=== PATIENT | female | born 1985 | race Caucasian/White ===

== ENCOUNTER 2019-10-09 03:39 | Emergency (ER) | payer BC, SELFPAY ==
--- NOTE | ~2019-10-09 | XR_ITS ---
EXAMINATION: XR chest 2V DATE: 10/09/2019 04:20 INDICATION: Midline chest pain TECHNIQUE: PA and lateral views of the chest were obtained. COMPARISON: Chest radiograph dated 08/23/2016 FINDINGS: The lungs remain clear with no focal airspace opacities, pulmonary edema, pleural effusion or pneumot horax. The cardiomediastinal silhouette is normal. Visualized bones and soft tissues are unremarkable . IMPRESSION: 1. No acute cardiopulmonary disease. Reviewed, dictated and finalized at location A.
[2019-10-09 03:43] VITALS: BP 135/81; PULSE 100; RESP 15; TEMP 36.8; O2SAT 100
[2019-10-09 03:45] VITALS: BP 135/81; PULSE 95; RESP 22; TEMP 36.8; O2SAT 100
--- NOTE | 2019-10-09 03:55 | ECG_ITS ---
Measurements Intervals [place] Rate: 70 P: 67 [place]: 130 QRS: 56 QRSD: 98 T: 35 QT: 410 QTc: 444 Interpretive Statements SINUS RHYTHM INCOMPLETE RIGHT BUNDLE BRANCH BLOCK BORDERLINE ECG Electronically Signed On 10-09-2019 7:09:27 CDT by Damir Balderas D.O.
--- NOTE | 2019-10-09 03:57 | ED.SOB ---
HPI - SOB/Dyspnea General Chief Complaint: Shortness of Breath/Dyspnea Stated Complaint: I can't breathe Time Seen by Provider: 10/09/19 03:44 History of Present Illness HPI Narrative: Sudden onset of sharp substernal chest pain shortly before coming in. Associated with SOB and feeling like she has to work for each breath . She reports that she has had a cough productive of yellow sputum recently and felt fatigued for the past 2 weeks. No fever, nausea, vomiting. Related Data Allergies Allergy/AdvReac Type Severity Reaction Status Date / Time adhesive Allergy Intermediate RASH Verified 09/14/19 15:29 latex Allergy Intermediate RASH Verified 09/14/19 15:29 hydrocodone Allergy Unknown Itching Verified 09/14/19 15:29 morphine Allergy Unknown Siezure Verified 09/14/19 15:29 phenol Allergy Unknown Swelling Verified 09/14/19 15:29 Review of Systems Review of Systems: All systems reviewed & are unremarkable except as noted in HPI and below Constitutional: Constitutional: Denies fever(s) and Reports weakness ENT: Denies sore throat Cardiovascular: Cardiovascular: Reports chest pain and Denies radiating jaw, neck or arm pain Respiratory: Respiratory: Reports cough and Reports dyspnea Neurologic: Reports dizziness, Reports headache(s) and Reports weakness PMFSH Past Medical History Medical History Chronic headaches Thyroid enlargement Family History Family History Grandparent Diabetes mellitus Breast cancer Father Family history unknown Social History Social History Smoking status: Never smoker Second hand tobacco smoke exposure: No Alcohol intake: current Drinks per week: 1 Substance use: never Substance use type: does not use Gender identity (if verbalized by the patient): Female Exam Const: General: healthy appearing, no acute distress and alert Orientation/consciousness: patient oriented x3 HENMT: Head: normal to inspection Chest: Chest palpation & inspection: normal inspection of the chest and no tenderness Resp: Effort & Inspection: normal respiratory effort Auscultation: clear to auscultation bilaterally Cardio: Rate: regular rate Rhythm: regular rhythm Skin: General skin exam: normal color Neuro: General: patient oriented x3 Speech: normal speech Extrem: General: normal to inspection Psych: Affect: Sad affect present and Anxious affect present Course Vital Signs Vital signs: Vital Signs Temperature 36.8 C 10/09/19 03:43 Pulse Rate 100 10/09/19 03:43 Respiratory Rate 15 10/09/19 03:43 Blood Pressure 135/81 10/09/19 03:43 Pulse Oximetry 100 10/09/19 03:43 Temperature 36.8 C 10/09/19 03:45 Pulse Rate 95 10/09/19 03:45 Respiratory Rate 22 H 10/09/19 03:45 Blood Pressure 135/81 10/09/19 03:45 Pulse Oximetry 100 10/09/19 03:45 MDM - SOB/Dyspnea MDM Narrative Medical decision making narrative: Mild improvement with toradol. Symptoms seems to be psychogenic. EKG and chest x-ray negative. Significantly reduced with ativan. ECG Data EKG #1: Attestation: I personally reviewed and interpreted this ECG as follows: ECG completion date: 10/09/19 ECG completion time: 03:53 EKG Interpretation: normal rate, sinus rhythm, no ectopy, no ST changes, normal QRS, normal QT and NL axis Discharge Plan Discharge Clinical Impression: Pleuritic chest pain Patient Disposition: Home, Self-Care Condition: Stable Instructions: Chest Pain (ED) Follow-up/Referrals: Lisa Pires MD [Primary Care Provider] -
[2019-10-09] MEDS: KETOROLAC (*BKC) 60 MG/2 ML VIAL IM (04:03)
[2019-10-09] MEDS: LORazepam 1 MG TABLET PO (05:04)
[2019-10-09 05:36] VITALS: BP 109/73; PULSE 75; RESP 16; TEMP 36.7; O2SAT 100
== END 2019-10-09 05:36 | disposition home or self-care (01) ==
PROVIDERS: Emergency Provider Emergency Medicine; PCP Family Medicine
DX: R07.81 Pleurodynia (principal); I45.10 Unspecified right bundle-branch block; E04.9 Nontoxic goiter, unspecified
CPT/HCPCS: 71046; 93005; 96372; 99283; A9270; J1885

== ENCOUNTER 2020-02-22 13:30 | Outpatient (CLI) | payer BC, SELFPAY ==
--- NOTE | ~2020-02-22 | XR_ITS ---
EXAMINATION: XR chest 2V EXAM DATE: 02/22/2020 13:43 INDICATION: Chest pain all over for 2 months since being COVID positive. TECHNIQUE: Frontal and lateral projections of the chest obtained and reviewed. Comparison is made to prior examination from 10/09/2019. FINDINGS: The lungs are clear. There are no pleural effusions. The cardiomediastinal silhouette is within normal limits. There is no pneumothorax suspected. The bones and soft tissues are unremarkab le. IMPRESSION: Unremarkable chest x-ray exam. Reviewed, dictated and finalized at location B. 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
== END 2020-02-22 13:31 | disposition home or self-care (01) ==
LOC: ANHIMG 13:35
PROVIDERS: PCP Family Medicine; Visit Provider Family Medicine
DX: R07.89 Other chest pain (principal)
CPT/HCPCS: 71046

== ENCOUNTER 2020-03-06 00:52 | Emergency (ER) | payer OTHER, BC, SELFPAY ==
--- NOTE | ~2020-03-06 | XR_ITS ---
EXAMINATION: XR chest 2V 03/06/2020 01:30 INDICATION: Chest pain and dyspnea PROCEDURE: PA and lateral views of the chest COMPARISON: 02/22/2020 FINDINGS: The lungs are clear. The cardiomediastinal silhouette is within normal limits. There are no pleural effusions. There is no pneumothorax suspected. IMPRESSION: 1: NO ACUTE CARDIOPULMONARY DISEASE. Reviewed, dictated and finalized at location A. D CARE
--- NOTE | ~2020-03-06 | CT_ITS ---
EXAMINATION: CTA chest PE protocol DATE: 03/06/2020 10:52 SOD STRIPPER INDICATION: Chest pain and dyspnea TECHNIQUE: Computed tomographic angiography (CTA) of the chest was performed with 100 mL Omnipaque-35 0 intravenous contrast. The dose-length product was 257.52 mGy-cm. Maximum intensity projection 3D-re constructions of the aorta and other arteries were constructed by the technologist on a separate work station. Automated exposure control and iterative reconstruction technique were employed. COMPARISON: CT dated 10/23/2017 FINDINGS: Study is technically adequate without evidence for pulmonary embolism. Heart size normal. N o thoracic lymphadenopathy. No evidence for aortic aneurysm or dissection. Significant pleural or per icardial effusion. Small fat-containing right diaphragmatic hernia. No pulmonary nodules or masses. N o focal airspace consolidation. No acute osseous abnormality. No osteolytic or osteoblastic lesions. IMPRESSION: 1. No acute cardiopulmonary disease. No evidence for pulmonary embolism. Reviewed, dictated and finalized at location A. STRIPPER
[2020-03-06 01:07] VITALS: BP 140/82; PULSE 75; RESP 18; O2SAT 100
--- NOTE | 2020-03-06 01:20 | ECG_ITS ---
Measurements Intervals [place] Rate: 80 P: 71 [place]: 118 QRS: 56 QRSD: 97 T: 24 QT: 382 QTc: 442 Interpretive Statements SINUS RHYTHM WITH SINUS ARRHYTHMIA WITH SHORT TX INTERVAL INCOMPLETE RIGHT BUNDLE BRANCH BLOCK NONSPECIFIC T-WAVE ABNORMALITY- ANTERIOR LEADS BORDERLINE ECG Electronically Signed On 03-06-2020 7:39:06 SENIOR [employer]YROLL MANAGER by Damir Balderas D.O.
--- NOTE | 2020-03-06 01:26 | PC.NURSE ---
pt to xray at this time
--- NOTE | 2020-03-06 01:46 | ED.CHESTPAIN ---
HPI - Chest Pain General Chief Complaint: Chest Pain Stated Complaint: CP/ SOB Time Seen by Provider: 03/06/20 00:56 Source: RN notes reviewed History of Present Illness HPI narrative: Patient presents to emergency department from home for chest pain. Patient states that over the past 3-week she has been having midsternal chest pain described as a burning sensation states that it is associated with shortness of breath and the pain gets worse with deep inspiration. Patient states she did have Covid approximately 2 months ago she denies any fevers or chills notes an occasional intermittent cough denies any abdominal pain nausea vomiting diarrhea or any other symptoms. The patient was seen by her primary care physician earlier this week and was started on steroids with minimal relief. She states she took no pain medication this evening Related Data Allergies Allergy/AdvReac Type Severity Reaction Status Date / Time adhesive Allergy Intermediate RASH Verified 03/01/20 08:24 latex Allergy Intermediate RASH Verified 03/01/20 08:24 hydrocodone Allergy Unknown Itching Verified 03/01/20 08:24 morphine Allergy Unknown Siezure Verified 03/01/20 08:24 phenol Allergy Unknown Swelling Verified 03/01/20 08:24 Review of Systems Review of Systems: Narrative: Gen.: Denies fevers or chills ENT: Denies congestion Respiratory: Reports shortness of breath CV: HPI GI: Denies abdominal pain nausea, emesis or diarrhea denies burning, urgency, frequency or hematuria Musculoskeletal: Denies back pain or muscle pain Neuro: Denies numbness, tingling, weakness or focal weakness Skin: Denies rash Except as documented, all other systems reviewed and negative [facility] Past Medical History Medical History (Updated 03/06/20 @ 03:31 by Russell Swan DO) Chronic headaches Thyroid enlargement Family History Family History Grandparent Diabetes mellitus Breast cancer Father Family history unknown Social History Social History Social History: Smoking status: Never smoker Second hand tobacco smoke exposure: No Alcohol intake: current Substance use: never Substance use type: does not use Gender identity (if verbalized by the patient): Female Exam Narrative: Exam Narrative: APPEARANCE: No acute distress, nontoxic, resting in bed EYES: EOMI HEENT: Normocephalic, atraumatic, OMM RESPIRATORY: No respiratory distress Clear to auscultation bilaterally with no rhonchi wheezing or rales. CARDIOVASCULAR: Regular rate and rhythm without murmurs rubs or gallops. Chest: Tender palpation over the lower midsternal chest wall no swelling or ecchymosis pain increased with deep inspiration ABDOMINAL: Soft, nontender, nondistended, no rebound or guarding MUSCULOSKELETAl: Moves all extremities. No clubbing, cyanosis or edema. NEURO: Awake and alert. Following commands, speech normal, no focal deficits SKIN:: Warm, dry. No rashes lesions or abrasions PSYCHIATRIC: Normal affect/mood, Course Course Emergency Course: Reviewed old records. Patient is had history of pleuritic chest pain dating back to September Discussed with patient results of workup and diagnosis. Discussed need for follow-up with primary care, proper use of medication, and reasons to return to the emergency department. Patient understands and agrees to current treatment plan Vital Signs Vital signs: Vital Signs Pulse Rate 75 03/06/20 01:07 Respiratory Rate 18 03/06/20 01:07 Blood Pressure 140/82 03/06/20 01:07 Pulse Oximetry 100 03/06/20 01:07 Pulse Rate 51 L 03/06/20 02:53 Respiratory Rate 20 03/06/20 02:53 Blood Pressure 117/75 03/06/20 02:53 Pulse Oximetry 98 03/06/20 02:53 MDM - Chest Pain MDM Narrative Medical decision making narrative: Patient's EKGs and labs are without significant high risk changes. Cardiac risk fact
[2020-03-06 01:55] LABS: Basophils Percent Auto 0.1 % (0.2-1.2); Hematocrit 35.5 % (37.0-47.0); Hemoglobin 11.5 g/dL (12.0-15.0); Immature Granulocyte Absolute 0.13 K/mm3 (0.00-0.031); Immature Granulocyte Percent A 0.9 % (0-0.5); Lymphocytes Absolute Auto 1.04 K/mm3 (0.9-3.2); Lymphocytes Percent Auto 7.4 % (18.3-44.2); Mean Corpuscular HGB Conc 32.4 g/dl (32-36); Mean Corpuscular Hemoglobin 29.7 pg (26-34); Mean Corpuscular Volume 91.7 fl (80-100); Mean Platelet Volume 10.7 fl (7.4-10.4); Monocytes Absolute Auto 0.7 K/mm3 (0.1-0.6); Monocytes Percent Auto 4.8 % (2.6-8.5); Neutrophils Absolute Auto 12.2 K/mm3 (1.3-6.7); Neutrophils Percent Auto 86.8 % (45.5-73.1); Platelet Count Result 289 k/mm3 (150-375); Red Blood Count 3.87 M/mm3 (4.2-5.4); Red Cell Distribution Width 13.5 % (11.5-14.5); White Blood Count 14.1 K/mm3 (4.5-10.0)
[2020-03-06] MEDS: LORazepam INJ (*CRX) 2 MG/ML VIAL 0.5 MG IV PUSH (01:57)
[2020-03-06] MEDS: KETOROLAC 30 MG/ML VIAL (*BKC) IV PUSH (01:57)
[2020-03-06 02:06] LABS: Prothrombin Time 14.1 Seconds (11.1-14.7)
[2020-03-06 02:07] LABS: Partial Thromboplastin Time 27.2 SECONDS (22.3-36.8)
[2020-03-06 02:08] LABS: Anion Gap 6 mmol/L (8-16); Blood Urea Nitrogen 14 mg/dL (7-17); Calcium 9.1 mg/dL (8.4-10.2); Carbon Dioxide 28 mmol/L (22-30); Chloride 104 mmol/L (98-107); Estimated Glomerular Filt Rate > 60; Glucose 135 mg/dL (65-105); Potassium 4.1 mmol/L (3.4-5.0); Sodium 138 mmol/L (137-145)
[2020-03-06 02:09] LABS: D Dimer 0.84 ug/mL (<0.48)
[2020-03-06 02:15] LABS: CRP < 0.5 mg/dL (<1.0)
[2020-03-06 02:21] LABS: Troponin I < 0.012 ng/mL (0.000-0.034)
[2020-03-06 02:26] LABS: Erythrocyte Sedimentation Rate 10 mm/hr (0-20)
[2020-03-06 02:53] VITALS: BP 117/75; PULSE 51; RESP 20; O2SAT 98
[2020-03-06 03:50] VITALS: BP 119/77; PULSE 56; RESP 18; O2SAT 97
[2020-03-06] MEDS: ALBUTEROL SULFATE (*SP) AEROSOL 1 PUFF 2 PUFF INHALATION (03:59)
[2020-03-06 04:04] VITALS: PULSE 63; RESP 16
[2020-03-06 04:13] VITALS: BP 124/76; PULSE 60; RESP 17; O2SAT 96
== END 2020-03-06 04:15 | disposition home or self-care (01) ==
PROVIDERS: Emergency Provider Emergency Medicine; PCP Family Medicine
DX: J40 Bronchitis, not specified as acute or chronic (principal); E04.9 Nontoxic goiter, unspecified; I45.10 Unspecified right bundle-branch block; R94.31 Abnormal electrocardiogram [ECG] [EKG]
CPT/HCPCS: 36415; 71046; 71275; 80048; 81025; 84484; 85025; 85380; 85610; 85652; 85730; 86140; 93005; 94640; 96374; 96375; 99284; A9270; J1885; J2060; Q9967

== ENCOUNTER → 2020-05-31 14:06 | Outpatient (CLI) | payer OTHER, BC, SELFPAY ==
--- NOTE | ~2020-05-31 | MR_ITS ---
EXAMINATION: MR cervical spine wo/w con EXAM DATE: 05/31/2020 16:01 INDICATION: M54.12 - Radiculopathy, cervical region paresthesia of skin, radiculopathy. Right arm wea kness. TECHNIQUE: Multi-sequential, multiplanar MR images of the cervical spine were obtained without contra st. Axial T2, axial T2 MERGE sequence. Sagittal T1, T2, T2 fat saturation images also obtained. Axi al T1 weighted sequence. Patient was then injected with 15 mL Multihance intravenous contrast and re imaged. Postcontrast axial and sagittal T1-weighted fat saturation sequences were obtained. There ar e no prior studies for comparison. FINDINGS: The vertebral bodies are aligned in the AP dimension. Vertebral body and disc heights are well-maintained. There are no suspicious marrow signal abnormalities. The spinal cord signal intensit y and intrinsic morphology is normal. Cervicomedullary junction is normal in appearance. There are no areas of abnormal enhancement on the post contrast images. Mildly low-lying cerebellar tonsils not m eeting criteria for Chiari I malformation. Level by level evaluation: C2-C3: Disc does not extend beyond the endplate margin. Uncovertebral joint arthropathy: None. Facet joint arthropathy: Mild bilateral. Neural foraminal stenosis: No stenosis. Central canal stenosis: No stenosis. C3-C4: Disc does not extend beyond the endplate margin. Uncovertebral joint arthropathy: None. Facet joint arthropathy: Mild bilateral. Neural foraminal stenosis: No stenosis. Central canal stenosis: No stenosis. C4-C5: Disc does not extend beyond the endplate margin. Uncovertebral joint arthropathy: None. Facet joint arthropathy: Mild bilateral. Neural foraminal stenosis: No stenosis. Central canal stenosis: No stenosis. C5-C6: Disc does not extend beyond the endplate margin. Uncovertebral joint arthropathy: Mild bilateral. Facet joint arthropathy: None. Neural foraminal stenosis: No stenosis. Central canal stenosis: No stenosis. C6-C7: Disc does not extend beyond the endplate margin. Uncovertebral joint arthropathy: Mild left. Facet joint arthropathy: Mild bilateral. Neural foraminal stenosis: No stenosis. Central canal stenosis: No stenosis. C7-T1: Disc does not extend beyond the endplate margin. Uncovertebral joint arthropathy: None. Facet joint arthropathy: Mild bilateral. Neural foraminal stenosis: No stenosis. Central canal stenosis: No stenosis. IMPRESSION: 1. Mild cervical arthropathy. 2. Normal cord signal. 3. Mildly low-lying cerebellar tonsils. Reviewed, dictated and finalized at location A.
--- NOTE | ~2020-05-31 | MR_ITS ---
EXAMINATION: MR brain IAC wo/w con EXAM DATE: 05/31/2020 16:02 INDICATION: M54.81 - Occipital neuralgia Paresthesia of skin, radiculopathy . Right ear pain, right-s ided numbness, right arm weakness, right leg pressure. Symptoms and traumatic but progressing. Histor y of head injuries. TECHNIQUE: Multi-sequential, multiplanar MR images of the brain, brainstem, internal auditory canals were obtained without contrast. Whole brain sagittal T1, axial diffusion, gradient echo (T2*), T1, T 2, FLAIR sequences obtained. High resolution coronal 3-D FIESTA, coronal T1 FSE, axial T1 FSPGR of t he internal auditory canals. Patient was then injected with 15 cc Multihance contrast intravenously. Postcontrast axial and coronal T1 weighted whole brain, axial and coronal high resolution T1 IAC seq uences obtained. Comparison is made to prior examination from 10/24/2017. FINDINGS: No evidence of mastoid or middle ear opacification. The 7th/8th cranial nerve complexes a re symmetric, normal in course and caliber. No cerebellopontine angle masses. Posterior fossa unrem arkable. Mildly low-lying cerebellar tonsils, not meeting criteria for Chiari 1 malformation. There are no are as of restricted diffusion to suggest acute infarction. There is no acute hemorrhage seen on the T2* , a hemosiderin sensitive sequence. No intraparenchymal brain mass. The ventricles are normal in siz e. There are no extra-axial collections. Flow voids are seen in the cerebral arteries on the T2-lexi ghted sequences consistent with their expected patency. The orbits are unremarkable. Soft tissue is unremarkable. There are no areas of abnormal enhancement on the postcontrast images. IMPRESSION: Unremarkable brain/IAC examination. Reviewed, dictated and finalized at location A.
[2020-05-31 14:35] LABS: Estimated Glomerular Filt Rate > 60
== END ==
PROVIDERS: PCP Family Medicine; Visit Provider Family Medicine
DX: M47.812 Spondylosis without myelopathy or radiculopathy, cervical region (principal); M54.81 Occipital neuralgia
CPT/HCPCS: 70553; 72156; A9577

== ENCOUNTER 2020-10-03 13:45 | Emergency (ER) | payer BC, SELFPAY ==
--- NOTE | ~2020-10-03 | XR_ITS ---
EXAMINATION: XR elbow RT min 3V DATE: 10/03/2020 14:35 INDICATION: Right elbow pain. TECHNIQUE: 4 views of right elbow were obtained. COMPARISON: None. FINDINGS: Bone alignment is normal. No fracture. Joint spaces are well maintained. There is no elbow joint effusion. IMPRESSION: 1. Normal right elbow. Reviewed, dictated and finalized at location A. IMPRESSION: 1. Normal right elbow.
--- NOTE | ~2020-10-03 | XR_ITS ---
EXAMINATION: XR shoulder RT min 2V DATE: 10/03/2020 14:34 INDICATION: Right shoulder pain. TECHNIQUE: 4 views of right shoulder were obtained. COMPARISON: None. FINDINGS: Bone alignment is normal. No fracture. Joint spaces are well maintained. IMPRESSION: 1. Normal right shoulder. Reviewed, dictated and finalized at location A. IMPRESSION: 1. Normal right shoulder.
[2020-10-03 14:18] VITALS: BP 144/91; PULSE 96; RESP 18; TEMP 37.4; O2SAT 100
[2020-10-03 16:09] VITALS: BP 137/95; PULSE 89; RESP 18; TEMP 36.7; O2SAT 100
--- NOTE | 2020-10-03 17:10 | ED.GENADULT ---
HPI - General Adult General Chief complaint: Extremity Injury, Upper Stated complaint: right arm not working Time Seen by Provider: 10/03/20 16:07 Source: patient and RN notes reviewed Mode of arrival: ambulatory Limitations: no limitations History of Present Illness HPI narrative: Patient is a 35-year-old female who presents with paresthesia of the right upper extremity patient has had this for years and gets exacerbations throughout the year has been followed by primary care for this and has a neurology referral coming up she gets episodes of shooting pain from the right upper and lower extremities that comes and goes patient today notes that she had an occurrence over the weekend which has persisted for the last 3 days she denies any other injury trauma or complaints it is localized to the upper extremity made worse with activity and movement Related Data Home Medications Medication Instructions Recorded Confirmed mecobalamin (vitamin B12) [B12 mcg PO 10/03/20 10/03/20 Active] Allergies Allergy/AdvReac Type Severity Reaction Status Date / Time adhesive Allergy Intermediate RASH Verified 10/03/20 16:15 latex Allergy Intermediate RASH Verified 10/03/20 16:15 hydrocodone Allergy Unknown Itching Verified 10/03/20 16:15 morphine Allergy Unknown Siezure Verified 10/03/20 16:15 phenol Allergy Unknown Swelling Verified 10/03/20 16:15 Review of Systems Review of Systems: All systems reviewed & are unremarkable except as noted in HPI and below PMFSH Past Medical History Medical History Chronic headaches Complex posttraumatic stress disorder Thyroid enlargement Family History Family History Grandparent Diabetes mellitus Breast cancer Father Family history unknown Social History Social History Social History: Smoking status: Never smoker Second hand tobacco smoke exposure: No Alcohol intake: current Alcohol use details: Rarely Substance use: never Substance use type: does not use Gender identity (if verbalized by the patient): Female Exam Narrative: GENERAL: Well-appearing, well-nourished, and in no acute distress. HEAD: Normocephalic, atraumatic. EYES: PERRLA and EOMI. ENT: Nares clear, no rhinorrhea or epistaxis. Mucous membranes moist. NECK: Supple. No adenopathy or masses. No carotid bruits or JVD CHEST: Clear to auscultation. No respiratory distress. No wheezes rales or rhonchi HEART: Regular rate and rhythm. No murmur heard. EXTREMITIES: Normal range of motion. No edema. SKIN: Warm, dry, no rash. NEURO: No focal deficits. Alert and oriented x3. Cranial nerves II through XII grossly intact. Normal speech and gait. Motor and sensory intact and symmetrical in extremities PSYCH: Normal mood and affect. Course Course Emergency Course: Patient in the room no distress will be discharged to follow with primary care and her neurology appointment felt appropriate for outpatient reevaluation hemodynamically stable no distress Vital Signs Vital signs: Vital Signs Temperature 99.4 F 10/03/20 14:18 Pulse Rate 96 10/03/20 14:18 Respiratory Rate 18 10/03/20 14:18 Blood Pressure 144/91 H 10/03/20 14:18 Pulse Oximetry 100 10/03/20 14:18 Temperature 98.1 F 10/03/20 16:09 Pulse Rate 89 10/03/20 16:09 Respiratory Rate 18 10/03/20 16:09 Blood Pressure 137/95 H 10/03/20 16:09 Pulse Oximetry 100 10/03/20 16:09 Medical Decision Making MDM Narrative Medical decision making narrative: Patient's paresthesias are without focal neurological deficits on exam. Subarachnoid hemorrhage is felt to be unlikey at this time. There is no history of fever, and neck is supple without meningismus, making meningitis unlikely. No traumatic history or signs of trauma on exam. No risk factors f
[2020-10-03] MEDS: IBUPROFEN 600 MG TABLET PO (17:25)
[2020-10-03 17:37] VITALS: BP 113/73; PULSE 96; RESP 15; TEMP 36.7; O2SAT 100
== END 2020-10-03 17:35 | disposition home or self-care (01) ==
PROVIDERS: Emergency Provider Emergency Medicine; PCP Family Medicine
DX: R20.2 Paresthesia of skin (principal); E04.9 Nontoxic goiter, unspecified
CPT/HCPCS: 73030; 73080; 99284; A9270

== ENCOUNTER 2020-10-20 14:49 | Observation (INO) | payer BC, SELFPAY ==
[2020-10-20] VITALS (26 sets, daily range): BP systolic 79–155; BP diastolic 34–95; PULSE 18–96; RESP 7–20; TEMP 36.5–38.3; O2SAT 96–100; BMI 29.7
--- NOTE | ~2020-10-20 | US_ITS ---
EXAMINATION: US thyroid DATE: 10/21/2020 09:47 INDICATION: Enlarged thyroid. TECHNIQUE: Multiple ultrasound images of the thyroid were obtained. COMPARISON: Ultrasound 01/23/2019 FINDINGS: The right thyroid lobe measures 4.7 x 1.0 x 1.4 cm. The left thyroid lobe measures 3.8 x 1.1 x 1.3 c m. In the right thyroid lobe, there is a 5 mm solid, hypoechoic, qnnhp-tumq-usuy nodule with lobulat ed margin without echogenic foci (TI-RADS TR4). IMPRESSION: 1. Small thyroid nodule, likely not clinically significant. No follow-up is needed. Reviewed, dictated and finalized at location A. IMPRESSION: 1. Small thyroid nodule, likely not clinically significant. No follow-up is nee ded.
--- NOTE | ~2020-10-20 | CT_ITS ---
EXAMINATION: CTA brain carotid DATE: 10/20/2020 15:47 INDICATION: Speech deficit. Right hemiparesis. TECHNIQUE: Computed tomographic angiography (CTA) of the head was performed without and with 100 mL O mnipaque-350 intravenous contrast. CTA of the neck was performed with intravenous contrast. Automated exposure control and iterative reconstruction technique were employed. The dose-length product was 1 614.77 mGy-cm. Maximum intensity projection and volume rendered 3D-reconstructions were created by wale martinez technologist on a separate workstation. COMPARISON: Head CT 06/09/2018, brain MRI 05/31/2020 FINDINGS: HEAD CTA: There is no intracranial hemorrhage, acute infarction, or abnormal intracranial mass lesion . The ventricles are normal in size. The orbits are normal. The mastoid air cells are normal. The precious tebral arteries are codominant. There is no significant stenosis of basilar artery or the posterior c erebral arteries. The posterior communicating arteries are normal. There is no significant stenosis o f the intracranial internal carotid arteries or anterior or middle cerebral arteries. Anterior commun icating artery is normal. There is no aneurysm. NECK CTA: There are no pathologically enlarged lymph nodes. There is no significant stenosis of the v ertebral arteries. There is no visible plaque in the proximal internal carotid arteries. There is 0% stenosis of the proximal right internal carotid artery relative to normal distal artery lumen diamete r (NASCET criteria). There is 0% stenosis of the proximal left internal carotid artery relative to no rmal distal artery lumen diameter. There is multilevel facet joint osteoarthritis. IMPRESSION: 1. Normal brain. No aneurysm or significant intracranial arterial stenosis. 2. 0% stenosis of the proximal internal carotid arteries relative to normal distal artery lumen diame ters (NASCET criteria). Reviewed, dictated and finalized at location A. IMPRESSION: 1. Normal brain. No aneurysm or significant intracranial arterial stenosis. 2. 0% stenosis of the proximal internal carotid arteries relative to normal dis annabella artery lumen diameters (NASCET criteria).
--- NOTE | ~2020-10-20 | XR_ITS ---
EXAMINATION: XR barium swallow modified EXAM DATE: 10/21/2020 10:07 INDICATION: Aphasia, right hemiparesis. TECHNIQUE: Modified barium esophagram was performed by speech pathologist with radiologist Dr. Camden Jackson present to administered fluoroscopy. Speech pathologist administered barium in varying consis tencies as per speech pathologist documentation. This was recorded on tape. There was total fluorosc opic time of 0.5 minutes The DAP for this procedure was 0.25 Gycm2. A total of 2 images sent to [facility] from the exam. FINDINGS: Oral stage: Adequate function. Pharyngeal phase: Adequate function. Laryngeal penetration: None. Aspiration: None. Laryngeal sensitivity: Present. IMPRESSION: Normal modified esophagram exam. Please refer to speech pathologist findings and specifi c feeding recommendations. Reviewed, dictated and finalized at location A. IMPRESSION: Normal modified esophagram exam. Please refer to speech pathologis t findings and specific feeding recommendations.
--- NOTE | ~2020-10-20 | MR_ITS ---
EXAMINATION: MR brain/brain stem wo/w con DATE: 10/21/2020 09:33 INDICATION: Right hemiparesis. Expressive aphasia. Chronic headache. TECHNIQUE: Magnetic resonance imaging (MRI) of the brain and brainstem was performed without and with 15 mL MultiHance intravenous contrast. Sequences included sagittal and axial T1-weighted FSE, axial diffusion-weighted FS EPI, axial T2*-weighted GRE, axial T2-weighted FLAIR Propeller, and axial T2-we ighted Propeller. Postcontrast sequences included axial, sagittal, and coronal T1-weighted FSE. Appar ent diffusion coefficient (ADC) maps were created. COMPARISON: Brain MRI 05/31/2020, head CT 10/20/2020 FINDINGS: There is no intracranial hemorrhage, acute infarction, or abnormal intracranial mass lesion . The ventricles are normal in size. The paranasal sinuses are clear. The orbits are normal. The mast oid air cells are normal. IMPRESSION: 1. Normal brain. Reviewed, dictated and finalized at location A. IMPRESSION: 1. Normal brain.
[2020-10-20 15:53] LABS: Basophils Percent Auto 0.2 % (0.2-1.2); Eosinophils Absolute Auto 0.1 K/mm3 (0-0.3); Eosinophils Percent Auto 0.8 % (0-4.4); Hematocrit 39.8 % (37.0-47.0); Hemoglobin 13.2 g/dL (12.0-15.0); Immature Granulocyte Absolute 0.03 K/mm3 (0.00-0.031); Immature Granulocyte Percent A 0.3 % (0-0.5); Lymphocytes Absolute Auto 2.06 K/mm3 (0.9-3.2); Lymphocytes Percent Auto 23.1 % (18.3-44.2); Mean Corpuscular HGB Conc 33.2 g/dl (32-36); Mean Corpuscular Hemoglobin 29.6 pg (26-34); Mean Corpuscular Volume 89.2 fl (80-100); Monocytes Absolute Auto 0.6 K/mm3 (0.1-0.6); Monocytes Percent Auto 6.6 % (2.6-8.5); Neutrophils Absolute Auto 6.1 K/mm3 (1.3-6.7); Platelet Count Result 254 k/mm3 (150-375); Red Blood Count 4.46 M/mm3 (4.2-5.4); Red Cell Distribution Width 12.6 % (11.5-14.5); White Blood Count 8.9 K/mm3 (4.5-10.0)
[2020-10-20 16:05] LABS: Prothrombin Time 12.6 Seconds (11.1-14.7)
[2020-10-20 16:06] LABS: Partial Thromboplastin Time 32.1 SECONDS (22.3-36.8)
[2020-10-20 16:17] LABS: Anion Gap 11 mmol/L (8-16); Blood Urea Nitrogen 12 mg/dL (7-17); Calcium 9.6 mg/dL (8.4-10.2); Carbon Dioxide 23 mmol/L (22-30); Chloride 103 mmol/L (98-107); Estimated CRCL calculation 94 ml/min; Estimated Glomerular Filt Rate > 60; Glucose 105 mg/dL (65-110); Potassium 3.9 mmol/L (3.4-5.0); Sodium 137 mmol/L (137-145)
[2020-10-20 16:28] LABS: Troponin I < 0.012 ng/mL (0.000-0.034)
--- NOTE | 2020-10-20 16:33 | ED.NEUROSD ---
HPI - Neuro Symptoms/Deficit General Chief Complaint: Weakness Stated Complaint: right side weakness Time Seen by Provider: 10/20/20 16:10 Source: patient Mode of arrival: ambulatory Limitations: no limitations History of Present Illness HPI Narrative: Patient is a 35-year-old female complaining of right-sided weakness and numbness that started 3 weeks ago but worse today. Patient also complaining of aphasia that started today approximately 2 hours prior to arrival. Patient states that her right sided weakness and muscles worse today and she fell due to it. Patient's states that she was started on gabapentin for right-sided paresthesia approximately 3 weeks ago due to pinched nerve . Related Data Home Medications Medication Instructions Recorded Confirmed mecobalamin (vitamin B12) [B12 mcg PO 10/03/20 10/03/20 Active] Allergies Allergy/AdvReac Type Severity Reaction Status Date / Time adhesive Allergy Intermediate RASH Verified 10/05/20 16:01 latex Allergy Intermediate RASH Verified 10/05/20 16:01 hydrocodone Allergy Unknown Itching Verified 10/05/20 16:01 morphine Allergy Unknown Siezure Verified 10/05/20 16:01 phenol Allergy Unknown Swelling Verified 10/05/20 16:01 Review of Systems Review of Systems: All systems reviewed & are unremarkable except as noted in HPI and below Constitutional: Constitutional: Denies body ache(s), Denies chills, Denies excessive sweating, Denies fatigue, Denies fever(s), Denies headache(s), Denies lethargy, Denies malaise, Denies weakness and Denies weight loss Eyes: Eyes: Denies blurry vision, Denies change in vision and Denies loss of vision ENT: Denies dizziness, Denies ear discharge, Denies headache(s), Denies lip swelling, Denies epistaxis, Denies nasal congestion, Denies neck pain, Denies throat swelling and Denies tongue swelling Cardiovascular: Cardiovascular: Denies chest pain, Denies chest pain at rest, Denies chest pain with activity, Denies diaphoresis, Denies rapid heart rate, Denies edema, Denies irregular heart rhythm, Denies lightheadedness, Denies palpitations, Denies dyspnea and Denies dyspnea on exertion Respiratory: Respiratory: Denies chest congestion, Denies cough, Denies hemoptysis, Denies dyspnea and Denies dyspnea on exertion Gastrointestinal: Gastrointestinal: Denies abdominal pain, Denies melena, Denies hematochezia, Denies diarrhea, Denies nausea, Denies vomiting and Denies hematemesis Musculoskeletal: Musculoskeletal: Denies abnormal gait, Denies deformity, Denies joint swelling, Denies limited range of motion, Denies neck pain and Denies numbness Neurologic: Denies confusion, Denies dizziness, Denies headache(s), Denies loss of vision and Denies Other visual disturbances Psychiatric: Psychiatric: Denies confusion, Denies depression, Denies auditory hallucinations, Denies homicidal ideation and Denies suicidal ideation Endocrine: Endocrine: Denies cold intolerance, Denies excessive sweating, Denies fatigue, Denies heat intolerance and Denies palpitations Hematologic/Lymphatic: Hematologic/Lymphatic: Denies easy bleeding and Denies easy bruising Allergic/Immunologic: Allergic/Immunologic: Denies lip swelling, Denies throat swelling and Denies tongue swelling PMFSH Past Medical History Medical History Chronic headaches Complex posttraumatic stress disorder Thyroid enlargement Family History Family History Grandparent Diabetes mellitus Breast cancer Father Family history unknown Social History Social History Social History: Second hand tobacco smoke exposure: No Alcohol intake: current Alcohol use details: Rarely Substance use: never Substance use type: does not use Gender identity (if verbalized by the patient): Female Exam Const: G
--- NOTE | 2020-10-20 17:23 | ECG_ITS ---
Measurements Intervals [place] Rate: 72 P: 59 [place]: 122 QRS: 45 QRSD: 100 T: 33 QT: 381 QTc: 419 Interpretive Statements SINUS RHYTHM WITH SINUS ARRHYTHMIA INCOMPLETE RIGHT BUNDLE BRANCH BLOCK BASELINE ARTIFACT- I, III, AVL BORDERLINE ECG Electronically Signed On 10-20-2020 19:39:47 CDT by Damir Balderas D.O.
[2020-10-20] MEDS: CLOPIDOGREL BISULFATE 75 MG TABLET PO (18:07)
[2020-10-20] MEDS: ASPIRIN 81 MG CHEWABLE TABLET 324 MG PO (18:07)
[2020-10-20] MEDS: LACTATED RINGERS 1,000 ML 125 ML IV CONT (19:37)
--- NOTE | 2020-10-20 20:00 | PM.IMHP ---
H&P: HPI History of Present Illness Date/Time: 10/20/20 20:00 This is a 35 year old female patient who has been having some numbness and tingling to the right side of her face and right side of her body. She did see her primary care doctor for this and was placed on gabapentin. She has been having the symptoms on and off for 3 weeks.The patient stated that she did not take her gabepentin for two days.The patient came to ed today due to expressive aphasia and right sided weakness. cta brain was read as Normal brain. No aneurysm or significant intracranial arterial stenosis.2. 0% stenosis of the proximal internal carotid arteries relative to normal distal artery lumen diameters (NASCET criteria).The patient was started on plavix and asa. The patient has expressive aphasia and weakness to the right upper lower extremity. The patient is communicating by texting on her phonewith one hand or answering yes and no questions. Neurology was consulted.The patient was admitted to observation services on 10/20/20. Chief Complaint: Right-sided weakness Review of Systems Review of Systems: Unable to obtain due to expressive aphasia [facility] Past Medical History Medical History (Updated 10/20/20 @ 17:26 by Russell Ruiz MD) Chronic headaches Complex posttraumatic stress disorder Thyroid enlargement Surgical History Surgical History (Updated 10/20/20 @ 20:20 by Melissa Finch NP) H/O dilation and curettage Family History Family History Grandparent Diabetes mellitus Breast cancer Father Neuropathy Mother Neuropathy Family history unknown Social History Social History (Updated 10/20/20 @ 20:24 by Melissa Finch NP) Social History: and the is the durable poa. She is a full code. She has one child. 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 The patient occasionally drinks alcohol socially. She is a lifelong nonsmoker. No marijuana or illicit drugs. Smoking status: Never smoker Second hand tobacco smoke exposure: No Alcohol intake: current Alcohol use details: Rarely Substance use: never Substance use type: does not use Gender identity (if verbalized by the patient): Female Spiritual care concerns: No Meds Home Medications and Allergies Home Medications Medication Instructions Recorded Confirmed Type mecobalamin (vitamin B12) [B12 2,000 mcg PO DAILY 08/09/21 08/26/21 History Active] gabapentin 100 mg capsule 100 mg PO TID PRN #90 cap 10/05/20 10/20/20 Rx viihzibotusk-kwbx-tpydu acid 1 tablet PO DAILY 10/20/20 10/20/20 History [Centrum Women] Allergies Allergy/AdvReac Type Severity Reaction Status Date / Time adhesive Allergy Intermediate RASH Verified 10/05/20 16:01 latex Allergy Intermediate RASH Verified 10/05/20 16:01 hydrocodone Allergy Unknown Itching Verified 10/05/20 16:01 morphine Allergy Unknown Siezure Verified 10/05/20 16:01 phenol Allergy Unknown Swelling Verified 10/05/20 16:01 Vital Signs Vital Signs - 24 hr 10/20/20 14:52 10/20/20 15:06 10/20/20 15:07 Temperature 38.3 C H Pulse Rate 18 L 80 96 Respiratory Rate 20 20 15 Blood Pressure 155/79 H 145/91 H Pulse Oximetry 100 100 96 10/20/20 15:34 10/20/20 15:45 10/20/20 16:00 Temperature Pulse Rate 82 72 70 Respiratory Rate 16 7 L 13 Blood Pressure 139/84 Pulse Oximetry 100 100 100 10/20/20 16:16 10/20/20 16:17 10/20/20 16:30 Temperature Pulse Rate 86 72 76 Respiratory Rate 15 14 14 Blood Pressure 107/80 Pulse Oximetry 100 100 100 10/20/20 16:31 10/20/20 16:45 10/20/20 17:00 Temperature Pulse Rate 76 83 Respiratory Rate 16 16 Blood Pressure 79/34 L Pulse Oximetry 96 100 10/20/20 17:16 10/20/20 17:17 10/20/20 17:29 Temperature Pulse Rate 85 Respiratory Rate Blood Pressure 118/92 H Pulse Oximetry 100 100 10/20/20 17:30 10/20/20 17:31 0
[2020-10-21] VITALS (10 sets, daily range): BP systolic 114–116; BP diastolic 65–75; PULSE 61–83; RESP 20; TEMP 36–36.8; O2SAT 99–100
--- NOTE | 2020-10-21 | ECHOL_ITS ---
Patient Info Name: Bethany Dacosta Age: 35 years : 1985 Gender: Female Ht: 66 in Wt: 184 lbs BSA: 2.00 m2 HR: 64 bpm BP: 116 / 65 mmHg Exam Date: 10/21/2020 2:21 PM Exam Location: [facility] Patient Status: Outpatient Admit Date: 10/20/2020 Staff Ordering Physician: Krystyna Sarmiento [employer] Farmworker: Hernandez Hardin RDCS, RT Attending Provider: Rick Gabriel MD Referring Physician: Torsten GOMES; Exam Type: CA echo limited Study Info Indications I63.239 - Cerebral infarction due to unspecified occlusion or stenosis of unspecified carotid arteries Limited two-dimensional transthoracic echocardiogram is performed. Summary 1. Limited echocardiogram to assess LV function. 2. Definity contrast administered improved wall motion interpretation. 3. Left ventricular chamber dimension is normal. 4. Left ventricular systolic function is normal, estimated at 60-65%. Left Ventricle Limited echocardiogram to assess LV function. The left ventricular diastolic function is indeterminate. Tissue doppler is not performed. Definity contrast administered improved wall motion interpretation. Left ventricular chamber dimension is normal. Left ventricular systolic function is normal, estimated at 60-65%. Report Signatures
[2020-10-21] MEDS: LACTATED RINGERS 1,000 ML 125 ML IV CONT (03:54)
[2020-10-21 06:09] LABS: Basophils Percent Auto 0.3 % (0.2-1.2); Eosinophils Absolute Auto 0.1 K/mm3 (0-0.3); Eosinophils Percent Auto 0.9 % (0-4.4); Hematocrit 37.1 % (37.0-47.0); Hemoglobin 12.1 g/dL (12.0-15.0); Immature Granulocyte Absolute 0.02 K/mm3 (0.00-0.031); Immature Granulocyte Percent A 0.3 % (0-0.5); Lymphocytes Absolute Auto 1.55 K/mm3 (0.9-3.2); Lymphocytes Percent Auto 22.3 % (18.3-44.2); Mean Corpuscular HGB Conc 32.6 g/dl (32-36); Mean Corpuscular Hemoglobin 29.2 pg (26-34); Mean Corpuscular Volume 89.4 fl (80-100); Mean Platelet Volume 10.8 fl (7.4-10.4); Monocytes Absolute Auto 0.4 K/mm3 (0.1-0.6); Monocytes Percent Auto 5.9 % (2.6-8.5); Neutrophils Absolute Auto 4.9 K/mm3 (1.3-6.7); Neutrophils Percent Auto 70.3 % (45.5-73.1); Platelet Count Result 218 k/mm3 (150-375); Red Blood Count 4.15 M/mm3 (4.2-5.4); Red Cell Distribution Width 12.5 % (11.5-14.5); White Blood Count 6.9 K/mm3 (4.5-10.0)
[2020-10-21 06:25] LABS: Alanine Aminotransferase 9 U/L (4-35); Albumin Level 3.8 g/dL (3.5-5.1); Alkaline Phosphatase 47 U/L (38-126); Anion Gap 4 mmol/L (8-16); Aspartate Amino Transferase 20 U/L (14-36); Bilirubin,Total 1.3 mg/dL (0.2-1.3); Blood Urea Nitrogen 10 mg/dL (7-17); Calcium 8.9 mg/dL (8.4-10.2); Carbon Dioxide 26 mmol/L (22-30); Chloride 108 mmol/L (98-107); Estimated CRCL calculation 85 ml/min; Estimated Glomerular Filt Rate > 60; Glucose 90 mg/dL (65-110); Magnesium 1.9 mg/dL (1.6-2.3); Sodium 138 mmol/L (137-145)
--- NOTE | 2020-10-21 12:45 | PCSTNOTE ---
Please refer to the Modified Barium Swallow Evaluation in the EMR.
--- NOTE | 2020-10-21 12:50 | PM.IMPN ---
Progress Note: A&P Assessment and Plan (1) Acute right-sided weakness: Code(s): R53.1 - Weakness Status: Acute Assessment and Plan: Neurology consulted CTA normal salud; no aneurysm or significant intracranial arterial stenosis of brain MRI showed normal brain PT/OT ST Barium swallow normal Continue Plavix and aspirin Neuro checks (2) Thyroid enlargement: Code(s): E04.9 - Nontoxic goiter, unspecified Status: Acute Assessment and Plan: US-->Small thyroid nodule, likely not clinically significant. No follow-up is needed (3) Occipital neuralgia: Code(s): M54.81 - Occipital neuralgia Status: Acute Assessment and Plan: Continue gabapentin Subjective Date/time seen: 10/21/20 12:50 Interval history: pt seen and evaluated; no acute events overnight; continues with aphasia Review of Systems Review of Systems: All systems reviewed & are unremarkable except as noted in HPI and below Exam Const: General: no acute distress, alert and awake Orientation/consciousness: patient oriented x3 HENMT: Head: normocephalic and atraumatic Ears: hearing grossly normal bilaterally and external ears normal Face and sinus: face symmetric Mouth: Yes Normal oral and palatal mucosa present Eyes: Pupils: Equal, round and reactive pupils present EOM: EOMs intact bilaterally Neck: Neck: full ROM, trachea midline and no JVD Thyroid: thyroid normal Chest: Chest palpation & inspection: normal inspection of the chest Resp: Effort & Inspection: normal respiratory effort Auscultation: clear to auscultation bilaterally Cardio: Jugular venous distension: no JVD Rate: regular rate Rhythm: regular rhythm Heart sounds: S1 normal heart sound present and S2 normal heart sound present GI: Inspection: normal to inspection GI Palp: Yes Soft to palpation Percussion: Yes normal to percussion Auscultation: normal bowel sounds : General: Yes no CVA tenderness Back/Spine/Pelvis: Back: no CVA tenderness Skin: General skin exam: normal color Rashes: no rashes Neuro: General: patient oriented x3 Cognition (Neuro): normal cognition Speech: aphasia and Expressive aphasia present Motor exam (neuro): Pronator motor function present pronator drift of right upper extremity Other: BLE weakness Psych: Appearance: grossly normal Affect: normal affect Judgement: Good judgement present (Psych) Objective Data Vital Signs Vital Signs: Vital Signs - 24 hr 10/20/20 14:52 10/20/20 15:06 10/20/20 15:07 Temperature 38.3 C H Pulse Rate 18 L 80 96 Respiratory Rate 20 20 15 Blood Pressure 155/79 H 145/91 H Pulse Oximetry 100 100 96 10/20/20 15:34 10/20/20 15:45 10/20/20 16:00 Temperature Pulse Rate 82 72 70 Respiratory Rate 16 7 L 13 Blood Pressure 139/84 Pulse Oximetry 100 100 100 10/20/20 16:16 10/20/20 16:17 10/20/20 16:30 Temperature Pulse Rate 86 72 76 Respiratory Rate 15 14 14 Blood Pressure 107/80 Pulse Oximetry 100 100 100 10/20/20 16:31 10/20/20 16:45 10/20/20 17:00 Temperature Pulse Rate 76 83 Respiratory Rate 16 16 Blood Pressure 79/34 L Pulse Oximetry 96 100 10/20/20 17:16 10/20/20 17:17 10/20/20 17:29 Temperature Pulse Rate 85 Respiratory Rate Blood Pressure 118/92 H Pulse Oximetry 100 100 10/20/20 17:30 10/20/20 17:31 10/20/20 17:45 Temperature Pulse Rate Respiratory Rate Blood Pressure 123/95 H Pulse Oximetry 100 100 100 10/20/20 17:46 10/20/20 18:01 10/20/20 18:07 Temperature Pulse Rate Respiratory Rate Blood Pressure 108/65 123/83 Pulse Oximetry 100 100 100 10/20/20 18:15 10/20/20 18:30 10/20/20 18:49 Temperature Pulse Rate 77 Respiratory Rate 16 Blood Pressure 115/61 Pulse Oximetry 100 100 98 10/20/20 20:00 10/20/20 20:55 10/21/20 00:00 Temperature 36.5 C Pulse Rate 78 82 62 Respiratory Rate 18 Blood Pressure 101/80 Pulse Oximetry 100
--- NOTE | 2020-10-21 12:54 | WPDNEURCNPN ---
Assessment and Plan Additional Plan only expressive aphasia with normal MRI of the brain normal CTA of the brain additionally, a small thyroid nodules on ultrasound normal x-ray of the right elbow MRI of the cervical spine normal except the low-lying cerebellar tonsil but not meeting the criteria of AC malformation. Will recommend speech therapy Consult date: 10/21/20 Time Seen: 12:30 HPI: Bethany Dacosta is a 35 year old femaleAdmitted to the hospital for the complaints of numbness and tingling sensation to the right side of her face and right side of her body patient had seen her primary care physician and was placed on gabapentin she has been experiencing these symptoms on and off for the last several weeks and also has not taken her gabapentin at least for 48 hours prior to these particular hospitalization. Patient came to the ER for the complaints of expressive aphasia with right-sided weakness initial CT scan in the emergency room was negative psoas the CTA without evidence of any aneurysm patient was started on Plavix and aspirin continued to have expressive aphasia and has been communicating by texting on her phone with 1 hand or answering yes and no questions. In the past patient has ongoing history of chronic headaches, complex posttraumatic stress disorder, no history of smoking and history of taking alcohol only rarely but no substance abuse medication at the time of admission included gabapentin as mentioned above in addition to the multi vitamins and she has been reportedly allergic to adhesive tape latex hydrocodone morphine and Tyler no Review of Systems Review of Systems: All systems reviewed & are unremarkable except as noted in HPI and below PMFSH Past Medical History Medical History Chronic headaches Complex posttraumatic stress disorder Thyroid enlargement Surgical History Surgical History H/O dilation and curettage Family History Family History Grandparent Diabetes mellitus Breast cancer Father Neuropathy Mother Neuropathy Family history unknown Social History Social History Social History: and the is the durable poa. She is a full code. She has one child. 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 The patient occasionally drinks alcohol socially. She is a lifelong nonsmoker. No marijuana or illicit drugs. Smoking status: Never smoker Second hand tobacco smoke exposure: No Alcohol intake: current Alcohol use details: Rarely Substance use: never Substance use type: does not use Gender identity (if verbalized by the patient): Female Sexual Orientation (if Verbalized by the Patient): Straight or Heterosexual Spiritual care concerns: No Meds Home Medications and Allergies Home Medications Medication Instructions Recorded Confirmed Type mecobalamin (vitamin B12) [B12 2,000 mcg PO DAILY 10/03/20 10/20/20 History Active] gabapentin 100 mg capsule 100 mg PO TID PRN #90 cap 10/05/20 10/20/20 Rx fqosnzosxpva-jvjl-xzifc acid 1 tablet PO DAILY 10/20/20 10/20/20 History [Centrum Women] Allergies Allergy/AdvReac Type Severity Reaction Status Date / Time adhesive Allergy Intermediate RASH Verified 10/05/20 16:01 latex Allergy Intermediate RASH Verified 10/05/20 16:01 hydrocodone Allergy Unknown Itching Verified 10/05/20 16:01 morphine Allergy Unknown Siezure Verified 10/05/20 16:01 phenol Allergy Unknown Swelling Verified 10/05/20 16:01 Vital Signs Vital Signs - 24 hr 10/20/20 14:52 10/20/20 15:06 10/20/20 15:07 Temperature 38.3 C H Pulse Rate 18 L 80 96 Respiratory Rate 20 20 15 Blood Pressure 155/79 H 145/91 H Pulse Oximetry 100 100 96 10/20/20 15:34 10/20/20 15:45 10/20/20 16:00 Temperature Pulse Rat
[2020-10-21] MEDS: PERFLUTREN LIPID MICROSPHERES 1.5 ML VIAL DILUTED TO 10 ML TOTAL VOLUME IV PUSH (14:20)
[2020-10-21] MEDS: ASPIRIN 325 MG ENTERIC TABLET PO (15:00)
[2020-10-21] MEDS: MULTIVITAMINS /C LUTEIN (CENTRUM SILVER) TABLET *BKC 1 TAB PO (15:01)
[2020-10-21] MEDS: CLOPIDOGREL BISULFATE 75 MG TABLET PO (15:01)
[2020-10-22] VITALS (8 sets, daily range): BP systolic 99–107; BP diastolic 54–63; PULSE 69–87; RESP 16–18; TEMP 36–36.8; O2SAT 97–98
--- NOTE | 2020-10-22 02:54 | PC.NURSE ---
10/21/20 @ 2100. Assessed pt while lying in bed. 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 She was unable to squeeze my hand. I asked her to push her feet against my hands and she had weak push with her right foot. Was not able to raise her right leg. She is non-verbal. She has not tried to speak. She texts on her phone what she wants to say and it translates what she is wanting to say. She has made no audible sounds for me. She then asked me to assist her to the [facility] I did notice she did grab the handles with both hands to the [facility] and pulled her underwear down using both hands. I handed her the toilet paper roll and she used her right hand to gather the toilet paper and wipe herself. She also pushed her self off bedside commode using both hands and stood up. Used both hands and pulled her underwear up. She also begin using both hands holding her phone texting what she wants to tell me. She did walk to [facility] with a limp but was able to bear weight on both legs and make steps to commode and back to bed. She did not need any assistance lifting legs back into the bed. She did all that on her own.
--- NOTE | 2020-10-22 06:18 | PC.NURSE ---
Patient just put on her call light. Our HEAT TREAT INSPECTOR Priyanka Chaves Used call light and asked her how can I help you. Patient stated, Yes, my machine is beeping in here. When Priyanka went into the room patient was non-verbal using hand gestures pointing to her SCD's and did a thumbs up.
[2020-10-22] MEDS: ASPIRIN 325 MG ENTERIC TABLET PO (08:15)
[2020-10-22] MEDS: MULTIVITAMINS /C LUTEIN (CENTRUM SILVER) TABLET *BKC 1 TAB PO (08:15)
[2020-10-22] MEDS: CLOPIDOGREL BISULFATE 75 MG TABLET PO (08:16)
--- NOTE | 2020-10-22 08:58 | PM.DS ---
DS: Admitting Diagnosis Admitting Diagnosis right sided weakness DS: Discharge Diagnosis Discharge Diagnosis (1) Acute right-sided weakness: Code(s): R53.1 - Weakness Status: Acute Assessment and Plan: Neurology consulted CTA normal salud; no aneurysm or significant intracranial arterial stenosis of brain MRI showed normal brain PT/OT ST Barium swallow normal Continue Plavix and aspirin (2) Thyroid enlargement: Code(s): E04.9 - Nontoxic goiter, unspecified Status: Acute Assessment and Plan: US-->Small thyroid nodule, likely not clinically significant. No follow-up is needed (3) Occipital neuralgia: Code(s): M54.81 - Occipital neuralgia Status: Acute Assessment and Plan: Continue gabapentin DS: Summary Hospital Course Hospital Course: Bethany Manuel is a 35 year old lady with a PMH chronic headaches and PTSD. She was admitted after presented to the ED with complaints of expressive aphasia for 1 day; associated with numbness and tingling to the right side of her face and right side of her body intermittently for 3 weeks. She was seen by her primary care doctor for numbness and tingling. CTA brain was showed normal brain no aneurysm or significant intracranial arterial stenosis.Plavix and asa were initiated; neurology was consulted. The patient was admitted to observation services on 10/20/20. She underwent MRI which showed normal brain. She was evaluated by PT, OT and speech therapy. Neurology recommends to continue on an outpatient basis. Today she is feeling stronger and is stable for discharge. She has been advised to keep her scheduled appointment with a neurologist. Speech therapy feel that she may benefit from an evaluation by ENT. Time Spent with Patient Time attestation: Total time spent providing and/or coordinating discharge services: Exam Const: General: no acute distress, alert and awake Orientation/consciousness: patient oriented x3 HENMT: Head: normocephalic and atraumatic Ears: hearing grossly normal bilaterally and external ears normal Face and sinus: face symmetric Mouth: Yes Normal oral and palatal mucosa present Eyes: Pupils: Equal, round and reactive pupils present EOM: EOMs intact bilaterally Neck: Neck: full ROM, trachea midline and no JVD Thyroid: thyroid normal Chest: Chest palpation & inspection: normal inspection of the chest Resp: Effort & Inspection: normal respiratory effort Auscultation: clear to auscultation bilaterally Cardio: Jugular venous distension: no JVD Rate: regular rate Rhythm: regular rhythm Heart sounds: S1 normal heart sound present and S2 normal heart sound present GI: Inspection: normal to inspection Auscultation: normal bowel sounds : General: Yes no CVA tenderness Back/Spine/Pelvis: Back: no CVA tenderness Skin: General skin exam: normal color Rashes: no rashes Neuro: General: patient oriented x3 Cranial nerves: Yes Equal, round and reactive pupils present Cognition (Neuro): normal cognition Speech: aphasia and Expressive aphasia present Motor exam (neuro): Pronator motor function present pronator drift of right upper extremity Other: BLE weakness Psych: Appearance: grossly normal Affect: normal affect Judgement: Good judgement present (Psych) Discharge Plan Discharge Attending physician on discharge: Charlene Kumar Consulting providers: Arash Eng Discharging Clinician: Krystyna Sarmiento Patient Disposition: Home, Self-Care Activity: as tolerated Diet: heart healthy Discharge Instructions: per care coordination, pt. to have outpatient PT/OT/ST evaluations and treatment. keep scheduled appointment with neurology consider ENT consult outpatient Patient Instructions: Antibiotic Form Stand Alone Forms: General Discharge Information Follow-up/Referrals: Azar Damico [Other] - Keep Reg. Scheduled Appt. Lisa Pires MD [Primary Care Provi
== END 2020-10-22 16:40 | disposition home or self-care (01) ==
LOC: ANHED 17:26 → ANH2MED 10-21 14:03
PROVIDERS: Emergency Medicine; Nurse Practitioner; Admitting Provider Internal Medicine; Emergency Provider Emergency Medicine; PCP Family Medicine; Visit Provider Internal Medicine Nephrology
DX: G81.91 Hemiplegia, unspecified affecting right dominant side (principal); R47.01 Aphasia; E04.9 Nontoxic goiter, unspecified; M54.81 Occipital neuralgia
CPT/HCPCS: 36415; 70496; 70498; 70553; 76536; 80048; 80053; 83735; 84443; 84484; 85025; 85610; 85730; 92507; 92523; 92611; 93005; 93308; 96361; 96374; 97110; 97116; 97161; 97166; 97530; 97535; 99285; A9270; A9577; G0378; J7120; Q9957; Q9967

== ENCOUNTER 2020-11-08 12:24 | Outpatient (CLI) | payer BC, SELFPAY ==
--- NOTE | ~2020-11-08 | MR_ITS ---
EXAMINATION: MR cervical spine wo/w con EXAM DATE: 11/08/2020 13:46 INDICATION: G81.01 - Flaccid hemiplegia affecting right dominant side. TECHNIQUE: Multi-sequential, multiplanar MR images of the cervical spine were obtained without contra st. Axial T2, axial T2 MERGE sequence. Sagittal T1, T2, T2 fat saturation images also obtained. Axi al T1 weighted sequence. Patient was then injected with 16 mL Multihance intravenous contrast and re imaged. Postcontrast axial and sagittal T1-weighted fat saturation sequences were obtained. Compari son is made to prior examination from 05/31/2020. FINDINGS: Mildly low-lying cerebellar tonsils not meeting criteria for Chiari I malformation. The v ertebral bodies are aligned in the AP dimension. Vertebral body and disc heights are well-maintained. There are no suspicious marrow signal abnormalities. The spinal cord signal intensity and intrinsic morphology is normal. There are no areas of abnormal enhancement on the post contrast images. Level by level evaluation: C2-C3: Disc does not extend beyond the endplate margin. Uncovertebral joint arthropathy: None. Facet joint arthropathy: Mild bilateral. Neural foraminal stenosis: No stenosis. Central canal stenosis: No stenosis. C3-C4: Disc does not extend beyond the endplate margin. Uncovertebral joint arthropathy: Minimal bilateral. Facet joint arthropathy: Mild bilateral. Neural foraminal stenosis: No stenosis. Central canal stenosis: No stenosis. C4-C5: Disc does not extend beyond the endplate margin. Uncovertebral joint arthropathy: Minimal bilateral. Facet joint arthropathy: Mild bilateral. Neural foraminal stenosis: No stenosis. Central canal stenosis: No stenosis. C5-C6: Disc does not extend beyond the endplate margin. Uncovertebral joint arthropathy: Mild bilateral. Facet joint arthropathy: Mild bilateral. Neural foraminal stenosis: No stenosis. Central canal stenosis: No stenosis. C6-C7: Disc does not extend beyond the endplate margin. Uncovertebral joint arthropathy: Mild left. Facet joint arthropathy: Mild bilateral. Neural foraminal stenosis: No stenosis. Central canal stenosis: No stenosis. C7-T1: Disc does not extend beyond the endplate margin. Uncovertebral joint arthropathy: None. Facet joint arthropathy: Mild bilateral. Neural foraminal stenosis: No stenosis. Central canal stenosis: No stenosis. IMPRESSION: 1. Mild cervical arthropathy. 2. Mildly low-lying cerebellar tonsils. 3. No appreciable interval change. Reviewed, dictated and finalized at location B.
== END 2020-11-08 12:25 | disposition home or self-care (01) ==
PROVIDERS: PCP Family Medicine; Visit Provider Family Medicine
DX: G81.01 Flaccid hemiplegia affecting right dominant side (principal); M47.812 Spondylosis without myelopathy or radiculopathy, cervical region
CPT/HCPCS: 72156; A9577

== ENCOUNTER 2021-01-12 13:37 | Emergency (ER) | payer BC, SELFPAY ==
[2021-01-12] VITALS (21 sets, daily range): BP systolic 110–119; BP diastolic 69–82; PULSE 70–79; RESP 12–23; TEMP 36.4; O2SAT 99–100
--- NOTE | 2021-01-12 13:47 | ECG_ITS ---
Measurements Intervals [place] Rate: 74 P: 59 SD: 139 QRS: 53 QRSD: 98 T: 36 QT: 410 QTc: 456 Interpretive Statements SINUS RHYTHM INCOMPLETE RIGHT BUNDLE BRANCH BLOCK BORDERLINE ECG Electronically Signed On 01-12-2021 14:10:26 [employer] by Damir Balderas D.O.
[2021-01-12 15:17] LABS: Basophils Percent Auto 0.3 % (0.2-1.2); Eosinophils Absolute Auto 0.1 K/mm3 (0-0.3); Eosinophils Percent Auto 1.1 % (0-4.4); Hematocrit 35.3 % (37.0-47.0); Hemoglobin 11.7 g/dL (12.0-15.0); Immature Granulocyte Absolute 0.03 K/mm3 (0.00-0.031); Immature Granulocyte Percent A 0.4 % (0-0.5); Lymphocytes Absolute Auto 1.55 K/mm3 (0.9-3.2); Lymphocytes Percent Auto 20.5 % (18.3-44.2); Mean Corpuscular HGB Conc 33.1 g/dl (32-36); Mean Corpuscular Hemoglobin 30.4 pg (26-34); Mean Corpuscular Volume 91.7 fl (80-100); Mean Platelet Volume 10.5 fl (7.4-10.4); Monocytes Absolute Auto 0.5 K/mm3 (0.1-0.6); Monocytes Percent Auto 6.3 % (2.6-8.5); Neutrophils Absolute Auto 5.4 K/mm3 (1.3-6.7); Neutrophils Percent Auto 71.4 % (45.5-73.1); Platelet Count Result 223 k/mm3 (150-375); Red Blood Count 3.85 M/mm3 (4.2-5.4); Red Cell Distribution Width 12.8 % (11.5-14.5); White Blood Count 7.6 K/mm3 (4.5-10.0)
[2021-01-12 15:31] LABS: INR 1.1
[2021-01-12 15:33] LABS: Partial Thromboplastin Time 33.1 SECONDS (22.3-36.8)
[2021-01-12 15:34] LABS: Alanine Aminotransferase 11 U/L (4-35); Albumin Level 4.2 g/dL (3.5-5.1); Alkaline Phosphatase 48 U/L (38-126); Anion Gap 6 mmol/L (8-16); Aspartate Amino Transferase 19 U/L (14-36); Bilirubin,Total 0.3 mg/dL (0.2-1.3); Blood Urea Nitrogen 11 mg/dL (7-17); Calcium 8.9 mg/dL (8.4-10.2); Carbon Dioxide 26 mmol/L (22-30); Chloride 104 mmol/L (98-107); Estimated CRCL calculation 86 ml/min; Estimated Glomerular Filt Rate > 60; Glucose 116 mg/dL (65-110); Sodium 136 mmol/L (137-145)
[2021-01-12 15:40] LABS: Add Urine Microscopic? YES; Appearance Urine Cloudy (Clear); Bacteria Urine Trace /hpf; Bilirubin Urine Negative (Negative); Blood Urine 2+ (Negative); Color Urine Straw (Yellow); Glucose Urine UA Negative (Negative); Ketones Urine Negative (Negative); Leukocyte Esterase Ur Trace LEU/UL (Negative); Mucus Urine Rare /lpf; Nitrate Urine Negative (Negative); Protein Urine Negative (Negative); RBC Urine 0-2 /hpf (0-2); Specific Grav Ur 1.005 (1.001-1.035); Squamous Epithelial Cell Urine Few /hpf (Few); Urobilinogen Urine Negative mg/dL (<2.0)
[2021-01-12 15:46] LABS: Troponin I < 0.012 ng/mL (0.000-0.034)
--- NOTE | 2021-01-12 16:10 | ED.GENADULT ---
HPI - General Adult General Chief complaint: Chest Pain Stated complaint: rt side numb Time Seen by Provider: 01/12/21 13:41 History of Present Illness HPI narrative: Patient is a 35-year-old female who presents ER with reports of right-sided electrical pains in her right arm and heaviness in the arm and leg on the right side as well. This is benign issue for her over the last 5 months. She has seen neurology here and has also been seen by Dr. Whitley at [facility] in [place]. She has had a negative MRI of the brain and cervical spine. There is no evidence of stroke or demyelinating lesion. Patient denies any new stress today and that she is on her phone call for work when this occurred. Patient also reports electrical pains went into her chest. She cannot identify any alleviating factors. Related Data Home Medications Medication Instructions Recorded Confirmed B12 Active 2,000 mcg PO DAILY 10/03/20 11/18/20 Centrum Women 1 tablet PO DAILY 10/20/20 11/18/20 Allergies Allergy/AdvReac Type Severity Reaction Status Date / Time adhesive Allergy Intermediate RASH Verified 11/18/20 13:33 latex Allergy Intermediate RASH Verified 11/18/20 13:33 hydrocodone Allergy Unknown Itching Verified 11/18/20 13:33 morphine Allergy Unknown Siezure Verified 11/18/20 13:33 phenol Allergy Unknown Swelling Verified 11/18/20 13:33 Review of Systems Review of Systems: All systems reviewed & are unremarkable except as noted in HPI and below Constitutional: Constitutional: Denies chills, Denies fever(s) and Denies weakness ENT: Denies nasal congestion and Denies sore throat Cardiovascular: Cardiovascular: Reports chest pain, Denies rapid heart rate and Denies radiating jaw, neck or arm pain Respiratory: Respiratory: Denies cough, Denies dyspnea and Denies wheezing Gastrointestinal: Gastrointestinal: Denies abdominal pain, Denies nausea and Denies vomiting Musculoskeletal: Musculoskeletal: Denies arthralgias and Denies joint swelling Neurologic: Denies syncope, Denies headache(s) and Reports numbness Comments: Right-sided heaviness PMFSH Past Medical History Medical History Chronic headaches Complex posttraumatic stress disorder Thyroid enlargement Surgical History Surgical History H/O dilation and curettage Family History Family History Grandparent Diabetes mellitus Breast cancer Father Neuropathy Mother Neuropathy Family history unknown Social History Social History (Updated 11/18/20 @ 13:38 by Lisa Dupont) Social History: and the is the durable poa. She is a full code. She has one child. 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 The patient occasionally drinks alcohol socially. She is a lifelong nonsmoker. No marijuana or illicit drugs. Smoking status: Never smoker Second hand tobacco smoke exposure: No Alcohol intake: current Alcohol use details: Rarely Substance use: never Substance use type: does not use Additional occupation/education comments: Pt is on Short Term Disability Gender identity (if verbalized by the patient): Female Sexual Orientation (if Verbalized by the Patient): Straight or Heterosexual Spiritual care concerns: No Exam Narrative: GENERAL lying in bed with eyes closed and whispering answers when history is taken, well-nourished, and in no acute distress. HEAD: Normocephalic, atraumatic. EYES: PERRL and EOMI. ENT: Mucous membranes moist. No facial droop or asymmetry. CHEST: Clear to auscultation. No respiratory distress. HEART: Regular rate and rhythm. Normal peripheral pulses. ABDOMEN: Soft, nontender, nondistended EXTREMITIES: Normal range of motion. No edema. No upper or lower extremity drift. 5/5 strength in extremities when pressure applied during testing.
== END 2021-01-12 16:50 | disposition home or self-care (01) ==
PROVIDERS: Emergency Provider Emergency Medicine; PCP Family Medicine
DX: R20.2 Paresthesia of skin (principal)
CPT/HCPCS: 36415; 80053; 81001; 84484; 85025; 85610; 85730; 93005; 99284

== ENCOUNTER 2021-09-09 07:01 | Emergency (ER) | payer BC, SELFPAY ==
--- NOTE | ~2021-09-09 | CT_ITS ---
EXAMINATION: CT abdomen pelvis wo con DATE: 09/09/2021 08:09 INDICATION: Gross hematuria, dysuria, nausea. Pelvic and vaginal pain. TECHNIQUE: Computed tomography (CT) of the abdomen and pelvis was performed without intravenous contr ast. Automated exposure control and iterative reconstruction technique were employed. Exam dose: 779 .05 mGy-cm total exam DLP. COMPARISON: 11/13/2014 Limited abdominal ultrasound examination 08/12/2013 pelvic ultrasound 08/12/2013 CT abdomen pelvis FINDINGS: The lung bases are clear of infiltrate or consolidation. Normal heart size. No pericardial or pleural effusion. The liver, gallbladder, bile ducts, pancreas, pancreatic duct, spleen, and adrenal glands and kidneys are unremarkable on this limited noncontrast examination. There is a stable splenule in the left upp er quadrant. No urinary tract calculus or hydroureter or hydroureteronephrosis. Normal caliber of the abdominal aorta. No intraperitoneal or retroperitoneal or pelvic mass lesion or adenopathy or ascites is noted. There is mild to moderate free fluid in the dependent pelvis. Uterus and adnexal areas and urinary bladder are unremarkable. Normal appendix. No bowel obstruction, bowel wall thickening, pneumatosis or intraperitoneal free air . 1.7 cm wide 2.6 cm deep right periumbilical fat-containing hernia. 8.5 mm and 6 mm osteosclerotic lesions of the right ilium and 6 mm osteosclerotic lesion of the left ilium. Consider radionuclide bone scan. No suspicious osteolytic or osteosclerotic lesions are noted elsewhere. IMPRESSION: 2 right and one left nonspecific osteosclerotic lesions of the ilium; consider radionucli de bone scan Mild to moderate nonspecific free fluid in the dependent pelvis No urinary tract calculus or hydroureteronephrosis or urinary tract mass lesion is evident on this li mited noncontrast examination Reviewed, dictated and finalized at Location A. Reviewed, dictated and finalized at location A. IMPRESSION: 2 right and one left nonspecific osteosclerotic lesions of the iliu m; consider radionuclide bone scan Mild to moderate nonspecific free fluid in the dependent pelvis No urinary tract calculus or hydroureteronephrosis or urinary tract mass lesion is evident on this limited noncontrast examination
[2021-09-09 07:16] VITALS: BP 115/80; PULSE 97; RESP 20; O2SAT 100
--- NOTE | 2021-09-09 07:24 | ED.GENADULT ---
HPI - General Adult General Chief complaint: Urogenital-Female Stated complaint: uti and possible rectal bleeding Time Seen by Provider: 09/09/21 07:10 History of Present Illness HPI narrative: 36-year-old female with history of conversion disorder presenting to the emergency department for evaluation of hematuria. Patient states yesterday evening she began developing some burning with urination and this morning she noticed that she did have some blood-tinged urine. Patient does report some lower abdominal cramping but denies any flank pain. Patient does report a history of kidney infections but denies any prior history of kidney stones. Patient does not take any blood thinners. Related Data Home Medications Medication Instructions Recorded Confirmed mecobalamin (vitamin B12) 1,000 2,000 mcg PO DAILY 10/03/20 01/13/21 mcg chewable tablet (B12 Active) multivitamin-ferrous 1 tablet PO DAILY 10/20/20 01/13/21 fumarate-folic acid 18 mg-400 mcg tablet (Centrum Women) Allergies Allergy/AdvReac Type Severity Reaction Status Date / Time adhesive Allergy Intermediate RASH Verified 09/09/21 07:23 latex Allergy Intermediate RASH Verified 09/09/21 07:23 hydrocodone Allergy Unknown Itching Verified 09/09/21 07:23 morphine Allergy Unknown Siezure Verified 09/09/21 07:23 phenol Allergy Unknown Swelling Verified 09/09/21 07:23 Review of Systems Review of Systems: CONSTITUTIONAL: Denies fever, chills, or sweats. EYES: Denies visual changes, redness, or discharge. ENT: Denies rhinorrhea, congestion, sore throat, or otalgia. CARDIOVASCULAR: Denies chest pain, palpitations, or edema. RESPIRATORY: Denies cough or dyspnea. GASTROINTESTINAL: Suprapubic abdominal pain GENITOURINARY: See HPI SKIN: Denies rash or itching. MUSCULOSKELETAL: Denies back pain, joint pain, or myalgia. NEUROLOGIC: Denies headache, numbness, or weakness. PSYCHIATRIC: Denies anxiety or depression. [facility] Past Medical History Medical History Chronic headaches Complex posttraumatic stress disorder Thyroid enlargement Surgical History Surgical History H/O dilation and curettage Family History Family History Grandparent Diabetes mellitus Breast cancer Father Neuropathy Mother Neuropathy Family history unknown Social History Social History (Updated 01/13/21 @ 16:08 by Lisa Dupont) Social History: and the is the durable poa. She is a full code. She has one child. 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 The patient occasionally drinks alcohol socially. She is a lifelong nonsmoker. No marijuana or illicit drugs. Smoking status: Never smoker Second hand tobacco smoke exposure: No Alcohol intake: current Alcohol use details: Rarely Substance use: never Substance use type: does not use Additional occupation/education comments: Pt is on Short Term Disability Gender identity (if verbalized by the patient): Female Sexual Orientation (if Verbalized by the Patient): Straight or Heterosexual Spiritual care concerns: No Exam Narrative: APPEARANCE: Well appearing, no pain, no distress, well-nourished. HEAD: normocephalic, atraumatic. EYES: PERRLA/EOMI, conjunctivae clear. NOSE: Normal no drainage THROAT: Pharynx clear, no exudate. NECK: Supple. No adenopathy, no masses. RESPIRATORY: Airway patent, respirations nonlabored. Clear to auscultation bilaterally, no rales, rhonchi, wheezing. CARDIOVASCULAR: Regular rate and rhythm without murmurs rubs or gallops. ABDOMINAL: Suprapubic tenderness to palpation, no flank pain or tenderness. MUSCULOSKELETAL: Moves all extremities. Strength/ROM intact, No edema, No calf tenderness. NEURO: Alert. Cranial nerves II through XII intact. Grossly intact SKIN: Warm, dry. Normal Color Cou
[2021-09-09] MEDS: PHENAZOPYRIDINE HCL 100 MG TABLET 200 MG PO (07:36)
[2021-09-09 07:40] LABS: Add Urine Microscopic? YES; Appearance Urine Turbid (Clear); Bilirubin Urine 3+ (Negative); Blood Urine 3+ (Negative); Color Urine Red (Yellow); Glucose Urine UA Trace mg/dL (Negative); Ketones Urine 1+ mg/dL (Negative); Leukocyte Esterase Ur 3+ LEU/UL (Negative); Nitrate Urine Positive (Negative); Protein Urine 3+ mg/dL (Negative); pH Urine 6.5 (5.0-9.0)
[2021-09-09 07:45] LABS: RBC Urine >75 /hpf (0-2)
--- NOTE | 2021-09-09 08:04 | PC.NURSE ---
Patient off unit to CT.
[2021-09-09 10:27] VITALS: BP 101/75; PULSE 76; RESP 16; O2SAT 100
== END 2021-09-09 10:31 | disposition home or self-care (01) ==
PROVIDERS: Emergency Provider Emergency Medicine; PCP Family Medicine
DX: N39.0 Urinary tract infection, site not specified (principal); E04.9 Nontoxic goiter, unspecified; M89.9 Disorder of bone, unspecified; Z79.82 Long term (current) use of aspirin; F43.10 Post-traumatic stress disorder, unspecified
CPT/HCPCS: 74176; 81001; 81025; 87077; 87086; 87186; 96365; 99284; A9270; J0696

== ENCOUNTER 2022-08-15 09:20 | Outpatient (CLI) | payer BC, SELFPAY ==
[2022-09-04 13:07] VITALS: BMI 30.7
--- NOTE | 2022-09-04 13:07 | WPDSLEEPSTUD ---
Sleep Study Date of Study: 08/15/22 Ordering Provider: Dianna Ruelas MD Interpreting Physician: Rula Johnston DO Sleep Study Type: Polysomnogram Height: 1.68 m Weight: 86.183 kg Body Mass Index: 30.7 Neck Circumference (inches): 15 [place]: 0 Reason for Sleep Study Daytime hypersomnia Sleep History The patient is a 37-year-old female with chronic headaches, complex PTSD, thyroid enlargement, anxiety and functional neurological disorder that had a sleep study ordered by her vice president of marketing for evaluation of daytime hypersomnia. The patient denies awakening from sleep short of breath. She denies awakening at night with heartburn, belching or cough. He rarely snores. She denies having trouble sleeping when she has a cold. She denies waking up gasping for air throughout the night. She denies having breathing problems at night observed by herself or others. She constantly sweats excessively at night. She denies having heart palpitations or irregular heartbeats during the night. She frequently falls asleep during the day but never while driving. She occasionally falls asleep during physical effort. She denies having trouble at school or work due to sleepiness. She frequently feels unable to move while waking up or falling asleep. She frequently experiences vivid dreamlike scenes upon awakening or falling asleep. She occasionally feels afraid to fall asleep. She constantly has nightmares and frequently remembers her dreams. She frequently has thoughts racing through her mind. She rarely feels sad or depressed. She rarely has muscular tension. She rarely notices parts of her body jerk. She denies kicking during the night. She denies having crawling and aching feelings in her legs and occasionally has leg pain during the night. The patient denies grinding her teeth during sleep denies having morning jaw pain. She is frequently bothered by pain during the day but never awakened by pain during the night. He rarely wakes up feeling stiff in morning. She denies waking up with sore achy muscles. She denies waking up with pain in the neck, spine or other joints. The patient goes to bed between 9:30-10:30 a.m. on both weekdays and weekends. It takes her 10-20 minutes to fall asleep. She wakes up once throughout the night to use the restroom and is able to fall back asleep within 5 minutes. She wakes up at 7:00 a.m. on both weekdays and weekends. She typically gets 8-10 hours of sleep per night. She will stay in bed for at least 5 minutes after waking up in the morning. She currently lives with her and 9-year-old child. She does not consume any caffeinated beverages within 2 hours of bedtime. She denies engaging in physical exercise before bedtime. She will read before falling asleep. She denies watching television before falling asleep. She denies taking naps in the afternoon or the evening. She consumes 1-2 cups of coffee per day. She has 1-2 alcoholic beverages per month. She denies tobacco and recreational drug use. [facility] Past Medical History Medical History (Updated 09/04/22 @ 14:19 by Rula Johnston DO) Abdominal bloating Chronic headaches Complex posttraumatic stress disorder JONO (obstructive sleep apnea) Paresthesia of skin Thyroid enlargement Surgical History Surgical History H/O dilation and curettage Family History Family History Grandparent Diabetes mellitus Breast cancer Father Neuropathy Mother Neuropathy Family history unknown Social History Social History Social History: and the is the durable poa. She is a full code. She has one child. 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 The patient occasionally drinks alcohol socially. She is a lifelong nonsmoker.
--- NOTE | 2022-09-04 14:32 | WPDSLEEPSTUD ---
Sleep Study Date of Study: 08/15/22 Ordering Provider: Dianna Ruelas MD Interpreting Physician: Rula Johnston DO Sleep Study Type: Multiple Sleep Latency Test Height: 1.68 m Weight: 86.183 kg Body Mass Index: 30.7 Neck Circumference (inches): 15 [place]: 0 Reason for Sleep Study Excessive daytime sleepiness Sleep History Please see sleep history on PSG report from the previous night. [facility] Past Medical History Medical History Abdominal bloating Chronic headaches Complex posttraumatic stress disorder JONO (obstructive sleep apnea) Paresthesia of skin Thyroid enlargement Surgical History Surgical History H/O dilation and curettage Family History Family History Grandparent Diabetes mellitus Breast cancer Father Neuropathy Mother Neuropathy Family history unknown Social History Social History Social History: and the is the durable poa. She is a full code. She has one child. 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 The patient occasionally drinks alcohol socially. She is a lifelong nonsmoker. No marijuana or illicit drugs. Smoking status: Never smoker Second hand tobacco smoke exposure: No Alcohol intake: current Alcohol use details: Rarely Substance use: never Substance use type: does not use Lack of Transportation: No Lack of Food: Never True Current Housing: I Have Housing Concerned About Future Housing: No Difficulty Paying Gas/Electric Bills: No Difficulty Paying for Meds: No Currently Unemployed: No Education: Decline to Answer Difficulty w/ Childcare or Family Care: No Living arrangements: with family Occupation/Education: occupation Gender identity (if verbalized by the patient): Female Sexual Orientation (if Verbalized by the Patient): Straight or Heterosexual Spiritual care concerns: No Medications Home Medications Medication Instructions Recorded Confirmed Type multivitamin-ferrous 1 tablet PO DAILY 10/20/20 08/21/22 History fumarate-folic acid 18 mg-400 mcg tablet (Centrum Women) modafinil 200 mg tablet 100 mg PO QAM 06/25/22 08/21/22 History clindamycin phosphate 1 % lotion 1 applic topical BID #120 mL 08/21/22 08/21/22 Rx (Cleocin T) venlafaxine 37.5 mg tablet 37.5 mg PO BID #60 tabs 08/21/22 08/21/22 Rx Sleep Procedure The recording montage for the MSLT includes central EEG (C3-A2, C4-A1) and occipital (O1-A2, O2-A1) derivations, left and right eye electrooculograms (EOGs), mental/submental electromyogram (EMG), and electrocardiogram (EKG). Nap 1 commenced at 07:26 am. Sleep latency was 3 minutes. There was no sleep-onset REM. Nap 1 was terminated at 7:45 a.m. The patient said that sleep occurred/did not occur. The patient reported dreaming. Nap 2 commenced at 09:24 am. Sleep latency was 8.5 minutes. Sleep onset REM occurred at 12 minutes. Nap 2 was terminated at 09:48 am. The patient said that sleep did not occur. Nap 3 commenced at 11:23 am. Sleep latency was 10.5 minutes. Sleep onset REM did not occur. Nap 3 was terminated at 11:49 am. The patient said that sleep occurred. The patient reported dreaming. Nap 4 commenced at 01:19 pm. Sleep latency was 9.9 minutes. Sleep onset REM did not occur. Nap 4 was terminated at 01:45 pm. The patient said that sleep occurred. The patient did not report dreaming. Nap 5 commenced at 03:21 pm. Sleep latency was 10 minutes. Sleep onset REM did not occur. Nap 5 was terminated at 03:46 pm. The patient said that sleep occurred. The patient reported dreaming. The mean sleep latency is 8.4 minutes. The patient slept on 5 naps. The patient perceived sleep on 4 naps and slept on 5 of 5 nap opportuniti
[2022-09-04 15:25] VITALS: BMI 30.7
== END 2022-08-16 16:08 | disposition home or self-care (01) ==
LOC: ANHCSM 09:21
PROVIDERS: PCP Family Medicine; Visit Provider Internal Medicine Critical Care Medicine
DX: G47.10 Hypersomnia, unspecified (principal); G47.19 Other hypersomnia; G47.33 Obstructive sleep apnea (adult) (pediatric)
CPT/HCPCS: 95805; 95810

== ENCOUNTER 2024-05-19 07:49 | Outpatient (CLI) | payer BC, OTHER, SELFPAY ==
--- OUTSIDE RECORDS SUMMARY | 2024-05-19 07:54 | XMS_ITS | Data Portability ---
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 Plan of Treatment Reminders Order Date Submit Date Provider Last Modified By Organization Details Last Modified Time Details Appointments None recorded. Lab CMP, serum or plasma 2016 017 [facility], [address] [place] [address], [facility] [address], [place], [address], 7 09:14:26 lipid panel, serum 2016 017 [facility], [address] [place] [address], [place] [address], [place], [address], 7 09:14:25 RPR (rapid plasma reagin), serum 2016 017 [facility], [address] [place] [address], [facility] [address], [place], [address], 7 09:14:27 hepatitis panel (A+B+C), acute, serum 2016 017 [facility], [address] [place] [address], [facility] [address], [place], [address], 7 09:14:27 HIV 1+2 AB + HIV 1 p24 Ag, qualitative immunoassay , serum 2016 017 [facility], [address], [address], [place], [address], 7 09:14:27 CT + NG + TV, DNA, urine/swab 2016 017 [facility], [address], [address], [place], [address], 7 09:14:27 urinalysis, dipstick 2015 016 In-Office Order, Internal Use Only DO Not Attach Compendium DO Not Attach Compendium, Do Not Delete/merge, [id number] 6 04:29:55 Referral None recorded. Procedures None recorded. Surgeries None recorded. Imaging None recorded. Medication Orders bupropion HCl 150 mg tablet,12 hr sustained-r elease(smok ing deterrent) 2015 016 [email or web address] Not available 6 12:20:05 Patient TargetsNo targets recorded. Patient Instructions Encounter Date Encounter Id Patient Instructions Last Modified By Organization Details Last Modified Time 12/21/2015 [id number] Will sign ORLIN from Gabriel Ewing at [facility] in [place] - last 2 office notes and recent labs Will sign ORLIN for last pap smear and labs from Charity Wolf at [facility] Patient currently does not have insurance - will do annual visit for OBGYN and IM together d/t cost annually in July - she is switching to [facility] for both [facility] and IM d/t cost eewig Not available 12/21/2015 18:20:39 Reason for Referral None Reported. Results Created Date Observation Date Name Description Value Unit Range Abnormal Flag Note LastModifiedBy Organization Detail LastModifiedTime 12/21/19 16 12/21/2015 urina lysis , dipst ick Leukocytes Trace Not Available In-Offi ce Order Internal Use Only DO Not Attach Compendium DO Not Attach Compendium, Do Not Delete/merge, [id number] 12/21/2015 15:31:47 12/21/19 16 12/21/2015 urina lysis , dipst ick Nitrite negati ve Not Available In-Office Order Internal Use Only DO Not Attach Compendium DO Not Attach Compendium, Do Not Delete/merge, [id number] 12/21/2015 15:31:47 12/21/19 16 12/21/2015 urina lysis , dipst ick Urobilinogen .2 Not Available In-Of fice Order Internal Use Only DO Not Attach Compendium DO Not Attach Compendium, Do Not Delete/merge, [id number] 12/21/2015 15:31:47 12/21/19 16 12/21/2015 urina lysis , dipst ick Protein Negati ve Not Available In-Office Order Internal Use Only DO Not Attach Compendium DO Not Attach Compendium, Do Not Delete/merge, [id number] 12/21/2015 15:31:47 12/21/19 16 12/21/2015 urina lysis , dipst ick pH 6.0 Not Available In-Office Order Internal Use Only DO Not Attach Compendium DO Not Attach Compendium, Do Not Delete/merge, 12/21/2015 15:31:47 12/21/19 16 12/21/2015 urina lysis , dipst ick Blood Non-He molyze d: Trace Not Available In-Office Order Internal Use Only DO Not Attach Compendium DO Not Attach Compendium, Do Not Delete/merge, [id number] 12/21/2015 15:31:47 12/21/19 16 12/21/2015 urina lysis , dipst ick Specific [place] 1.010 Not Available In-Off ice Order Internal Use Only DO Not Attach Compendium DO Not Attach Compendium, Do Not Delete/merge, [id number] 12/21/2015 15:31:47 12/21/19 16 12/21/2015 urina lysis , dipst ick Ketone Negati ve Not Available In-Office Order Internal Use Only DO Not Attach Compendium DO Not Attach Compendium, Do Not Delete/merge, [id number] 12/21/2015 15:31:47 12/21/19 16 12/21/2015 urina lysis , dipst ick Bilirubin Negati ve Not Available In-Office Order Internal Use Only DO Not Attach Compendium DO Not Attach Compendium, Do Not Delete/merge, [id number] 12/21/2015 15:31:47 12/21/19 16 12/21/2015 urina lysis , dipst ick Glucose Negati ve Not Available In-Office Order Internal Use Only DO Not Attach Compendium DO Not Attach Compendium, Do Not Delete/merge, [id number] 12/21/2015 15:31:47 12/21/19 16 12/21/2015 urina lysis , dipst ick Appearance Clear Not Available In-Offi ce Order Internal Use Only DO Not Attach Compendium DO Not Attach Compendium, Do Not Delete/merge, [id number] 12/21/2015 15:31:47 12/21/19 16 12/21/2015 urina lysis , dipst ick Color Yellow Not Available In-Office Order Internal Use Only DO Not Attach Compendium DO Not Attach Compendium, Do Not Delete/merge, [id number] 12/21/2015 15:31:47 08/28/19 17 XR, chest , 2 view No observ ation record ed. [email or web address] Not Available 2016 12:56:18 Result Notes None recorded. 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 cannot feel right leg from knee down unless she is lying down and then she feels like a cement block is on it - has seen neurology, PT, pain management - would rather just deal with it Rula Coleman PA-C Attn: Accounting ,[address] [place], [address] , [facility] 6 15:54:56 Generaliz ed anxiety disorder 58085075 Active 2015 Rula Coleman PA-C Attn: Accounting ,[address] [place], [address] , [facility] 6 15:56:28 Overweigh t 959860846 Active 2016 Rula Coleman PA-C Attn: Accounting ,[address] [place], [address] , [facility] 7 11:13:44 Problem Notes None recorded. Procedures Surgical History Date Name Laterality Status Provider Name and Address Organization Details Recorded Time 08/05/19 15 Tonsillectomy completed Rula Coleman PA-C Attn: Accounting, [place], [address], [facility] 12/21/2015 16:08:27 02/25/19 14 Dilation and Curettage completed Chitra Jaime MA [facility] 12/21/2015 15:19:22 Imaging Results Imaging Date Name Status LastModified by Organiz ation Details LastModified Time 08/27/2016 XR, chest, 2 view completed [email or web address] Information not available 08/29/2016 12:56:18 Procedure Notes None recorded. Medical Equipment None Reported. Allergies Allergen ID Allergen Name Allergen Category Reaction Reaction Severity Criticality Documentation Date Start Date Code Code System Note Provider Name and Address Organization Details Recorded Time 66971 morphine medicatio n other severe Not available 12/21/2015 7052 RxNorm Not Available Not Available Not Available 75886 Celexa medicatio n vomiting Not available Not available 12/21/2015 30990 8 RxNorm Not Available Not Available Not Available 70615 latex environme nt,medica tion rash Not available Not available 12/21/2015 41491 91 RxNorm Not Available Not Available Not Available 03353 adhesive environme nt,medica tion photosens itivity Not available Not available 12/21/2015 03067 UNK Not Available Not Available Not Available Medications Name Sig Start Date Stop Date Status Note LastModified by Organization Details LastModified Time Mirena 21 mcg/24 hr (up to 8 years) 52 mg intrauterin e device Take 1 device by intrauter ine route. 2013 active Not Available Not Available Not Avai lable bupropion HCl XL 150 mg 24 hr tablet, extended release Take 1 tablet every day by oral route. 07/18 completed Not Available Not Available Not Available bupropion HCl 150 mg tablet,12 hr sustained-r elease(smok ing deterrent) Take 1 tablet every day by oral route. 02/20 completed Not Available Not Available Not Available Vitals Date Recorded Body height Body weight Body mass index (BMI) Heart rate Respiratory rate Body temperature Systolic blood pressure Diastolic blood pressure Provider Name and Address Organization Details Last Updated DateTime 6 168.91 cm 84569.3 6 g 25.8 kg/m2 91 /min 20 /min 98.7 [degF] 92 mm[Hg] 72 mm[Hg] Chitra Jaime MA [facility] 6 15:13:58 Date Recorded Body height Body weight Body mass index (BMI) Heart rate Respiratory rate Body temperature Systolic blood pressure Diastolic blood pressure Provider Name and Address Organization Details Last Updated DateTime 7 168.91 cm 28961.5 6 g 25.9 kg/m2 76 /min 18 /min 98.1 [degF] 100 mm[Hg] 60 mm[Hg] Jose Xie [facility] 7 09:05:42 Social History Question Answer Notes LastModified by Organizat ion Details LastModified Time Tobacco Smoking Status Never Smoker Chitra Jaime MA [facility], [facility] 12/21/2015 15:18:05 Do You Have An Advance Directive? No Information not available 12/21/2015 What Is Your Level Of Alcohol Consumption? Occasional Information not available 12/21/2015 Are You Blind Or Do You Have Difficulty Seeing? No Information not available 12/21/2015 What Is Your Level Of Caffeine Consumption? Moderate Information not available 12/21/2015 Can Child Swim? Yes Informati on not available 12/21/2015 How Much Tobacco Do You Chew? None Information not available 12/21/2015 Are You Currently Employed? Yes Information not available 12/21/2015 Are You Deaf Or Do You Have Serious Difficulty Hearing? No Information not available 12/21/2015 What Type Of Diet Are You Following? REGULAR Information not available 12/21/2015 Which Illicit Or Recreational Drugs Have You Used? None Information not available 12/21/2015 Education 2 Year College Informatio n not available 12/21/2015 What Is Your Occupation? [employer] Information not available 12/21/2015 Swimming/diving Yes Informati on not available 12/21/2015 Are There Any Guns Present In Your Home? No Information not available 12/21/2015 Hard Of Hearing Or Deaf In One Or Both Ears? No Information not available 12/21/2015 Legally Blind In One Or Both Eyes? No Information no t available 12/21/2015 Live Alone Or With Others? With Others Information not available 12/21/2015 How Many Children Do You Have? 1 Information not available 12/21/2015 Do You Use Protection During Sex? No Information not available 12/21/2015 Seat Belts Used Routinely Yes Information not available 12/21/2015 Are You Sexually Active? Yes Information not available 12/21/2015 Smoke Alarm In Home Yes Information not available 12/21/2015 Are You Passively Exposed To Smoke? No Information no t available 12/21/2015 General Stress Level High Information not available 12/21/2015 Do You Use Sunscreen Routinely? Yes Information not available 12/21/2015 Sex: Unknown Functional Status Question Answer Note LastModified by Organizat ion Details LastModified Time Do you have difficulty walking or climbing stairs? No Information not available 12/21/2015 Do you have difficulty doing errands alone? No Information not available 12/21/2015 Are you able to care for yourself? Yes Information n ot available 12/21/2015 Do you have difficulty dressing or bathing? No Information not available 12/21/2015 What is your exercise level? Moderate Information not available 12/21/2015 Mental Status Question Answer Note LastModified by Organization D etails LastModified Time Do you have difficulty concentrating, remembering or making decisions? No Information no t available 12/21/2015 Family History Relationship Description Onset Age of this Age Resolved Age Notes LastModified by Organization Details LastModified Time Unspecified Relation Diabetes mellitus Not available 2015 15:17:30 Medical History Condition Response Anxiety Disorder Y Depression Y Allergies Y Gynecological HistoryNo gynecological history recorded. Obstetrics History GPAL:G 0 P 0 0 0 0 Immunizations Vaccine Type Date Status Note Provider Nam e and Address Organization Details Recorded Time Influenza, split virus, quadrivalent, preservative 6 completed Not Available [facility] 03/14/2019 02:32:36 Past Encounters Encounter ID Performer Location Encounter Start Date Encounter Closed Date Diagnosis/Indication Diagnosis SNOMED-CT Code Diagnosis ICD10 Code Diagnosis Note [id number] JOYCE Mckeon (Adult Med) [address] [place] [id number] 12/21/2015 14:48:02 12/21/2015 17:59:29 Depressive disorder 53982803 F33.8 Per patient, well controlled with Wellbutrin 150mg SRWill continue Anxiety 93595687 F41.9 Adult heal th examination 962935132 Z00.01 30YO female here to establish care. Only complaints are depression and anxiety Active or passive immunization 714936932 Z23 [id number] JOYCE Mckeon (Adult Med) [address] [place] [id number] 07/18/2016 08:33:47 07/18/2016 17:35:30 Overweight 612793141 E66.3 Advised 30 minutes of exercise 5 days/week Advised to not drink her calories Advised 3 balanced meals/day with plenty of fruits and vegtables Venereal d isease screening 490312313 Z11.3 Depressive disorder 3548 9007 F33.8 d/w wellbutrin Advised that if she feels like things change to make an appointmen tAdvised she can make a counseling or psych appointmen t at the front here without seeing me for a referral; however, she states that she feels great at this time Generalize d anxiety disorder 89113271 F41.1 d/w wellbutrin Advised that if she feels like things change to make an appointmen t Advised she can make a counseling or psych appointmen t at the front here without seeing me for a referral; however, she states that she feels great at this time Health Concerns Section Related Observation LastModified by Organization Detai ls LastModified Time None Recorded Concern Status LastModified by Organization Details LastModified Time None Recorded Advance Directives Directive N: Payers Encounter Date Sequence Insurance Name Policy Number Policy Joseph Covered Member ID Joseph Member ID Guarantor Name 12/21/2015 1 *SELF PAY* Jimmy land Olesya 07/18/2016 1 [facility] [id number] Juan Ramon Olesya [id number] Bethany Olesya Notes Date Note Type Note Provider Name and Address Organization Details Recorded Time 12/21/2015 text/html Here to [facility]. Only complaints are anxiety/depressio n Rula Coleman PA-C Attn: Accounting,[address] [place], [address], [facility] 12/21/2015 18:21:25 07/18/2016 text/html 31YO female here for depression f/u. She stopped taking her pills for the last week (she has been on Wellbutrin for 3+ years) and states that she feels better than she did when taking the medication. She states I know this is going to sound ridiculous, but I asked my , 'Is this what it feels like to feel happy again?' I just feel so unclouded and feel like I am not on edge anymore since stopping the medication. She states that she has had a slight headache since stopping the medication, but this is starting to subside the more days she is off of the medication. Patient states that she was treated for Step 1 month ago at [facility]. She states she thought this was weird because she doesn't have tonsils. Rula Coleman PA-C Attn: Accounting,[address] [place], [address], [facility] 07/18/2016 11:15:18 OBGyn Episode No OBEpisode recorded.
[2024-06-08 16:39] VITALS: BMI 34.2
--- NOTE | 2024-06-08 16:39 | WPDHOMESLEEP ---
Sleep Study - Home Unattended Date of Study: 05/19/24 Ordering Provider: Dianna Ruelas MD Interpreting Provider: Rula Johnston, DO Home Sleep Study Type: Watch PAT Height: 1.68 m Weight: 96.162 kg Body Mass Index: 34.2 Neck Circumference (inches): 14.75 Sanford: 15 Reason for Sleep Study Daytime hypersomnia Sleep History The patient is a 39-year-old female that had a sleep study ordered by her sleep medicine physician for evaluation of excessive daytime sleepiness. The patient denies awakening from sleep short of breath. She denies awakening at night with heartburn, belching or cough. She rarely snores and is never loud enough that others complain. She denies having trouble sleeping when she has a cold. She denies waking up gasping for air throughout the night. She denies having breathing problems at night observed by herself or others. She constantly sweats excessively at night. She denies having heart palpitations or irregular heartbeats during the night. He frequently falls asleep during the day but rarely while driving. She denies cataplexy. She rarely has trouble at school or work due to sleepiness. She occasionally feels unable to move while waking up or falling asleep. She rarely experiences vivid dreamlike scenes upon awakening or falling asleep. She rarely feels afraid of going to sleep. She frequently has nightmares. She rarely remembers her dreams. She constantly has thoughts racing through her mind. She occasionally feels sad, depressed and anxious. She occasionally has muscular tension. She occasionally notices parts of her body jerk. She denies kicking during the night. She denies having crawling and aching feelings in her legs and denies having leg pain during the night and she denies grinding her teeth during sleep and denies awakening with morning jaw pain. She is occasionally bothered by pain during the day but never awakened by pain during the night. She rarely wakes up feeling stiff in the morning. She rarely wakes up with sore or achy muscles. She rarely wakes up with pain in the neck, spine and other joints. She goes to bed at 10:30 p.m. on both weekdays and weekends. It takes her 1 hour to fall asleep. She wakes up once throughout the night once at most to urinate and is able to fall back asleep within 5 minutes. She wakes up at 7:00 a.m. on weekdays and between 7-8 a.m. on the weekends. She typically gets 6-7 hours of sleep per night. She will stay in bed for 5-10 minutes after waking up in the morning. She currently lives with her and child. She denies consuming any caffeinated beverages within 2 hours of bedtime. She denies engaging in physical exercise before bedtime. She will read before falling asleep. She denies watching television before falling asleep. She denies taking naps in afternoon or the evening. She consumes 1/2 of caffeinated beverage a half cup of caffeinated beverage per day. She consumes 1 glass of wine every few weeks. She denies tobacco and recreational drug use. [facility] Past Medical History Medical History RUQ abdominal pain BMI 32.0-32.9,adult Hypersomnolence Narcolepsy Paresthesia of skin Abdominal bloating Hoarse voice quality Dysphonia Right flaccid hemiplegia Aphasia Acute right-sided weakness Anemia Numbness and tingling of right face Cervico-brachial neuralgia Occipital neuralgia Arm paresthesia, right Facial paresthesia JONO (obstructive sleep apnea) Chest pain at rest Complex posttraumatic stress disorder Thyroid enlargement Chronic headaches Surgical History Surgical History H/O dilation and curettage Family History Family History Grandparent Diabetes mellitus Breast cancer Father Neuropathy Mother Neuropathy Family history unknown Social History Social History Social History: , her is the durable POA. She is a full code. She has one child. 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 The patient occasionally drinks alcohol socially. She is a lifelong nonsmoker. No marijuana or illicit drugs. 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 Gender identity (if verbalized by the patient): Female Sexual Orientation (if Verbalized by the Patient): Straight or Heterosexual Spiritual care concerns: No Medications Home Medications ?Medication ?Instructions ?Recorded ?Confirmed ?Type multivitamin-ferrous 1 tablet PO DAILY 10/20/20 05/15/24 History fumarate-folic acid 18 mg-400 mcg tablet (Centrum Women) buspirone 5 mg tablet 5 mg PO TID PRN anxiety #60 tabs 12/20/22 05/15/24 Rx magnesium hydroxide 400 mg/5 mL 400 mg PO DAILY PRN 04/02/23 05/15/24 History oral suspension riboflavin (vitamin B2) 400 mg 400 mg PO DAILY 07/26/23 05/15/24 History tablet ubrogepant 100 mg tablet (Ubrelvy) 100 mg PO ONCE 07/26/23 05/15/24 History clonazepam 0.5 mg tablet 0.25 mg (1/2 x 0.5 mg) PO QHS PRN 11/19/23 05/15/24 Rx insomnia 30 days #15 tabs venlafaxine 37.5 mg tablet See Rx Instructions .Route 12/09/23 05/15/24 Rx .COMPLEX #60 tabs modafinil 200 mg tablet 200 mg PO BID 1 month #60 tabs 04/07/24 05/15/24 Rx amitriptyline 10 mg tablet 10 mg PO QHS 05/15/24 05/15/24 History sodium chloride 5 % eye ointment 1 applic EACH EYE QHS 05/15/24 05/15/24 History (Patti 128) Sleep Procedure The sleep study was completed using WatchPAT a technically adequate device with seven channels: peripheral arterial tone, actigraphy, body position, snore, respiratory movement, pulse oximetry, sleep staging, and heart rate. Prior to using the device, the patient received verbal and written instructions for its application and was provided with the help desk phone number for additional telephonic instruction with 24-hour availability of qualified personnel to answer questions. The study was scored using CMS guidelines. Sleep Architecture The total recording time is 8 hrs, 47 min. The total sleep time is 6 hrs, 56 min. Sleep latency is 19 minutes. REM latency is 141 minutes. The patient had 9 episodes of waking. Sleep architecture shows 14.6% deep sleep, 62.3% light sleep, and (as % Total Sleep Time) showed NREM (Light 62.3%; Deep 14.6%), and a 23.0% stage REM. The patient spent 51.1% of total sleep time in the supine position. Sleep efficiency was 78.94. Respiratory Analysis The overall AHI (pAHI 4%:) is 5.6. The overall AHI (pAHI 3%:) is 11.1. The central AHI is 3.1. The AHI was 8.4 in NREM and 20.2 in REM sleep. The AHI was 18.0 in Supine and 4.1 in Non-supine sleep. Percent of Vinnie Sloan respirations is 0.0. Oximetry Data The oxygen desaturation index (VELASQUEZ 4%:) is 5.7. The mean saturation is 94%, and the lowest saturation is 85%. Time spent with saturation < 88% is 0.4 minutes. Snoring Profile Snoring average intensity is 40 dB. The patient snored above 45 decibels for 8.4 minutes, 2.0% of sleep time. Cardiac Profile The average pulse rate is 71 beats per minutes. The lowest pulse rate is 51 bpm. The highest pulse rate reported is 118 bpm. Atrial fibrillation was not detected. Premature beats occur <0.1 per minute. Assessment and Plan Assessment and Plan (1) JONO (obstructive sleep apnea): Code(s): G47.33 - Obstructive sleep apnea (adult) (pediatric) Status: Acute Assessment and Plan: The patient had an overall AHI of 5.6 with desaturation down to 85%. This is consistent with mild sleep apnea. The patient is currently using a MAD managed by Dr. Figueroa. It was not listed whether the patient wore the oral appliance during this study. If she used her oral appliance during this home sleep test, her device will need to be titrated further if possible. If the patient's oral appliance is unable to be titrated further, she will need to talk about other treatment options with her sleep dentist and sleep physician. Data The data obtained during this sleep study is adequate for interpretation. Certification This sleep study has been reviewed by a board certified sleep medicine physician.
== END 2024-05-20 11:36 | disposition home or self-care (01) ==
LOC: ANHCSM 07:49
PROVIDERS: PCP Physician Assistant; Visit Provider Internal Medicine Critical Care Medicine
DX: G47.33 Obstructive sleep apnea (adult) (pediatric) (principal)
CPT/HCPCS: 95800

== ENCOUNTER 2024-06-01 16:01 | Emergency (ER) | payer BC, OTHER, SELFPAY ==
--- NOTE | ~2024-06-01 | XR_ITS ---
CHEST RADIOGRAPH, PA AND LATERAL CLINICAL HISTORY: CP . COMPARISON: 03/06/2020 TECHNIQUE: PA and lateral views of the chest. FINDINGS The cardiomediastinal silhouette is unremarkable. The lungs are clear. Visualized osseous structures and soft tissues are unremarkable. IMPRESSION: No focal infiltrate or effusion. Reviewed, dictated and finalized at location A.
--- NOTE | 2024-06-01 16:02 | ECG_ITS ---
Test Date: 2024-06-01 16:13:16 Measurements Intervals [place] Rate: 87 P: 49 MS: 124 QRS: 37 QRSD: 98 T: 27 QT: 366 QTc: 442 Interpretive Statements SINUS RHYTHM INCOMPLETE RIGHT BUNDLE BRANCH BLOCK BASELINE ARTIFACT- III BORDERLINE ECG No previous ECG available for comparison Electronically Signed On 06-01-2024 16:24:09 CDT by Damir Balderas D.O.
[2024-06-01 16:05] VITALS: BP 166/99; PULSE 95; RESP 20; TEMP 36.7; O2SAT 100
--- NOTE | 2024-06-01 17:07 | ED_ITS ---
HPI - Chest Pain General Chief Complaint: Chest Pain <Negar Winston PA-C - Last Filed: 06/02/24 09:37> Stated Complaint: Chest pain, palpitations <Negar Winston PA-C - Last Filed: 06/02/24 09:37> Time Seen by Provider: 06/01/24 17:07 <Negar Winston PA-C - Last Filed: 06/02/24 09:37> Focused HPI: This is a 39 year old female that presents to the ER for chest pain, palpitations. Reports shortness of breath as well. Ongoing over the last couple of months. Reports her heart rate has been in the 120s at rest. GENERAL: Well-appearing, well-nourished, and in no acute distress. HEAD: Normocephalic, atraumatic. CHEST: Clear to auscultation. ?No respiratory distress. HEART: Regular rate and rhythm.? NEURO: ?Alert and oriented x3. Patient screened in triage and initial orders placed.? ?Additional care and disposition to be based upon?diagnostic testing and treatment. <Negar Winston PA-C - Last Filed: 06/02/24 09:37> Source: patient <Peter Medina MD - Last Filed: 06/01/24 20:33> Mode of arrival: ambulatory <Peter Medina MD - Last Filed: 06/01/24 20:33> Limitations: no limitations <Peter Medina MD - Last Filed: 06/01/24 20:33> History of Present Illness HPI narrative: 39-year-old here with the complaints of midsternal chest pain started few hours ago when she was at work have. By the time she came to the ER her pain is very minimal. She denied any shortness of breath. 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 No previous history of CAD. <Peter Medina MD - Last Filed: 06/01/24 20:33> MD complaint: chest pain <Peter Medina MD - Last Filed: 06/01/24 20:33> Onset (ago): hour(s) (2) <Peter Medina MD - Last Filed: 06/01/24 20:33> Onset: during rest <Peter Medina MD - Last Filed: 06/01/24 20:33> Pain location: left chest <Peter Medina MD - Last Filed: 06/01/24 20:33> Pain radiation: neck <Peter Medina MD - Last Filed: 06/01/24 20:33> Severity: mild <Peter Medina MD - Last Filed: 06/01/24 20:33> Exacerbating factors: nothing <Peter Medina MD - Last Filed: 06/01/24 20:33> Context: recent illness <Peter Medina MD - Last Filed: 06/01/24 20:33> Related Data Home Medications: Home Medications ?Medication ?Instructions ?Recorded ?Confirmed ?Last Taken ?Type multivitamin-ferrous 1 tablet PO DAILY 10/20/20 05/15/24 Unknown History fumarate-folic acid 18 mg-400 mcg tablet (Centrum Women) magnesium hydroxide 400 mg/5 mL 400 mg PO DAILY PRN 04/02/23 05/15/24 Unknown History oral suspension riboflavin (vitamin B2) 400 mg 400 mg PO DAILY 07/26/23 05/15/24 Unknown History tablet ubrogepant 100 mg tablet (Ubrelvy) 100 mg PO ONCE 07/26/23 05/15/24 Unknown History amitriptyline 10 mg tablet 10 mg PO QHS 05/15/24 05/15/24 Unknown History sodium chloride 5 % eye ointment 1 applic EACH EYE QHS 05/15/24 05/15/24 Unknown History (Patti 128) <Negar Winston PA-C - Last Filed: 06/02/24 09:37> Allergies/Adverse Reactions: Allergies Allergy/AdvReac Type Severity Reaction Status Date / Time adhesive Allergy Intermediate RASH Verified 05/15/24 07:30 latex Allergy Intermediate RASH Verified 05/15/24 07:30 hydrocodone Allergy Unknown Itching Verified 05/15/24 07:30 morphine Allergy Unknown Siezure Verified 05/15/24 07:30 phenol Allergy Unknown Swelling Verified 05/15/24 07:30 nortriptyline AdvReac Severe suicidal Verified 05/15/24 07:30 ideation bupropion (From Wellbutrin) AdvReac Intermediate Confusion Verified 05/15/24 07:30 citalopram AdvReac Intermediate Headache Verified 05/15/24 07:30 lexapro AdvReac Severe sweats, Uncoded 05/15/24 07:30 nightmares amitriptyline AdvReac Intermediate arthralgia Uncoded 05/15/24 07:30 <Negar Winston PA-C - Last Filed: 06/02/24 09:37> Review of Systems 2 Review of Systems: All systems reviewed & are unremarkable except as noted in HPI and below <Peter Medina MD - Last Filed: 06/01/24 20:33> Constitutional: Constitutional: Reports no additional constitutional complaints <Peter Medina MD - Last Filed: 06/01/24 20:33> Eyes: Eyes: Reports no additional eye complaints <Peter Medina MD - Last Filed: 06/01/24 20:33> ENT: Reports system reviewed and no additional complaints, except as documented <Peter Medina MD - Last Filed: 06/01/24 20:33> Cardiovascular: Cardiovascular: Reports no additional cardiovascular complaints <Peter Medina MD - Last Filed: 06/01/24 20:33> Respiratory: Respiratory: Reports no additional respiratory complaints < Peter Medina MD - Last Filed: 06/01/24 20:33> Gastrointestinal: Gastrointestinal: Reports no additional gastrointestinal complaints <Peter Medina MD - Last Filed: 06/01/24 20:33> Musculoskeletal: Musculoskeletal: Reports no additional musculoskeletal complaints <Peter Medina MD - Last Filed: 06/01/24 20:33> Integumentary/Breasts: Skin/Breast: Reports system reviewed and no additional complaints, except as docu <Peter Medina MD - Last Filed: 06/01/24 20:33> PMFSH Past Medical History Medical History: Medical History RUQ abdominal pain BMI 32.0-32.9,adult Hypersomnolence Narcolepsy Paresthesia of skin Abdominal bloating Hoarse voice quality Dysphonia Right flaccid hemiplegia Aphasia Acute right-sided weakness Anemia Numbness and tingling of right face Cervico-brachial neuralgia Occipital neuralgia Arm paresthesia, right Facial paresthesia JONO (obstructive sleep apnea) Chest pain at rest Complex posttraumatic stress disorder Thyroid enlargement Chronic headaches <Negar Winston PA-C - Last Filed: 06/02/24 09:37> Surgical History Surgical History: Surgical History H/O dilation and curettage <Negar Winston PA-C - Last Filed: 06/02/24 09:37> Family History Family History: Family History Grandparent Diabetes mellitus Breast cancer Father Neuropathy Mother Neuropathy Family history unknown <Negar Winston PA-C - Last Filed: 06/02/24 09:37> Social History Social History: Social History Social History: , her is the durable POA. She is a full code. She has one child. She works at [employer] which is a [employer] for [employer] people. The patient occasionally drinks alcohol socially. She is a lifelong nonsmoker. No marijuana or illicit drugs. 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 HEAD: Normocephalic, atraumatic. EYES: PERRLA and EOMI. ENT: Nares clear, no rhinorrhea or epistaxis. Mucous membranes moist. NECK: Supple. CHEST: Clear to auscultation. No respiratory distress. HEART: Regular rate and rhythm. No murmur heard. Normal peripheral pulses. ABDOMEN: Soft, nontender, nondistended, normal active bowel sounds. EXTREMITIES: Normal range of motion. No edema. SKIN: Warm, dry, no rash. NEURO: No focal deficits. Alert and oriented x3. PSYCH: Normal mood and affect. <Peter Medina MD - Last Filed: 06/01/24 20:33> Course Course Emergency Course: Patient comfortably resting in no discomfort I did inform her about the EKG and chest x-ray and lab work. Cause of her pain appears to be atypical at this time. Advised to continue all home medications recommended her to follow with her primary doctor and dressing machine operator as scheduled. <Peter Medina MD - Last Filed: 06/01/24 20:33> Vital Signs Vital signs: Vital Signs Temperature 98.0 F 06/01/24 16:05 Pulse Rate 95 06/01/24 16:05 Respiratory Rate 20 06/01/24 16:05 Blood Pressure 166/99 H 06/01/24 16:05 Pulse Oximetry 100 06/01/24 16:05 Oxygen Delivery Room Air 06/01/24 16:05 Temperature 98.0 F 06/01/24 16:05 Pulse Rate 88 06/01/24 20:46 Respiratory Rate 15 06/01/24 20:46 Blood Pressure 115/78 06/01/24 20:46 Pulse Oximetry 98 06/01/24 20:46 Oxygen Delivery Room Air 06/01/24 19:28 <eNgar Winston PA-C - Last Filed: 06/02/24 09:37> Vital Signs Temperature 98.0 F 06/01/24 16:05 Pulse Rate 95 06/01/24 16:05 Respiratory Rate 20 06/01/24 16:05 Blood Pressure 166/99 H 06/01/24 16:05 Pulse Oximetry 100 06/01/24 16:05 Oxygen Delivery Room Air 06/01/24 16:05 Temperature 98.0 F 06/01/24 16:05 Pulse Rate 88 06/01/24 20:46 Respiratory Rate 15 06/01/24 20:46 Blood Pressure 115/78 06/01/24 20:46 Pulse Oximetry 98 04/07/25 20:46 Oxygen Delivery Room Air 06/01/24 19:28 <Peter Medina MD - Last Filed: 06/01/24 20:33> MDM - Chest Pain Differential Diagnosis Differential diagnosis: Likely unstable angina pectoris, atypical chest pain and chest pain <Peter Medina MD - Last Filed: 06/01/24 20:33> Medical Records Data Attestation: I reviewed the patient's medical records. <Peter Medina MD - Last Filed: 06/01/24 20:33> Lab Data Attestation: I reviewed the patient's lab results. <Peter Medina MD - Last Filed: 06/01/24 20:33> Result diagrams: 06/01/24 17:30 06/01/24 17:30 <Negar Winston PA-C - Last Filed: 06/02/24 09:37> Labs: Lab Results 06/01/24 06/01/24 Range/Units 17:30 19:18 WBC 9.5 (4.5-10.0) K/mm3 RBC 4.33 (4.2-5.4) M/mm3 Hgb 12.4 (12.0-15.0) g/dL Hct 38.7 (37.0-47.0) % MCV 89.4 (80-100) fl MCH 28.6 (26-34) pg MCHC 32.0 (32-36) g/dl RDW 12.7 (11.5-14.5) % Plt Count 274 (150-375) k/mm3 MPV 10.0 (7.4-10.4) fl Immature Gran % (Auto) 0.3 (0-0.5) % Neut % (Auto) 74.3 H (45.5-73.1) % Lymph % (Auto) 19.1 (18.3-44.2) % [place] % (Auto) 5.5 (2.6-8.5) % Eos % (Auto) 0.6 (0-4.4) % Baso % (Auto) 0.2 (0.2-1.2) % Lymph # (Auto) 1.82 (0.9-3.2) K/mm3 [place] # (Auto) 0.5 (0.1-0.6) K/mm3 Eos # (Auto) 0.1 (0-0.3) K/mm3 Baso # (Auto) 0.0 (0.0-0.1) K/mm3 Abs Immat Gran (auto) 0.03 (0.00-0.031) K/mm3 Absolute Neuts (auto) 7.1 H (1.3-6.7) K/mm3 Absolute Nucleated RBC 0.000 (0.0-0.012) K/mm3 Nucleated RBC % 0.0 (0.0-0.2) % PT 13.5 (11.1-14.7) Seconds INR 1.0 APTT 32.2 (22.3-36.8) Seconds Sodium 139 (137-145) mmol/L Potassium 4.0 (3.4-5.0) mmol/L Chloride 103 (98-107) mmol/L Carbon Dioxide 27 (22-30) mmol/L Anion Gap 9 (4-12) mmol/L BUN 13 (7-17) mg/dL Creatinine 0.89 (0.7-1.0) mg/dL Estim Creat Clear Calc 90 ml/min Estimated GFR > 60 (59 - ) Glucose 99 (65-110) mg/dL Calcium 9.3 (8.4-10.2) mg/dL Total Bilirubin 0.3 (0.2-1.3) mg/dL AST 21 (14-36) U/L ALT 16 (6-35) U/L Alkaline Phosphatase 78 (38-126) U/L Troponin I < 0.012 < 0.012 (0.000-0.034) ng/mL Total Protein 8.0 (6.3-8.2) g/dL Albumin 4.5 (3.5-5.1) g/dL Lipase 68 (23-300) U/L <Negar Winston PA-C - Last Filed: 06/02/24 09:37> Lab Results 06/01/24 06/01/24 Range/Units 17:30 19:18 WBC 9.5 (4.5-10.0) K/mm3 RBC 4.33 (4.2-5.4) M/mm3 Hgb 12.4 (12.0-15.0) g/dL Hct 38.7 (37.0-47.0) % MCV 89.4 (80-100) fl MCH 28.6 (26-34) pg MCHC 32.0 (32-36) g/dl RDW 12.7 (11.5-14.5) % Plt Count 274 (150-375) k/mm3 MPV 10.0 (7.4-10.4) fl Immature Gran % (Auto) 0.3 (0-0.5) % Neut % (Auto) 74.3 H (45.5-73.1) % Lymph % (Auto) 19.1 (18.3-44.2) % [place] % (Auto) 5.5 (2.6-8.5) % Eos % (Auto) 0.6 (0-4.4) % Baso % (Auto) 0.2 (0.2-1.2) % Lymph # (Auto) 1.82 (0.9-3.2) K/mm3 [place] # (Auto) 0.5 (0.1-0.6) K/mm3 Eos # (Auto) 0.1 (0-0.3) K/mm3 Baso # (Auto) 0.0 (0.0-0.1) K/mm3 Abs Immat Gran (auto) 0.03 (0.00-0.031) K/mm3 Absolute Neuts (auto) 7.1 H (1.3-6.7) K/mm3 Absolute Nucleated RBC 0.000 (0.0-0.012) K/mm3 Nucleated RBC % 0.0 (0.0-0.2) % PT 13.5 (11.1-14.7) Seconds INR 1.0 APTT 32.2 (22.3-36.8) Seconds Sodium 139 (137-145) mmol/L Potassium 4.0 (3.4-5.0) mmol/L Chloride 103 (98-107) mmol/L Carbon Dioxide 27 (22-30) mmol/L Anion Gap 9 (4-12) mmol/L BUN 13 (7-17) mg/dL Creatinine 0.89 (0.7-1.0) mg/dL Estim Creat Clear Calc 90 ml/min Estimated GFR > 60 (59 - ) Glucose 99 (65-110) mg/dL Calcium 9.3 (8.4-10.2) mg/dL Total Bilirubin 0.3 (0.2-1.3) mg/dL AST 21 (14-36) U/L ALT 16 (6-35) U/L Alkaline Phosphatase 78 (38-126) U/L Troponin I < 0.012 < 0.012 (0.000-0.034) ng/mL Total Protein 8.0 (6.3-8.2) g/dL Albumin 4.5 (3.5-5.1) g/dL Lipase 68 (23-300) U/L <Peter Medina MD - Last Filed: 06/01/24 20:33> Imaging Data Radiologist's impression: ITS Impressions Chest X-Ray 06/01/24 17:12 IMPRESSION: No focal infiltrate or effusion. <Peter Medina MD - Last Filed: 06/01/24 20:33> ECG Data EKG #1: ECG completion date: 06/01/24 <Peter Medina MD - Last Filed: 06/01/24 20:33> ECG completion time: 16:13 <Peter Medina MD - Last Filed: 06/01/24 20:33> EKG Interpretation: normal rate (87), sinus rhythm, no ectopy, normal QRS, normal QT and no acute changes <Peter Medina MD - Last Filed: 06/01/24 20:33> Critical Care Time Critical Care Time Critical Care Time: No <Negar Winston PA-C - Last Filed: 06/02/24 09:37> Discharge Plan Discharge Clinical Impression: Chest pain, non-cardiac <Negar Winston PA-C - Last Filed: 06/02/24 09:37> Patient Disposition: Home <JOYCE Richards Last Filed: 06/02/24 09:37> Condition: Stable <JOYCE Richards Last Filed: 06/02/24 09:37> Instructions: Chest Pain (ED) <JOYCE Richards Last Filed: 06/02/24 09:37> Patient Language: French <Negar Winston PA-C - Last Filed: 06/02/24 09:37> Prescriptions: No Action buspirone 5 mg tablet 5 mg PO TID PRN (Reason: anxiety) Qty: 60 0RF modafinil 200 mg tablet 200 mg PO BID 30 Days Qty: 60 5RF riboflavin (vitamin B2) 400 mg tablet 400 mg PO DAILY Ubrelvy 100 mg tablet 100 mg PO ONCE Patient Comments: Hernandez- neuro Rx Instructions: as a single dose; may repeat once in >=2 hours after first dose if needed clonazepam 0.5 mg tablet 0.25 mg PO QHS PRN (Reason: insomnia) 30 Days Qty: 15 1RF magnesium hydroxide 400 mg/5 mL suspension 400 mg PO DAILY PRN amitriptyline 10 mg tablet 10 mg PO QHS sodium chloride [Patti 128] 5 % ointment 1 applic EACH EYE QHS Centrum Women 18-400 mg-mcg Tablet 1 tablet PO DAILY venlafaxine 37.5 mg tablet See Rx Instructions .ROUTE .COMPLEX Qty: 60 1RF Dose Instruction: TAKE 1 TABLET BY MOUTH TWICE DAILY Rx Instructions: TAKE 1 TABLET BY MOUTH DAILY <Negar Winston PA-C - Last Filed: 06/02/24 09:37> Follow-up/Referrals: Sariah Luo PA-C [Primary Care Provider] - <Negar Winston PA-C - Last Filed: 06/02/24 09:37> Time of Disposition: 20:32 <Negar Winston PA-C - Last Filed: 06/02/24 09:37> 20:32 <Peter Medina MD - Last Filed: 06/01/24 20:33>
[2024-06-01 17:49] LABS: Basophils Percent Auto 0.2 % (0.2-1.2); Eosinophils Absolute Auto 0.1 K/mm3 (0-0.3); Eosinophils Percent Auto 0.6 % (0-4.4); Hematocrit 38.7 % (37.0-47.0); Hemoglobin 12.4 g/dL (12.0-15.0); Immature Granulocyte Absolute 0.03 K/mm3 (0.00-0.031); Immature Granulocyte Percent A 0.3 % (0-0.5); Lymphocytes Absolute Auto 1.82 K/mm3 (0.9-3.2); Lymphocytes Percent Auto 19.1 % (18.3-44.2); Mean Corpuscular Hemoglobin 28.6 pg (26-34); Mean Corpuscular Volume 89.4 fl (80-100); Monocytes Absolute Auto 0.5 K/mm3 (0.1-0.6); Monocytes Percent Auto 5.5 % (2.6-8.5); Neutrophils Absolute Auto 7.1 K/mm3 (1.3-6.7); Neutrophils Percent Auto 74.3 % (45.5-73.1); Platelet Count Result 274 k/mm3 (150-375); Red Blood Count 4.33 M/mm3 (4.2-5.4); Red Cell Distribution Width 12.7 % (11.5-14.5); White Blood Count 9.5 K/mm3 (4.5-10.0)
--- OUTSIDE RECORDS SUMMARY | 2024-06-01 17:49 | XMS_ITS | Clinical Summary ---
Author Organization [facility] Virtual Care Address [address] [place] [phone] Phone Care Team Providers Care Client Technical Specialist Name Role Phone Lisa Pires MD Primary Care Provider Allergies Active Allergy Reactions Criticality Noted Date Comments Adhesive Itching,Photosensiti vity,Redness Low 10/10/2011 Amitriptyline Joint pain Low 07/24/2023 Bupropion Other (See comments) Low 07/24/2023 confusion Chloraseptic Cough And Throat Swelling Medium 10/31/2023 Pt reports throat swelling Citalopram Nausea And Vomiting,Vomiting Low 06/02/2014 Hydrocodone Itching Low 11/11/2020 Latex Itching,Rash,Redness Medium 10/10/2011 Escitalopram Other (See comments) Low 07/24/2023 Nightmare and sweating Morphine Other (See comments),Seizures,S yncope High 08/20/2013 Seizure Other Swelling Medium 11/11/2020 Phenol Other (See comments) Low 11/18/2020 Medications multivitamin/ir on/folic acid (CENTRUM WOMEN ORAL) Take by mouth Active aspirin 81 mg enteric coated tablet Take 81 mg by mouth daily Active escitalopram (LEXAPRO) 10 mg tablet Take 1 tablet (10 mg total) by mouth daily 90 tablet 1 02/07/2021 Active venlafaxine 37.5 mg tablet extended release 24hr 24 hr tablet Take 1 tablet (37.5 mg total) by mouth daily Active ubrogepant (UBRELVY) 100 mg tablet Take 1 tablet (100 mg total) by mouth once as needed for migraine May repeat dose once in 2 hours if no relief. Do not exceed 2 doses in 24 hours. Active busPIRone (BUSPAR) 5 mg tabletIndicatio ns:Generalized Anxiety Disorder Take 1 tablet (5 mg total) by mouth 3 (three) times a day Active riboflavin (Vitamin B-2) 100 mg tabletIndicatio ns:Riboflavin Deficiency Take 1 tablet (100 mg total) by mouth daily Active amitriptyline (ELAVIL) 10 mg tablet Take 1 tablet (10 mg total) by mouth nightly Active ciprofloxacin (CIPRO) 500 mg tablet Take 1 tablet (500 mg total) by mouth every 12 (twelve) hours for 7 days 03/30/2024 Active busPIRone (BUSPAR) 5 mg tabletIndicatio ns:Generalized Anxiety Disorder Take 1 tablet (5 mg total) by mouth as needed Active modafiniL (PROVIGIL) 100 mg tablet Active sodium chloride 5 % ophthalmic ointmentIndicat ions:Corneal Edema Apply 1/4 inch into both eyes at night 3.5 g 11 04/03/2024 Active Active Problems Problem Noted Date Diagnosed Date 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 Assessment & Plan (01/30/2024 10:11 AM TRADE MANAGER): -pt self reports trichiasis LLL; self-treated with epilation 2 days ago -no trichiatic lashes identified today -ed pt not to epilate lashes until appt with oculoplastics -RTC 4-6 weeks oculoplastics for eyelash electrolysis LLL 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] 11/07/2023 Assessment & Plan (01/30/2024 10:09 AM TRADE MANAGER): -pt c/o ice pick pain shooting through OD x 1 year -episodes last 4-5 days; always worse in the morning when she wakes up +h/o chronic migraines; follows with neurology -wonder if pt is having episodes of RCE to account for symptoms -overall pt reports symptoms are improved however still having episodes of pain -discussed surgical interventions including SK and PTK with our cornea service today; pt amenable to consultation -cont Refresh gel qhs OU -RTC next available cornea at [facility] -h/o complete resolution with LATIA 8.4 BCL 11/07/2023 with me -h/o complete resolution with 3 week course of doxy 50mg po bid and lotemax tid OU Assessment & Plan (12/12/2023 11:03 AM CDT): -pt c/o ice pick pain shooting through OD x 1 year -episodes last 4-5 days; always worse in the morning when she wakes up +h/o chronic migraines; follows with neurology -wonder if pt is having episodes of RCE to account for symptoms -symptoms fully resolved on combination of doxy 50mg po bid and lotemax tid OD x 3 weeks -also discussed surgical interventions including SK and PTK; pt would like to try conservative treatment first before considering this -restart doxy 50mg po qd -restart FML bid OU x 3 weeks -start Refresh gel qhs OU -RTC 6 weeks anterior segment check; sooner with any issues -h/o complete resolution with LATIA 8.4 BCL 11/07/2023 with me -h/o complete resolution with 3 week course of doxy 50mg po bid and lotemax tid OU Assessment & Plan (11/11/2023 12:33 PM CDT): -pt c/o ice pick pain shooting through OD x 1 year -episodes last 4-5 days; always worse in the morning when she wakes up +h/o chronic migraines; follows with neurology -seen by [facility] last week; no ocular etiology explaining pt symptoms -wonder if pt is having episodes of RCE to account for symptoms -BCL placed last visit; pt reported complete resolution of symptoms x 4 days -discussed long-term tx with a course of doxy po 50mg bid and FML tid x 3 weeks -also discussed surgical interventions including SK and PTK; pt would like to try conservative treatment first before considering this -BCL removed today -d/c moxi -start doxy 50mg po bid x 3 weeks -start FML tid OU x 3 weeks -RTC 1 month anterior segment check; sooner with any issues -h/o complete resolution with LATIA 8.4 BCL 11/07/2023 with me Assessment & Plan (11/07/2023 2:32 PM CDT): -pt c/o ice pick pain shooting through OD x 1 year -episodes last 4-5 days; always worse in the morning when she wakes up -no other ocular symptoms; denies redness, tearing, however she does edorse some blurred vision OD today +h/o chronic migraines; follows with neurology -seen by [facility] last week; no ocular etiology explaining pt symptoms -today pt presents with 2+ ABMD OD>OS -wonder if pt is having episodes of RCE to account for symptoms -discussed findings with pt today; will trial BCL and moxi over the weekend and check in on symptoms on Saturday (she cannot come into the office tomorrow d/t work) -discussed long-term tx with a course of doxy po 50mg bid and FML tid x 3 weeks -also discussed surgical interventions including SK and PTK; pt would like to try conservative treatment first before considering this -LATIA 8.4 placed today OD -moxi tid OD -RTC Saturday with me for anterior segment check Eye pain, bilateral 10/31/2023 Assessment & Plan (10/31/2023 5:14 PM CDT): --Presenting with one year of episodic ice pick sensation in the right eye with no obvious trigger and no remedy. Recently with episode in the left eye a few days ago. Episodes occur about once a month, last about 4-5 days and are associated with constant 7/10 pain. She has no visual symptoms associated with these episodes and has not yet been evaluated during one of the episodes. --Exam today is notable for excellent visual acuity and reassuring afferent function. IOP normal OU. She has a structurally normal slit lamp and fundus exam. Gonio was somewhat limited by tolerance but notable for at least grade III angles superiorly and inferiorly OU without synechiae. OCT RNFL/Mac + GCC all reassuring. --MRI Brain wo contrast 06/2023 was unremarkable. --There are no exam findings to explain her symptoms. Since her recent brain MRI did not appear to have adequate orbital cuts, we will obtain MRI orbits w/wo contrast to better assess for structural or subtle inflammatory etiologies. 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 She has had apparently extensive hospitalization with diagnostic tic testing done results unavailable for review at this time. I will retrieve medical records from a recent hospitalization and see her back for follow-up. Patient has been counseled that I will be leaving neurology practice soon and therefore if she needs additional diagnostic testing she will require alternative neurological referral. Weakness 11/18/2020 Assessment & Plan (12/22/2020 5:09 PM CDT): He remains unclear as to what led her to have the period of expressive aphasia and what seems to be an ongoing albeit improving right-sided weakness. The fact that she continues to have right-sided weakness with a normal MRI is perplexing. In order to exclude alternate cerebrovascular and cardiovascular etiologies, I have suggested that she see her PCP for consideration of a referral to a powder coater for a transesophageal echocardiogram as well as extended shelter monitor to exclude paroxysmal atrial fibrillation. In addition I have suggested that she speak to her PCP about a hematology referral for an auto coagulopathy workup. As far as continued cerebrovascular prophylaxis at this time, as she was not on aspirin at the time of her initial event, I think that daily aspirin in lieu of clopidogrel would be most appropriate. I have asked that she hold the clopidogrel and replace it with aspirin 1 daily. I have also asked her to speak to her PCP and if she has not had a recent lipid profile this can also be checked. As I will be retiring very soon, she will be transferring future neurologic care to Dr. Todd Whitley, and I will be forwarding correspondence to Dr. Whitley accordingly. Assessment & Plan (11/18/2020 4:57 PM CDT): Patient's cites right-sided weakness and right-sided body pain accompanying by pre-existing right-sided numbness. She has been hospitalized at [facility] with what sounds to be extensive diagnostic testing completed. Medical records will be obtained for review. Anxiety 12/21/2015 Depressive disorder 12/21/2015 Migraine 02/12/2012 MIRELLA (generalized anxiety disorder) 11/11/2011 Encounters Date Type Department Care Team Description 04/14/2024 11:30 AM TRADE MANAGER Office Visit [facility] [address], [address] [place] [address] Albin Luis MD Trichiasis of left lower eyelid (Primary Dx) 04/03/2024 2:45 PM TRADE MANAGER Office Visit [facility] 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] (Primary Dx); Trichiasis of left lower eyelid from Last 3 Months Immunizations Immunization Administration Dates Next Due Pfizer SARS-CoV-2 Monovalent Vaccination (12+ Yrs) PURPLE 08/02/2020,07/12/2020 Surgical History Surgery Date Site/Laterality Comments TONSILLECTOMY ORAL SURGERY Medical History Medical History Date Comments Migraine Conversion disorder Arthritis In cervical spin e Family History Medical History Relation Name Comments No Known Problems Brother Neuropathy Father Cataracts Mother Glaucoma Neg Hx Macular degeneration Neg Hx Relation Name Status Comments Brother Alive Father Alive Mother Alive Social History Tobacco Use Types Packs/Day Years Used Date Smoking Tobacco: Never Smokeless Tobacco: Never Snuff Personal Safety Answer Date Recorded Have you ever been in or are you currently in a harmful physical or emotional relationship or is someone making you feel afraid or unsafe? Denies 07/24/2023 Comments Unknown Sex and Gender Information Value Date Recorded Sex Assigned at Not on file Legal Sex Female 5:54 PM CDT Gender Identity Female 06/21/2020 10:34 AM CDT Sexual Orientation Bisexual 06/21/2020 10 :34 AM CDT Obstetrics History Last Filed Vital Signs Vital Sign Reading Time Taken Comments Blood Pressure 116/74 07/24/2023 7:38 PM CDT Pulse 64 07/24/2023 7:38 PM CDT Temperature 36.6 C (97.8 F) 07/24/2023 7:38 PM CDT Respiratory Rate 16 07/24/2023 7:38 PM CDT Oxygen Saturation 98% 07/24/2023 7:38 PM CDT Inhaled Oxygen Concentration - - Weight 86.7 kg (191 lb 2.2 oz) 07/24/2023 1:55 P M CDT Height 167.6 cm (5' 5.98 ) 07/24/2023 1:55 PM CD T Body Mass Index 30.87 07/24/2023 1:55 PM CDT Plan of Treatment Health Maintenance Due Date Last Done Comments Cervical Cancer Screening 1987 Depression Screening 1987 Hepatitis C Screening 1987 DTaP/Tdap/Td Vaccine (1 - Tdap) 05/02/1998 Varicella Vaccines (1 of 2 - 13+ 2-dose series) 05/02/2000 Hepatitis B Screening 05/02/2005 Regular Well Visit/Exam 18-64 05/02/2005 Covid-19 Vaccine (2023-2 5 season) 2023 08/02/2020, 07/12/2020 Influenza Vaccine (#1) 2023 6, 12/06/2011 HPV Vaccines Aged Out No longer eligi ble based on patient's age to complete this topic Pneumococcal vaccine <65 Aged Out No longer eligible based on patient's age to complete this topic Insurance [employer] [place] [employer] [facility] BLUE [facility] CHOICE OOS [facility] Care Teams Client Technical Specialist Relationship Specialty Start Date End Date Lisa Pires MD [address] [facility] [[email or web address] [address] [place] [address] PCP - General Family Medicine 06/17/20
--- OUTSIDE RECORDS SUMMARY | 2024-06-01 17:49 | XMS_ITS | Patient Health Record ---
Author Organization [facility] [employer] [facility] Address [address] [facility] [address] [place] [address] Care Team Providers Care Winch Stripper Name Role Phone Effie Moss Unavailable [phone] JuarezChen lyn Unavailable [phone] Migration, Provider Unavailable Unavailable Allergies Allergen (clinical drug ingredient) Drug/Non Drug Allergy documented on EMR Reaction Allergy Type Onset Date Status HYCOMINE (HYDROCODONE-PPA) (uncoded) Unknown Allergy 09/11/2019 Active phenol Chloraseptic Unknown Drug Allergy 09/11/2019 Act salo Latex Latex Unknown Allergy 09/11/2019 Active morphine Morphine Unknown Drug Allergy 09/11/2019 Active Results Component Value Reference Range Notes UDT Reviewed date:01/14/2024 11:17:37 AM Interpretation: Performing Lab: Notes/Report: THC NEG 0 - 50 ng/ml Cocaine NEG 0 - 300 ng/ml Amphetamine NEG 0 - 1000 ng/ml Buprenorphine (BUP) NEG 0 - 10 ng/ml Secobarbital (Bar) NEG 0 - 300 ng/ml Oxazepam (BZO) NEG 0 - 300 ng/ml 9-tooflusddw-0,2-olszebyk-4,3-diphenylpyrrolidine (SHANNON P) NEG 0 - 300 ng/ml Methamphetamine (MET) NEG 0 - 1000 ng/ml Methylenedioxymethamphetamine (MDMA) NEG 0 - 500 ng/ml Morphine (MOP 300/[id number]) NEG 0 - 300 ng/ml Methadone (MTD) NEG 0 - 300 ng/ml Phencyclidine (PCP) NEG 0 - 25 ng/ml Nortriptyline (TCA) NEG 0 - 1000 ng/ml Oxycodone NEG 0 - 300 ng/ml x NEG 0 - 300 ng/ml Reason For Referral No Information Medications Medication SIG (Take, Route, Frequency, Duration) Notes Start Date End Date Status clonazePAM 0.5 MG TAKE 1/2 TABLET BY MOUTH ONCE DAILY for 30 03/30/2024 Active Venlafaxine HCl 37.5 MG 1 tablet with fo od Orally Once a day for 90 days taking over script Active Ubrelvy 100 MG 1 tablet as needed, may take second dose at least 2 hours after first dose up to 2 tablets per day as needed Orally Once a day Active Amitriptyline HCl 10 MG 1 tablet at bedt karli Orally Once a day for 90 days Active Riboflavin 400 MG 1 tablet Orally Once a day Active clonazePAM 0.5 MG 0.5 tablet Orally Once a day for 30 days taking over script 04/06/2024 Active Magnesium 250 MG 1 tablet with a meal Orally Once a day Active Modafinil 200 MG 1 tablet in the morning Orally Once a day Active Social History Tobacco Use: Social History Observation Description Date Details (start date - stop date) Never Smoker NA - NA Sex Assigned At : Social History Observation Description Sex Assigned At Female Tobacco Control (Standard) Question Answer Notes Tobacco use: Nonsmoker AUDIT-C (Standard) Question Answer Notes Points 3 Interpretation Positive Did you have a drink contain ing alcohol in the past year? Yes How often did you have six o r more drinks on one occasion in the past year? Never (0 point) How many drinks did you have on a typical day when you were drinking in the past year? 1 or 2 drinks (0 point) How often did you have a dri nk containing alcohol in the past year? 2 to 3 times a week (3 points) Problems Problem Type SNOMED Code ICD Code Onset Dates Problem Status W/U Status Risk Notes Problem Generalized anxiety disorder (61354946) MIRELLA (generalized anxiety disorder) (F41.1) Active confirmed Problem Mild recurrent major depression (49906065) MDD (major depressive disorder), recurrent episode, mild (F33.0) Active confirmed Problem Posttraumatic stress disorder (68335468) Chronic post-traumatic stress disorder (PTSD) (F43.12) Active confirmed Vital Signs Heart Rate 76 /min 01/14/2024 Blood pressure diastolic 83 mm Hg 01/14/2024 Weight-kg 96.98 kg 01/14/2024 Blood pressure systolic 123 mm Hg 01/14/2024 Weight 213.8 lbs 01/14/2024 Encounters Encounter Location Date Provider Diagnosis [facility] [employer] [facility] [address] [facility] [address] [facility] [address] [place] [address] 01/14/2024 Chen Juarez MDD (major depressive disorder), recurrent episode, mild F33.0 ; MIRELLA (generalized anxiety disorder) F41.1 and Chronic post-traumatic stress disorder (PTSD) F43.12 [facility] [employer] [place] [address] [facility] [address] [place] [address] 04/06/2024 Chen Pizarro MDD (major depressive disorder), recurrent episode, mild F33.0 ; MIRELLA (generalized anxiety disorder) F41.1 and Chronic post-traumatic stress disorder (PTSD) F43.12 [facility] [employer] [place] [address] [facility] [address] [facility] [address] [place] [address] 07/13/2023 Provider Migration [facility] [employer] [place] [address] [facility] [address] [address] 07/14/2023 Provider Migration Assessments Encounter Date Diagnosis (ICD Code) Assessment Notes Treatment Notes Treatment Clinical Notes Section Notes 01/14/2024 MDD (major depressive disorder), recurrent episode, mild (ICD-10 - F33.0) Amitriptyline 10mg qHS per PCP (migraines) 1. MDD stable -cont venlafaxine 37.5mg daily -cont amitriptyline 10mg qHS per neurology for migraines -cont counseling 2. MIRELLA stable -cont clonazepam 0.25mg qHS -cont buspar 5mg qd prn (pt reports this works for her on PRN basis) 3. PTSD stable -clonazepam helps to dampen intensity of nightmares, continue; could not tolerate prazosin, escitalopram worsened nightmares -cont counseling UDT done today 04/06/2024 MDD (major depressive disorder), recurrent episode, mild (ICD-10 - F33.0) Amitriptyline 10mg qHS per neurology (migraines) 01/14/2024 MIRELLA (generalized anxiety disorder) (ICD-10 - F41.1) 1. MDD stable -cont venlafaxine 37.5mg daily -cont amitriptyline 10mg qHS per neurology for migraines -cont counseling 2. MIRELLA stable -cont clonazepam 0.25mg qHS -cont buspar 5mg qd prn (pt reports this works for her on PRN basis) 3. PTSD stable -clonazepam helps to dampen intensity of nightmares, continue; could not tolerate prazosin, escitalopram worsened nightmares -cont counseling UDT done today 01/14/2024 Chronic post-traumati c stress disorder (PTSD) (ICD-10 - F43.12) 1. MDD stable -cont venlafaxine 37.5mg daily -cont amitriptyline 10mg qHS per neurology for migraines -cont counseling 2. MIRELLA stable -cont clonazepam 0.25mg qHS -cont buspar 5mg qd prn (pt reports this works for her on PRN basis) 3. PTSD stable -clonazepam helps to dampen intensity of nightmares, continue; could not tolerate prazosin, escitalopram worsened nightmares -cont counseling UDT done today 04/06/2024 MIRELLA (generalized anxiety disorder) (ICD-10 - F41.1) 04/06/2024 Chronic post-traumati c stress disorder (PTSD) (ICD-10 - F43.12) 01/14/2024 Other Stable on current medications, continue as is. Current provider retiring, seeking continued medication management. Patient educated on all medications including potential benefits, side effects, risks. Educated on proper dosing schedule and importance of compliance. Continue counseling. 1. MDD stable -cont venlafaxine 37.5mg daily -cont amitriptyline 10mg qHS per neurology for migraines -cont counseling 2. MIRELLA stable -cont clonazepam 0.25mg qHS -cont buspar 5mg qd prn (pt reports this works for her on PRN basis) 3. PTSD stable -clonazepam helps to dampen intensity of nightmares, continue; could not tolerate prazosin, escitalopram worsened nightmares -cont counseling UDT done today 04/06/2024 Other Stable, cont current medications. Refills sent in. Patient educated on all medications including potential benefits, side effects, risks. Educated on proper dosing schedule and importance of compliance. [place] PDMP report checked and consistent with prescription history, no controlled substance prescriptions from other providers. -Assessment and treatment plan reviewed with patient. -Compliance with treatment plan importance discussed. -Discussed the risks/benefits of this medication -Discussed medication side effects. -Contact office if symptoms worsen. -Discussed that it can take up to 6-8 weeks to see full therapeutic effects of psychotropic medications. -Crisis prevention hotline [phone]. Plan Of Treatment Next Appt Details Provider Name:Chen Pizarro, 07/03/2024 08:30:00 AM, [address], [address], [place], [address], Insurance Providers Payer Name Payer Address Payer Phone Subscriber Number Group Number Insured Name Patient Relationship to Insured Coverage Start Date Coverage End Date [address] [place] [address] [id number] GARTH DACOSTA Spouse - patient is the spouse of the insured [facility] [address] [address] [place] [address] [id number] BAO DACOSTA Self - patient is the insured Medical (General) History Medical History History ICD Code Problems: Chronic post-traumatic stress disorder Generalized anxiety disorder Moderate recurrent major depression , Past Psychiatric History: Anxiety Disord er,Panic Disorder,PTSD abdominal aortic aneurysm: No atrial fibrillation: No chronic fatigue syndrome: Yes essential tremor: No hyperlipidemia: No hypertension: No Parkinson's disease: No restless leg syndrome: No stroke: No subdural hematoma: No type 1 diabetes mellitus: No type 2 diabetes mellitus: No vitamin B12 deficiency: No vitamin D deficiency: No
--- OUTSIDE RECORDS SUMMARY | 2024-06-01 17:49 | XMS_ITS | Encounter Summary ---
Author Organization [facility] Health Address [address] [place] [address] Care Team Providers Care International Marketing Executive Name Role Phone Cheryl Calvin MD Unavailable [phone] Koby Shah DO Unavailable Lisa Pires MD Primary Care Provider U Sariah Eden PA-C Primary Care Provider [phone] Encounter Details Date Type Department Care Team (Late Contact Info) Description 01/01/2014 Therapy Visit EXTERNAL NON-[facility] DEPT Unknown, Provider Social History Tobacco Use Types Packs/Day Years Used Date Smoking Tobacco: Never Smokeless Tobacco: Never Alcohol Use Standard Drinks/Week Comments No 0 (1 standard drink = 0.6 oz pur e alcohol) Sex and Gender Information Value Date Recorded Sex Assigned at Not on file Gender Identity Not on file Sexual Orientation Not on file documented as of this encounter Plan of Treatment Upcoming Encounters Date Type Department Care Team (Late Contact Info) Description 09/29/2024 10:40 AM CDT Office Visit [facility] Health Neurosciences [address] [facility] [address] [place] [address] Pavan Hernandez MD [address] [facility] [address] [place], [place] [id number] documented as of this encounter Visit Diagnoses Not on filedocumented in this encounter Care Teams International Marketing Executive Relationship Specialty Start Date End Date Lisa Pires MD [address] [place] [address] PCP - General Family Medicine 04/16/23 05/25/24 Sariah Luo PA-C [address] [place] [address] PCP - General 05/26/24 Cheryl Calvin MD Orthopedic Surgery 10/31/11 Koby Shah DO Orthopedic Surgery 09/09/12 documented as of this encounter
--- OUTSIDE RECORDS SUMMARY | 2024-06-01 17:49 | XMS_ITS | Referral Summary ---
Author Organization [facility] Virtual Care Address [address] [place] [phone] Phone Care Team Providers Care Slitting And Shipping Supervisor Name Role Phone Lisa Pires MD Primary Care Provider Encounters Date Type Department Care Team Description 04/14/2024 11:30 AM MACHINE II COREMAKER Office Visit [facility] [address], [address] [place] [address] Albin Luis MD Trichiasis of left lower eyelid (Primary Dx) 04/03/2024 2:45 PM MACHINE II COREMAKER Office Visit [facility] 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] (Primary Dx); Trichiasis of left lower eyelid from Last 3 Months Allergies Active Allergy Reactions Criticality Noted Date [...] 01/30/2024 Assessment & Plan (01/30/2024 10:11 AM MACHINE II COREMAKER): -pt self reports trichiasis LLL; self-treated with epilation 2 days ago -no trichiatic lashes identified today -ed pt not to epilate lashes until appt with oculoplastics -RTC 4-6 weeks oculoplastics for eyelash electrolysis LLL 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] 11/07/2023 Assessment & Plan (01/30/2024 10:09 AM MACHINE II COREMAKER): -pt c/o ice pick pain shooting through [...] qhs OU -RTC next available cornea at [facility] -h/o complete resolution with LATIA 8.4 BCL [...] resolution of symptoms x 4 days -discussed terminal operations manager tx with a course of doxy po [...] into the office tomorrow d/t work) -discussed alf tx with a course of doxy po [...] for consideration of a referral to a occupational hygienist for a transesophageal echocardiogram as well as extended sorting livestock worker to exclude paroxysmal atrial fibrillation. In addition [...] right-sided numbness. She has been hospitalized at [facility] with what sounds to be extensive diagnostic testing completed. Medical records will be obtained for review. Anxiety 12/21/2015 Depressive disorder 12/21/2015 Migraine 02/12/2012 MIRELLA (generalized anxiety disorder) 11/11/2011 Immunizations Immunization Administration Dates Next Due Pfizer SARS-CoV-2 Monovalent Vaccination (12+ Yrs) PURPLE 08/02/2020,07/12/2020 Social History Tobacco Use Types Packs/Day Years [...] Orientation Bisexual 06/21/2020 10 :34 AM CDT Last Filed Vital Signs Vital Sign Reading [...] 07/24/2023 1:55 PM CDT Plan of Treatment Not on file Insurance [employer] [place] [employer] [place] [facility] CHOICE OOS Member Subscriber Plan / Payer (Ef fective 2022-Present) Name:OlesyaBethany maza Relation to Subscriber:Spouse Name:JUAN RAMON DACOSTA Date of :1987 (Home) Address: [address] [place] [id number] Payer ID:[id number] (NAIC) Type: [employer] Address: [address] Care Teams Slitting And Shipping Supervisor Relationship Specialty Start Date End Date Lisa Pires MD [address] [facility] [address] [place] [address] PCP - General Family Medicine 06/17/20
--- OUTSIDE RECORDS SUMMARY | 2024-06-01 17:49 | XMS_ITS | Data Portability ---
Author Organization [facility] NORMBrittany [facility] Address [address] [facility] [place] [address] Care Team Prov[address] Care Court Operations Clerk Name Role Phone LINDSAYRAINACHARITY Carbon Capture Power Plant Engineer Assessment No assessment recorded. Plan of Treatment Reminders Order Date Submit Date Provider Last Modified By Organization Details Last Modified Time Details Appointments None recorded. Lab CMP, serum or plasma 2016 017 [facility], [address] [place] [address], [facility] [address], [place], [address], 7 09:14:26 lipid panel, serum 2016 017 [facility], [address] [place] [address], [facility] [address], [place], [address], 7 09:14:25 RPR (rapid plasma reagin), serum 2016 017 [facility], [address] [place] [address], [facility] [address], [place], [address], 7 09:14:27 hepatitis panel (A+B+C), acute, serum 2016 017 [facility], [address] [place] [address], [facility] [address], [place], [address], 7 09:14:27 HIV 1+2 AB + HIV 1 p24 Ag, qualitative immunoassay , serum 2016 017 [facility], [address], [address], [place], [address], 7 09:14:27 CT + NG + TV, DNA, urine/swab 2016 017 [facility], [address], [address], [place], [address], 7 09:14:27 urinalysis, dipstick 2015 016 In-Office Order, Internal Use Only DO Not Attach Compendium DO Not Attach Compendium, Do Not Delete/merge, [id number] 6 04:29:55 Referral None recorded. Procedures None recorded. Surgeries None recorded. Imaging None recorded. Medication Orders bupropion HCl 150 mg tablet,12 hr sustained-r elease(smok ing deterrent) 2015 016 [email or web address] Not available 6 12:20:05 Patient TargetsNo targets recorded. Patient Instructions Encounter Date Encounter Id Patient Instructions Last Modified By Organization Details Last Modified Time 12/21/2015 [id number] Will sign ORLIN from Gabriel Eiwng at [facility] in [place] - last 2 office notes and recent labs Will sign ORLIN for last pap smear and labs from Charity Wolf at [facility] Patient currently does not have insurance - will do annual visit for OBGYN and IM together d/t cost annually in July - [facility] d/t cost eewig Not available 12/21/2015 18:20:39 Reason for Referral None Reported. Results Created Date Observation Date Name Description Value Unit Range Abnormal Flag Note LastModifiedBy Organization Detail LastModifiedTime 12/21/19 16 12/21/2015 urina lysis , dipst ick Leukocytes Trace Not Available In-Offi ce Order Internal Use Only DO Not Attach Compendium DO Not Attach Compendium, Do Not Delete/merge, [id number] 12/21/2015 15:31:47 12/21/19 16 12/21/2015 urina lysis , dipst ick Nitrite negati ve Not Available In-Office Order Internal Use Only DO Not Attach Compendium DO Not Attach Compendium, Do Not Delete/merge, [id number] 12/21/2015 15:31:47 12/21/19 16 12/21/2015 urina lysis , dipst ick Urobilinogen .2 Not Available In-Of fice Order Internal Use Only DO Not Attach Compendium DO Not Attach Compendium, Do Not Delete/merge, [id number] 12/21/2015 15:31:47 12/21/19 16 12/21/2015 urina lysis , dipst ick Protein Negati ve Not Available In-Office Order Internal Use Only DO Not Attach Compendium DO Not Attach Compendium, Do Not Delete/merge, [id number] 12/21/2015 15:31:47 12/21/19 16 12/21/2015 urina lysis , dipst ick pH 6.0 Not Available In-Office Order Internal Use Only DO Not Attach Compendium DO Not Attach Compendium, Do Not Delete/merge, 12/21/2015 15:31:47 12/21/19 16 12/21/2015 urina lysis , dipst ick Blood Non-He molyze d: Trace Not Available In-Office Order Internal Use Only DO Not Attach Compendium DO Not Attach Compendium, Do Not Delete/merge, [id number] 12/21/2015 15:31:47 12/21/19 16 12/21/2015 urina lysis , dipst ick Specific Lantry 1.010 Not Available In-Off ice Order Internal Use Only DO Not Attach Compendium DO Not Attach Compendium, Do Not Delete/merge, [id number] 12/21/2015 15:31:47 12/21/19 16 12/21/2015 urina lysis , dipst ick Ketone Negati ve Not Available In-Office Order Internal Use Only DO Not Attach Compendium DO Not Attach Compendium, Do Not Delete/merge, [id number] 12/21/2015 15:31:47 12/21/19 16 12/21/2015 urina lysis , dipst ick Bilirubin Negati ve Not Available In-Office Order Internal Use Only DO Not Attach Compendium DO Not Attach Compendium, Do Not Delete/merge, [id number] 12/21/2015 15:31:47 12/21/19 16 12/21/2015 urina lysis , dipst ick Glucose Negati ve Not Available In-Office Order Internal Use Only DO Not Attach Compendium DO Not Attach Compendium, Do Not Delete/merge, [id number] 12/21/2015 15:31:47 12/21/19 16 12/21/2015 urina lysis , dipst ick Appearance Clear Not Available In-Offi ce Order Internal Use Only DO Not Attach Compendium DO Not Attach Compendium, Do Not Delete/merge, [id number] 12/21/2015 15:31:47 12/21/19 16 12/21/2015 urina lysis , dipst ick Color Yellow Not Available In-Office Order Internal Use Only DO Not Attach Compendium DO Not Attach Compendium, Do Not Delete/merge, [id number] 12/21/2015 15:31:47 08/28/19 17 XR, chest , 2 view No observ ation record ed. [email or web address] Not Available 2016 12:56:18 Result Notes None recorded. Problems Name Problem SNOMED Code Status Onset Date Resolution Date Notes Provider Name and Address Organization Details Recorded Time Depressiv e disorder 20389178 Active 2015 Chitra Jaime MA null, [facility] 6 15:16:39 Anxiety 21577362 Active 2015 Chitra Jaime MA null, [place] [facility] [place] 6 15:16:50 Socialize d behavior disorder 265601988 Active 2015 Rula Coleman PA-C Attn: Accounting ,[address] [place], [address] , [facility] 6 15:44:13 Crush injury of periphera l nerve 976799944 Active 2015 cannot feel right leg from knee down unless she is lying down and then she feels like a cement block is on it - has seen neurology, PT, pain management - would rather just deal with it Rula Coleman PA-C Attn: Accounting ,[address] [place], [address] , [facility] 6 15:54:56 Generaliz ed anxiety disorder 53740940 Active 2015 Rula Coleman PA-C Attn: Accounting ,[address] [place], [address] , [facility] 6 15:56:28 Overweigh t 446621299 Active 2016 Rula Coleman PA-C Attn: Accounting ,[address] [place], [address] , [facility] 7 11:13:44 Problem Notes None recorded. Procedures Surgical History Date Name Laterality Status Provider Name and Address Organization Details Recorded Time 08/05/19 15 Tonsillectomy completed Rula Coleman PA-C Attn: Accounting, [place], [address], [facility] 12/21/2015 16:08:27 02/25/19 14 Dilation and Curettage completed Chitra Jaime MA [facility] 12/21/2015 15:19:22 Imaging Results Imaging Date Name Status LastModified by Organiz ation Details LastModified Time 08/27/2016 XR, chest, 2 view completed [email or web address] Information not available 08/29/2016 12:56:18 Procedure Notes None recorded. Medical Equipment None Reported. Allergies Allergen ID Allergen Name Allergen Category Reaction Reaction Severity Criticality Documentation Date Start Date Code Code System Note Provider Name and Address Organization Details Recorded Time 25544 morphine medicatio n other severe Not available 12/21/2015 7052 RxNorm Not Available Not Available Not Available 22622 Celexa medicatio n vomiting Not available Not available 12/21/2015 95697 8 RxNorm Not Available Not Available Not Available 79881 latex environme nt,medica tion rash Not available Not available 12/21/2015 64775 91 RxNorm Not Available Not Available Not Available 08534 adhesive environme nt,medica tion photosens itivity Not available Not available 12/21/2015 83223 UNK Not Available Not Available Not Available [...] Details Last Updated DateTime 6 168.91 cm 24425.3 6 g 25.8 kg/m2 91 /min 20 /min 98.7 [degF] 92 mm[Hg] 72 mm[Hg] Chitra Jaime MA [facility] 6 15:13:58 Date Recorded Body height Body weight Body mass index (BMI) Heart rate Respiratory rate Body temperature Systolic blood pressure Diastolic blood pressure Provider Name and Address Organization Details Last Updated DateTime 7 168.91 cm 19408.5 6 g 25.9 kg/m2 76 /min 18 /min 98.1 [degF] 100 mm[Hg] 60 mm[Hg] Jose Xie [facility] 7 09:05:42 Social History Question Answer Notes LastModified by Organizat ion Details LastModified Time Tobacco Smoking Status Never Smoker Chitra Jaime MA [facility], [facility] 12/21/2015 15:18:05 Do You Have An Advance [...] not available 12/21/2015 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 Obstetrics History GPAL:G 0 P 0 0 0 0 Immunizations Vaccine Type Date Status Note Provider Nam e and Address Organization Details Recorded Time Influenza, split virus, quadrivalent, preservative 6 completed Not Available [facility] 03/14/2019 02:32:36 Past Encounters Encounter ID Performer Location Encounter Start Date Encounter Closed Date Diagnosis/Indication Diagnosis SNOMED-CT Code Diagnosis ICD10 Code Diagnosis Note [id number] JOYCE Mckeon (Adult Med) [address] [place] [id number] 12/21/2015 14:48:02 12/21/2015 17:59:29 Depressive disorder 92885500 F33.8 Per patient, well controlled with Wellbutrin 150mg SRWill continue Anxiety 87191404 F41.9 Adult heal th examination 271462827 Z00.01 30YO female here to establish care. Only complaints are depression and anxiety Active or passive immunization 958132226 Z23 [id number] JOYCE Mckeon (Adult Med) [address] [place] [id number] 07/18/2016 08:33:47 07/18/2016 17:35:30 Overweight 327220332 E66.3 Advised 30 minutes of exercise 5 days/week Advised to not drink her calories Advised 3 balanced meals/day with plenty of fruits and vegtables Venereal d isease screening 129065285 Z11.3 Depressive disorder 3548 9007 F33.8 d/w wellbutrin Advised that if she feels like things change to make an appointmen tAdvised she can make a counseling or psych appointmen t at the front here without seeing me for a referral; however, she states that she feels great at this time Generalize d anxiety disorder 70291284 F41.1 d/w wellbutrin Advised that if she [...] *SELF PAY* Jimmy land Olesya 07/18/2016 1 [facility] [id number] Juan Ramon Olesya [id number] Bethany Olesya Notes Date Note Type Note Provider Name and Address Organization Details Recorded Time 12/21/2015 text/html Here to [facility]. Only complaints are anxiety/depressio n Rula Coleman PA-C Attn: Accounting,[address] [place], [address], [facility] 12/21/2015 18:21:25 07/18/2016 text/html 31YO female here [...] have tonsils. Rula Coleman PA-C Attn: Accounting,[address] [place], [address], [facility] 07/18/2016 11:15:18 OBGyn Episode No OBEpisode recorded.
--- OUTSIDE RECORDS SUMMARY | 2024-06-01 17:50 | XMS_ITS | Clinical Summary ---
Author Organization [facility] Address [address] [place] [address] Care Team Providers Care Client Insights Consultant Name Role Phone Cheryl Calvin MD Unavailable [phone] Koby Shah DO Unavailable Sariah Luo PA-C Primary Care Provider [phone] Source Comments [facility],non-owned Affiliates and Associated Physician Practices is amultiple site organization consisting of ambulatory clinics and hospital sitesin [place], [place], [place] and [place]. This disclosure is being madepursuant to the Care Everywhere program and may not contain all information available regarding this patient. Last updated 17.[facility] Allergies Active Allergy Reactions Criticality Noted Date Comments Adhesive Sensitivity 10/10/2011 Citalopram Nausea and/or Vomiting 06/02/2014 Hydrocodone Itching 04/16/2023 Latex 10/10/2011 Morphine 08/20/2013 Seizure Medications * Be aware that medications may not be up to date on this document. Alwaysverify current medications with the patient. Medication Sig Dispensed Refills Start Date End Date Status busPIRone (Buspar) 5 MG tablet Active clonazePAM (KlonoPIN) 0.5 MG tablet 03/29/2023 Active Magnesium 400 MG Active Roxbury-3 1000 MG Active venlafaxine (Effexor) 37.5 MG tablet Take 1 (one) tablet by mouth 2 times daily 03/29/2023 Active Multiple Vitamins-Minerals (CENTRUM WOMEN PO) Active riboflavin 400 MG capsule Take 1 (one) capsule by mouth once daily 100 capsule 6 05/20/2023 Active clindamycin (Cleocin) 1 % lotion APPLY TOPICALLY TO FACE EVERY MORNING 07/04/2023 Active clobetasol (Temovate) 0.05 % ointment APPLY TO THE AFFECTED AREA ON HANDS TWICE A DAY NEEDED 07/04/2023 Active doxycycline monohydrate 50 MG capsule TAKE 1 CAPSULE BY MOUTH TWICE DAILY WITH FOOD AND WATER 07/04/2023 Active amitriptyline (Elavil) 10 MG tablet Take 1 (one) tablet by mouth every evening 90 tablet 4 10/17/2023 Active ubrogepant (Ubrelvy) 100 MG tabletIndications:Chr onic nonintractable headache, unspecified headache type Take 1 (one) tablet by mouth daily as needed - may repeat one time for Migraine No more than 2 doses in 24 hours. 8 tablet 3 04/14/2024 Active sodium chloride, hypertonic, (Patti 128) 5 % Apply 1/4 inch into both eyes at night 04/03/2024 Active aspirin EC (Ecotrin) 81 MG tablet Take 1 (one) tablet by mouth once daily Active Active Problems Problem Noted Date Diagnosed Date Onychomycosis 07/22/2013 Thoracic back pain 07/02/2012 Migraine 02/12/2012 MIRELLA (generalized anxiety disorder) 11/11/2011 Panic disorder 11/11/2011 Encounters Date Type Department Care Team Description 05/26/2024 9:20 AM CDT Office Visit [address] [address] Pavan Hernandez MD Chronic nonintractable headache, unspecified headache type (Primary Dx); Balance disorder; Pain around right eye; Medication side effects from Last 3 Months Immunizations Name Administration Dates Next Due INFLUENZA VACCINE 12/06/2011 Family History Medical History Relation Name Comments Cancer Maternal Grandmother breast and cervical Diabetes Paternal Grandfather Relation Name Status Comments Brother Alive Father Alive Maternal Grandmother Mother Alive Paternal Grandfather Sister Alive Social History Tobacco Use Types Packs/Day Years Used Date Smoking Tobacco: Never Smokeless Tobacco: Never Tobacco Cessation:Counseling Given: Yes Alcohol Use Standard Drinks/Week Comments No 0 (1 standard drink = 0.6 oz pur e alcohol) Sex and Gender Information Value Date Recorded Sex Assigned at Not on file Gender Identity Not on file Sexual Orientation Not on file Last Filed Vital Signs Vital Sign Reading Time Taken Comments Blood Pressure 110/68 05/26/2024 10:03 AM CDT Pulse 87 05/26/2024 10:03 AM CDT Temperature 36.6 C (97.8 F) 05/26/2024 10:03 AM CDT Respiratory Rate 16 12/21/2013 8:16 AM CDT Oxygen Saturation 99% 05/26/2024 10:03 AM CDT Inhaled Oxygen Concentration - - Weight 96.6 kg (213 lb) 05/26/2024 10:03 AM CDT Height 167.6 cm (5' 6 ) 05/26/2024 10:03 AM CDT Body Mass Index 34.38 05/26/2024 10:03 AM CDT Plan of Treatment Upcoming Encounters Date Type Department Care Team (Late st Contact Info) Description 09/29/2024 10:40 AM CDT Office Visit [facility] [address] [place], [place] [id number] Pavan Hernandez MD [address] [place] [address] Health Maintenance Due Date Last Done Comments HIV SCREENING 05/02/2002 HEPATITIS C SCREENING 04/28/2005 DTAP/TDAP/TD VACCINES (1 - Tdap) 05/02/2006 HEPATITIS B VACCINE (1 of 3 - 19+ 3-dose series) 05/02/2006 PAP SMEAR 07/26/2014 07/27/2011 COVID-19 VACCINE (3 - 2023-2 5 season) 2023 08/02/2020, 07/12/2020 DEPRESSION SCREENING 02/26/2024 INFLUENZA VACCINE (Season Ended) 2024 12/21/2015, 12/06/2011 ZOSTER VACCINE (1 of 2) 05/02/2037 HIB VACCINE Aged Out No longer eligi ble based on patient's age to complete this topic HPV VACCINE Aged Out No longer eligi ble based on patient's age to complete this topic MENINGOCOCCAL (Group B) VACCINE SHARED DECISION-MAKING Aged Out No longer eligible based on patient's age to complete this topic MENINGOCOCCAL GROUPS A/C/Y/W VACCINE Aged Out No longer eligible b ased on patient's age to complete this topic PNEUMOCOCCAL VACCINE Aged Out No long er eligible based on patient's age to complete this topic Care Teams Client Insights Consultant Relationship Specialty Start Date End Date Sariah Luo PA-C [address], [facility] [address] [place] [address] PCP - General 05/26/24 Cheryl Calvin MD Orthopedic Surgery 10/31/11 Koby Shah DO Orthopedic Surgery 09/09/12
--- OUTSIDE RECORDS SUMMARY | 2024-06-01 17:50 | XMS_ITS | Clinical Summary ---
Author Organization [facility] Address [address] [place] [id number] Care Team Providers Care Fish Net Stringer Name Role Phone Lisa Pires MD Primary Care Provider [phone] Social History Tobacco Use Types Packs/Day Years Used Date Smoking Tobacco: Never Assessed Comments Unknown Sex and Gender Information Value Date Recorded Sex Assigned at Not on file Legal Sex Female 2:57 PM CDT Gender Identity Not on file Sexual Orientation Not on file Plan of Treatment Health Maintenance Due Date Last Done Comments Cervical Cancer Screening Pa p Smear (Age 30 to 64) Every 3 Years 1987 Annual Physical 05/02/1990 Hepatitis C 05/02/2005 DTaP, Tdap and Td Vaccines ( 1 - Tdap) 05/02/2006 Hepatitis B Vaccines (1 of 3 - 19+ 3-dose series) 05/02/2006 Cervical Cancer Screening Pa p with HPV Testing (Age 30 to 64) Every 5 Years 05/02/2017 Cervical Cancer Screening [facility] HPV 05/02/2017 COVID-19 Vaccine ( - 2023-2 5 season) 2023 08/02/2020, 07/12/2020 HPV Vaccines Aged Out No longer eligi ble based on patient's age to complete this topic Meningococcal B Vaccine Aged Out No l onger eligible based on patient's age to complete this topic Meningococcal Vaccine Aged Out No rhys micky eligible based on patient's age to complete this topic Pneumococcal Vaccine: Pediatrics (0 to 5 Years) and At-Risk Patients (6 to 64 Years) Aged Out No longer eligible b ased on patient's age to complete this topic RSV Immunizations Under 20 Months Aged Out No longer eligible b ased on patient's age to complete this topic Insurance Member Subscriber Plan / Payer (Ef fective 2021-Present) Name:Bethany Dacosta V Relation to Subscriber:Self Name:Bethany Dacosta V Payer ID:Not on file Type:Not on file Address: [address] [place] [id number] [employer] Care Teams Fish Net Stringer Relationship Specialty Start Date End Date Lisa Pires MD [address] [facility] [address] [email or web address] [address] [place] [address] PCP - General FAMILY PRACTICE 12/26/21
--- OUTSIDE RECORDS SUMMARY | 2024-06-01 17:50 | XMS_ITS ---
Author Organization [facility] Address [facility] Reese Mckenzie [address] [id number] Care Team Providers Care Behavioral Health Care Coordinator Name Role Phone Gabriel Ewing Primary Care Provider Pollo Thompson Unavailable [phone] Migration, Provider Unavailable Unavailable Allergies Allergen (clinical drug ingredient) Drug/Non Drug Allergy documented on EMR Reaction Allergy Type Onset Date Status morphine Morphine convulsions/loss of consciousness Drug Allergy Active REASON FOR VISIT Multum To Medispan Conversion Encounter Medications Medication SIG (Take, Route, Frequency, Duration) Notes Start Date End Date Status buPROPion HCl ER (SR) 150 MG 1 tab(s) orally 2 times a day Active Encounters Encounter Location Date Provider Diagnosis [facility] [place] [address] [address] [id number] 02/08/2024 Provider Migration Plan Of Treatment No Information Progress Notes * Bethany DACOSTADOB:1985 (39 yo F)Acc No.[id number]:02/08/2024 Patient: Bethany SANTIAGO Provider: Coy matamoros Migration :1985 A ge:38 Y S ex:Female Date:02/08/2024 Address:[address] [place], [place] [id number] Pcp:Gabriel Ewing Subjective: * Chief Complaints: * 1 . Multum To Medispan Conversion Encounter. * Medical History: * Medications: T aking buPROPion HCl ER (SR) 150 MG Tablet Extended Release 12 Hour 1 tab(s) orally 2 times a day * Allergies: M orphine: convulsions/loss of consciousness - Allergy. Objective: * Vitals: * Physical Examination: Assessment: Plan: * Treatment: * * Electronic signature of Prov ider Migration on 06/01/2024 at 05:50 PM CDT Sign off status: Pending * Provider: Coy matamoros Migration Date: 1 04/10/2023 Generated for Gagan morrell/Ruby/Carmen on: 0 06/01/2024 05:50 PM CDT
--- OUTSIDE RECORDS SUMMARY | 2024-06-01 17:50 | XMS_ITS | Patient Health Record ---
Author Organization [facility] Address [address] [facility] [address] [place], [place] [id number] Care Team Providers Care Gang Supervisor Pipe Lines Name Role Phone Gabriel Ewing Primary Care Provider Pollo Thompson Unavailable [phone] Migration, Provider Unavailable Unavailable Allergies Allergen (clinical drug ingredient) Drug/Non Drug Allergy documented on EMR Reaction Allergy Type Onset Date Status morphine Morphine convulsions/loss of consciousness Drug Allergy Active Reason For Referral No Information Medications Medication SIG (Take, Route, Frequency, Duration) Notes Start Date End Date Status buPROPion HCl ER (SR) 150 MG 1 tab(s) orally 2 times a day Active Encounters Encounter Location Date Provider Diagnosis [facility] [place] [address] [address] [facility] [address] [place], [place] [id number] 02/08/2024 Provider Migration Plan Of Treatment No Information Insurance Providers Payer Name Payer Address Payer Phone Subscriber Number Group Number Insured Name Patient Relationship to Insured Coverage Start Date Coverage End Date Radha [facility] [id number] [place] [address] [id number] Bethany Dacosta Self - patient is the insured Medical (General) History Medical History History ICD Code Pertinent Medical History: Other,
[2024-06-01 18:04] LABS: Prothrombin Time 13.5 Seconds (11.1-14.7)
[2024-06-01 18:05] LABS: Alanine Aminotransferase 16 U/L (6-35); Albumin Level 4.5 g/dL (3.5-5.1); Alkaline Phosphatase 78 U/L (38-126); Anion Gap 9 mmol/L (4-12); Aspartate Amino Transferase 21 U/L (14-36); Bilirubin,Total 0.3 mg/dL (0.2-1.3); Blood Urea Nitrogen 13 mg/dL (7-17); Calcium 9.3 mg/dL (8.4-10.2); Carbon Dioxide 27 mmol/L (22-30); Chloride 103 mmol/L (98-107); Estimated CRCL calculation 90 ml/min; Estimated Glomerular Filt Rate > 60; Glucose 99 mg/dL (65-110); Lipase 68 U/L (23-300); Partial Thromboplastin Time 32.2 Seconds (22.3-36.8); Sodium 139 mmol/L (137-145)
[2024-06-01 18:15] LABS: Troponin I < 0.012 ng/mL (0.000-0.034)
[2024-06-01 18:30] VITALS: BP 129/90; PULSE 84; RESP 18; O2SAT 100
--- OUTSIDE RECORDS SUMMARY | 2024-06-01 18:49 | XMS_ITS | Encounter Summary ---
Author Organization [facility] Address [address] [place] [address] Care Team Providers Care Airport Operations Coordinator Name Role Phone Cheryl Calvin MD Unavailable [phone] Koby Shah DO Unavailable Lisa Pires MD Primary Care Provider U Sariah Eden PA-C Primary Care Provider [phone] Encounter Details Date Type Department Care Team (Late Contact Info) Description 01/01/2014 Therapy Visit EXTERNAL NON-[facility] DEPT Unknown, Provider Social History Tobacco [...] Description 09/29/2024 10:40 AM CDT Office Visit [facility] Neurosciences [address] [facility] [address] [place] [address] Pavan Hernandez MD [address] [facility] [address] [place], [place] [id number] documented as of this encounter Visit Diagnoses Not on filedocumented in this encounter Care Teams Airport Operations Coordinator Relationship Specialty Start Date End Date Lisa Pires MD [address] [place] [address] PCP - General Family Medicine 04/16/23 05/25/24 Sariah Luo PA-C [address] [place] [address] PCP - General 05/26/24 Cheryl Calvin MD Orthopedic Surgery 10/31/11 Koby Shah DO Orthopedic Surgery 09/09/12 documented as of this encounter
--- OUTSIDE RECORDS SUMMARY | 2024-06-01 18:49 | XMS_ITS | Referral Summary ---
Author Organization [facility] Address [address] [place] [phone] Phone Care Team Providers Care Bulk Plant Agent Name Role Phone Lisa Pires MD Primary Care Provider Encounters Date Type Department Care Team Description 04/14/2024 11:30 AM CARCASS TRIMMER Office Visit [facility] Ophthalmology [address], [address] [place] [address] Albin Luis MD Trichiasis of left lower eyelid (Primary Dx) 04/03/2024 2:45 PM CARCASS TRIMMER Office Visit [facility] Ophthalmology 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] 11/07/2023 Assessment & Plan (01/30/2024 10:09 AM CARCASS TRIMMER): -pt c/o ice pick pain shooting through [...] qhs OU -RTC next available cornea at [facility] -h/o complete resolution with LATIA 8.4 BCL [...] resolution of symptoms x 4 days -discussed joint terminal attack controller tx with a course of doxy po [...] into the office tomorrow d/t work) -discussed prison tx with a course of doxy po [...] for consideration of a referral to a american sign language interpreter for a transesophageal echocardiogram as well as extended cardiac cath rn to exclude paroxysmal atrial fibrillation. In addition [...] right-sided numbness. She has been hospitalized at [facility] with what sounds to be extensive [...] Plan of Treatment Not on file [place] [facility] CHO[facility] OOS Member Subscriber Plan / Payer (Ef fective 2022-Present) Name:OlesyaBethany maza Relation to Subscriber:Spouse Name:JUAN RAMON DACOSTA Date of :1987 (Home) Address: [address] [place] [id number] Payer ID:[id number] (NAIC) Type: ALLIANCE Address: [address] Care Teams Bulk Plant Agent Relationship Specialty Start Date End Date Lisa Pires MD [address] [facility] [address] [place] [address] PCP - General Family Medicine 06/17/20
--- OUTSIDE RECORDS SUMMARY | 2024-06-01 18:49 | XMS_ITS | Clinical Summary ---
Author Organization [facility] Address [address] [place] [address] Care Team Providers Care Telemarketing Fundraiser Name Role Phone Lisa Pires MD Primary Care Provider [phone] Social History Tobacco Use Types Packs/Day Years [...] Every 5 Years 05/02/2017 Cervical Cancer Screening [facility] HPV 05/02/2017 COVID-19 Vaccine ( - 2023-2 [...] file Type:Not on file Address: [address] [place] [phone] [email or web address] Care Teams Telemarketing Fundraiser Relationship Specialty Start Date End Date Lisa Pires MD [address] [facility] [address] [facility] 120 [place] [address] PCP - General FAMILY PRACTICE 12/26/21
--- OUTSIDE RECORDS SUMMARY | 2024-06-01 18:49 | XMS_ITS | Clinical Summary ---
Author Organization 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 In addition [...] right-sided numbness. She has been hospitalized at [facility] with what sounds to be extensive diagnostic testing completed. Medical records will be obtained for review. Anxiety 12/21/2015 Depressive disorder 12/21/2015 Migraine 02/12/2012 MIRELLA (generalized anxiety disorder) 11/11/2011 Encounters Date Type Department Care Team Description 04/14/2024 11:30 AM LAB INSTRUCTOR Office Visit [facility] Ophthalmology [address] [address], [address] [place] [address] Albin Luis MD Trichiasis of left lower eyelid (Primary Dx) 04/03/2024 2:45 PM LAB INSTRUCTOR Office Visit [facility] Ophthalmology [address] [address], [address] [place] [address] Meggan Devine MD PhD Anterior basement membrane [...] patient's age to complete this topic Insurance [employer] [place] [employer] [place] [facility] CHOICE OOS [facility] Care Teams Assembler Engine Relationship Specialty Start Date End Date Lisa Pires MD [address] [facility] 120 [place] [address] PCP - General Family Medicine 06/17/20
--- OUTSIDE RECORDS SUMMARY | 2024-06-01 18:49 | XMS_ITS | Clinical Summary ---
Author Organization [facility] Address [address] [facility] [place] [address] Care Team Providers Care Clay Plant Treater Name Role Phone Cheryl Calvin MD Unavailable [phone] Koby Shah DO Unavailable Sariah Luo PA-C Primary Care Provider [phone] Source Comments [facility],non-owned Affiliates and Associated Physician Practices is amultiple site organization consisting of ambulatory clinics and hospital sitesin [place], [place], [place] and [place]. This disclosure is being madepursuant to the Care Everywhere program and may not contain all information available regarding this patient. Last updated 17.[facility] Allergies Active Allergy Reactions Criticality Noted Date [...] tablet 03/29/2023 Active Magnesium 400 MG Active Calypso-3 1000 MG Active venlafaxine (Effexor) 37.5 MG [...] Description 05/26/2024 9:20 AM CDT Office Visit [address] [address] Pavan Hernandez MD Chronic nonintractable headache, unspecified [...] Description 09/29/2024 10:40 AM CDT Office Visit [facility] Health Neurosciences [address] [facility] [address] [address] [place], [place] [phone] Pavan Hernandez MD [address] [place] [address] Health Maintenance Due Date Last Done Comments [...] age to complete this topic Care Teams Clay Plant Treater Relationship Specialty Start Date End Date Sariah Luo PA-C [address], [facility] [address] [place] [address] PCP - General 05/26/24 Cheryl Calvin MD Orthopedic Surgery 10/31/11 Koby Shah DO Orthopedic Surgery 09/09/12
--- NOTE | 2024-06-01 18:51 | ECG_ITS ---
Test Date: 2024-06-01 19:36:31 Measurements Intervals [place] Rate: 72 P: 40 TX: 131 QRS: 42 QRSD: 94 T: 32 QT: 402 QTc: 443 Interpretive Statements SINUS RHYTHM INCOMPLETE RIGHT BUNDLE BRANCH BLOCK MINIMAL Q WAVES- INF/HIGH LAT LEADS BORDERLINE ECG Compared to ECG 06/01/2024 16:13:16 NO SIGNIFICANT CHANGE Electronically Signed On 06-01-2024 19:36:29 CDT by Damir Balderas D.O.
[2024-06-01 19:27] VITALS: BP 108/81; PULSE 74; PULSE 75; RESP 15; O2SAT 100
[2024-06-01 19:28] VITALS: O2SAT 100
[2024-06-01 20:22] LABS: Troponin I < 0.012 ng/mL (0.000-0.034)
[2024-06-01 20:46] VITALS: BP 115/78; PULSE 88; RESP 15; O2SAT 98
== END 2024-06-01 20:47 | disposition home or self-care (01) ==
PROVIDERS: Emergency Medicine; Emergency Provider Family Medicine; PCP Physician Assistant
DX: R07.89 Other chest pain (principal); G47.33 Obstructive sleep apnea (adult) (pediatric); F43.10 Post-traumatic stress disorder, unspecified; Z86.2 Personal history of diseases of the blood and blood-forming organs and certain disorders involving the immune mechanism; Z79.899 Other long term (current) drug therapy; I45.10 Unspecified right bundle-branch block
CPT/HCPCS: 36415; 71046; 80053; 83690; 84484; 85025; 85610; 85730; 93005; 99284

== ENCOUNTER 2024-06-07 19:39 | Emergency (ER) | payer BC, OTHER, SELFPAY ==
--- NOTE | ~2024-06-07 | CT_ITS ---
Clinical Indication: Shortness of breath CT Scan of the Chest with Contrast: Technique: Contiguous sections were acquired throughout the chest after intravenous administration of 100 cc of Omnipaque 350. Dose reduction technique was used on this scan by utilizing automated expos ure control and iterative reconstruction technique. The dose-length product (DLP) was 410.07 mGy-cm. Findings: There is no evidence of any significant mediastinal, hilar or axillary lymphadenopathy. There is no f illing defect in the pulmonary arterial tree to suggest pulmonary embolus. There is no evidence of ao rtic dissection or aneurysm. There is no evidence of pleural or pericardial effusion. The lungs are clear. No pulmonary nodules or infiltrates are noted. Images through the upper abdomen reveal no abnormalities. Impression: No evidence of pulmonary embolus, aortic dissection, or aortic aneurysm. Clear lungs. Reviewed, dictated and finalized at [facility]. Impression: No evidence of pulmonary embolus, aortic dissection, or aortic aneurysm. Clear lungs.
--- NOTE | ~2024-06-07 | XR_ITS ---
EXAMINATION: XR chest 2V Exam Date/Time: 06/07/2024 21:34 CDT HISTORY: sob Comparison: 06/01/2024. RESULT: Lines, tubes, and devices: None. Lungs and pleura: Clear. Cardiomediastinal silhouette: Stable. Other: No acute osseous or upper abdominal finding. IMPRESSION: No acute cardiopulmonary process. Reviewed, dictated and finalized at location K.
[2024-06-07 19:41] VITALS: BP 122/76; PULSE 115; RESP 20; TEMP 37.1; O2SAT 100
--- OUTSIDE RECORDS SUMMARY | 2024-06-07 19:43 | XMS_ITS | Patient Health Record ---
Author Organization [facility] Address [address] [facility] [address] [place], [place] [id number] Care Team Providers Care Security Systems Technician Name Role Phone Gabriel Ewing Primary Care Provider Pollo Thompson Unavailable [phone] Migration, Provider Unavailable Unavailable Allergies Allergen (clinical [...] Date Provider Diagnosis [facility] [place] [address] [address] [facility] [address] [place], [place] [phone] 02/08/2024 Provider Migration Plan Of Treatment No Information Insurance Providers Payer Name Payer Address Payer Phone Subscriber Number Group Number Insured Name Patient Relationship to Insured Coverage Start Date Coverage End Date Radha [facility] [address] [place] [address] [id number] Bethany Dacosta Self - patient is the insured Medical (General) History Medical History History ICD Code Pertinent Medical History: Other,
--- OUTSIDE RECORDS SUMMARY | 2024-06-07 19:43 | XMS_ITS | Data Portability ---
Author Organization [facility] NORMBrittany [facility] Address [address] [place] [address] Care Team Providers Care Inspector Wire Products Name Role Phone LINDSAYRAINACHARITY Distance Learning Administrator Assessment No assessment recorded. Plan of Treatment Reminders Order Date Submit Date Provider Last Modified By Organization Details Last Modified Time Details Appointments None recorded. Lab CMP, serum or plasma 2016 017 [facility], [address] [place] [address], [facility] [address], [place], [address], 7 09:14:26 lipid panel, serum 2016 017 [facility], [address] [place] [address], [place] [address], [place], [address], 7 09:14:25 RPR (rapid plasma reagin), serum 2016 017 [facility], [address] [place] [address], [facility] [address], [place], [address], 7 09:14:27 hepatitis panel (A+B+C), acute, serum 2016 017 [facility], [address] [place] [address], [facility] [address], [place], [address], 7 09:14:27 HIV 1+2 AB + HIV 1 p24 Ag, qualitative immunoassay , serum 2016 017 [facility], [address], [address], [place], [address], 7 09:14:27 CT + NG + TV, DNA, urine/swab 2016 017 [facility], [address], [address], [place], [address], 7 09:14:27 urinalysis, dipstick 2015 016 In-Office Order, Internal Use Only DO Not Attach Compendium DO Not Attach Compendium, Do Not Delete/merge, [id number] 6 04:29:55 Referral None recorded. Procedures None recorded. Surgeries None recorded. Imaging None recorded. Medication Orders bupropion HCl 150 mg tablet,12 hr sustained-r elease(smok ing deterrent) 2015 016 [email or web address] Not available 6 12:20:05 Patient TargetsNo targets recorded. Patient Instructions Encounter Date Encounter Id Patient Instructions Last Modified By Organization Details Last Modified Time 12/21/2015 [id number] Will sign ORLIN from Gabriel Ewing at [facility] in [place] - last 2 office notes and recent labs Will sign ORLIN for last pap smear and labs from Charity Wolf at [facility] Patient currently does not have insurance - will do annual visit for OBGYN and IM together d/t cost annually in July - she is switching to [facility] for both OBGYN and IM d/t [...] DO Not Attach Compendium, Do Not Delete/merge, [id number] 12/21/2015 15:31:47 12/21/19 16 12/21/2015 urina lysis , dipst ick Nitrite negati ve Not Available In-Office Order Internal Use Only DO Not Attach Compendium DO Not Attach Compendium, Do Not Delete/merge, [id number] 12/21/2015 15:31:47 12/21/19 16 12/21/2015 urina lysis , dipst ick Urobilinogen .2 Not Available In-Of fice Order Internal Use Only DO Not Attach Compendium DO Not Attach Compendium, Do Not Delete/merge, [id number] 12/21/2015 15:31:47 12/21/19 16 12/21/2015 urina lysis , dipst ick Protein Negati ve Not Available In-Office Order Internal Use Only DO Not Attach Compendium DO Not Attach Compendium, Do Not Delete/merge, [id number] 12/21/2015 15:31:47 12/21/19 16 12/21/2015 urina lysis , dipst ick pH 6.0 Not Available In-Office Order Internal Use Only DO Not Attach Compendium DO Not Attach Compendium, Do Not Delete/merge, 12/21/2015 15:31:47 12/21/19 16 12/21/2015 urina lysis , dipst ick Blood Non-He molyze d: Trace Not Available In-Office Order Internal Use Only DO Not Attach Compendium DO Not Attach Compendium, Do Not Delete/merge, [id number] 12/21/2015 15:31:47 12/21/19 16 12/21/2015 urina lysis , dipst ick Specific [place] 1.010 Not Available In-Off ice Order Internal Use Only DO Not Attach Compendium DO Not Attach Compendium, Do Not Delete/merge, [id number] 12/21/2015 15:31:47 12/21/19 16 12/21/2015 urina lysis , dipst ick Ketone Negati ve Not Available In-Office Order Internal Use Only DO Not Attach Compendium DO Not Attach Compendium, Do Not Delete/merge, [id number] 12/21/2015 15:31:47 12/21/19 16 12/21/2015 urina lysis , dipst ick Bilirubin Negati ve Not Available In-Office Order Internal Use Only DO Not Attach Compendium DO Not Attach Compendium, Do Not Delete/merge, [id number] 12/21/2015 15:31:47 12/21/19 16 12/21/2015 urina lysis , dipst ick Glucose Negati ve Not Available In-Office Order Internal Use Only DO Not Attach Compendium DO Not Attach Compendium, Do Not Delete/merge, [id number] 12/21/2015 15:31:47 12/21/19 16 12/21/2015 urina lysis , dipst ick Appearance Clear Not Available In-Offi ce Order Internal Use Only DO Not Attach Compendium DO Not Attach Compendium, Do Not Delete/merge, [id number] 12/21/2015 15:31:47 12/21/19 16 12/21/2015 urina lysis , dipst ick Color Yellow Not Available In-Office Order Internal Use Only DO Not Attach Compendium DO Not Attach Compendium, Do Not Delete/merge, [id number] 12/21/2015 15:31:47 08/28/19 17 XR, chest , 2 view No observ ation record ed. [email or web address] Not Available 2016 12:56:18 Result Notes None recorded. Problems Name Problem SNOMED Code Status Onset Date Resolution Date Notes Provider Name and Address Organization Details Recorded Time Depressiv e disorder 12235022 Active 2015 Chitra Jaime MA null, [facility] 6 15:16:39 Anxiety 16767866 Active 2015 Chitra Jaime MA null, [place] [facility] 6 15:16:50 Socialize d behavior disorder 743113710 Active 2015 Rula Coleman PA-C Attn: Accounting ,[address] [place], [address] , [facility] 6 15:44:13 Crush injury of periphera l nerve 489998878 Active 2015 cannot feel right leg from knee down unless she is lying down and then she feels like a cement block is on it - has seen neurology, PT, pain management - would rather just deal with it Rula Coleman PA-C Attn: Accounting ,[address] [place], [address] , [facility] 6 15:54:56 Generaliz ed anxiety disorder 55327680 Active 2015 Rula Coleman PA-C Attn: Accounting ,[address] [place], [address] , [facility] 6 15:56:28 Overweigh t 180552283 Active 2016 Rula Coleman PA-C Attn: Accounting ,[address] [place], [address] , [facility] 7 11:13:44 Problem Notes None recorded. Procedures Surgical History Date Name Laterality Status Provider Name and Address Organization Details Recorded Time 08/05/19 15 Tonsillectomy completed Rula Coleman PA-C Attn: Accounting, [place], [address], [facility] 12/21/2015 16:08:27 02/25/19 14 Dilation and Curettage completed Chitra Jaime MA [facility] 12/21/2015 15:19:22 Imaging Results Imaging Date Name Status LastModified by Organiz ation Details LastModified Time 08/27/2016 XR, chest, 2 view completed [email or web address] Information not available 08/29/2016 12:56:18 Procedure Notes None recorded. Medical Equipment None Reported. Allergies Allergen ID Allergen Name Allergen Category Reaction Reaction Severity Criticality Documentation Date Start Date Code Code System Note Provider Name and Address Organization Details Recorded Time 67377 morphine medicatio n other severe Not available 12/21/2015 7052 RxNorm Not Available Not Available Not Available 37593 Celexa medicatio n vomiting Not available Not available 12/21/2015 49199 8 RxNorm Not Available Not Available Not Available 13100 latex environme nt,medica tion rash Not available Not available 12/21/2015 49080 91 RxNorm Not Available Not Available Not Available 15281 adhesive environme nt,medica tion photosens itivity Not available Not available 12/21/2015 16017 UNK Not Available Not Available Not Available [...] Details Last Updated DateTime 6 168.91 cm 61349.3 6 g 25.8 kg/m2 91 /min 20 /min 98.7 [degF] 92 mm[Hg] 72 mm[Hg] Chitra Jaime MA [facility] 6 15:13:58 Date Recorded Body height Body weight Body mass index (BMI) Heart rate Respiratory rate Body temperature Systolic blood pressure Diastolic blood pressure Provider Name and Address Organization Details Last Updated DateTime 7 168.91 cm 94677.5 6 g 25.9 kg/m2 76 /min 18 /min 98.1 [degF] 100 mm[Hg] 60 mm[Hg] Jose Xie [facility] 7 09:05:42 Social History Question Answer Notes LastModified by Organizat ion Details LastModified Time Tobacco Smoking Status Never Smoker Chitra Jaime MA [facility], [facility] 12/21/2015 15:18:05 Do You Have An Advance [...] not available 12/21/2015 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 Information not available 12/21/2015 Swimming/diving Yes Informati [...] virus, quadrivalent, preservative 6 completed Not Available [facility] 03/14/2019 02:32:36 Past Encounters Encounter ID Performer Location Encounter Start Date Encounter Closed Date Diagnosis/Indication Diagnosis SNOMED-CT Code Diagnosis ICD10 Code Diagnosis Note [id number] JOYCE Mckeon (Adult Med) [address] [place] [id number] 12/21/2015 14:48:02 12/21/2015 17:59:29 Depressive disorder 75926899 F33.8 Per patient, well controlled with Wellbutrin 150mg SRWill continue Anxiety 36231877 F41.9 Adult heal th examination 970047420 Z00.01 30YO female here to establish care. Only complaints are depression and anxiety Active or passive immunization 915875410 Z23 [id number] JOYCE Mckeon (Adult Med) [address] [place] [phone] 07/18/2016 08:33:47 07/18/2016 17:35:30 Overweight 894091873 E66.3 Advised 30 minutes of exercise 5 days/week Advised to not drink her calories Advised 3 balanced meals/day with plenty of fruits and vegtables Venereal d isease screening 921373915 Z11.3 Depressive disorder 3548 9007 F33.8 d/w wellbutrin Advised that if she feels like things change to make an appointmen tAdvised she can make a counseling or psych appointmen t at the front here without seeing me for a referral; however, she states that she feels great at this time Generalize d anxiety disorder 34719677 F41.1 d/w wellbutrin Advised that if she [...] *SELF PAY* Jimmy land Olesya 07/18/2016 1 [facility] [id number] Juan Ramon Olesya [id number] 2 Bethany Olesya Notes Date Note Type Note Provider Name and Address Organization Details Recorded Time 12/21/2015 text/html Here to [facility]. Only complaints are anxiety/depressio n Rula Coleman PA-C Attn: Accounting,[address] [place], [address], [facility] 12/21/2015 [...] have tonsils. Rula Coleman PA-C Attn: Accounting,[address] [place], [address], [facility] 07/18/2016 11:15:18 OBGyn Episode No OBEpisode recorded.
--- OUTSIDE RECORDS SUMMARY | 2024-06-07 19:43 | XMS_ITS | Clinical Summary ---
Author Organization [facility] Address [address] [facility] [place] [address] Care Team Providers Care Solderer Furnace Name Role Phone Cheryl Calvin MD Unavailable [phone] Koby Shah DO Unavailable Sariah Luo PA-C Primary Care Provider [phone] Source Comments [facility],non-owned Affiliates and Associated Physician Practices is amultiple site organization consisting of ambulatory clinics and hospital sitesin [place], [place], [place] and [place]. This disclosure is being madepursuant to the Care Everywhere program and may not contain all information available regarding this patient. Last updated 17.[facility] Allergies Active Allergy Reactions Criticality Noted Date Comments Adhesive Sensitivity 10/10/2011 Citalopram Nausea and/or Vomiting 06/02/2014 Hydrocodone Itching 04/16/2023 Latex 10/10/2011 Morphine 08/20/2013 Seizure Medications * Be aware that medications may not be up to date on this document. Alwaysverify current medications with the patient. busPIRone (Buspar) 5 MG tablet Active clonazePAM (KlonoPIN) 0.5 MG tablet 4 Active Magnesium 400 MG Act salo [place]-3 1000 MG Acti ve venlafaxine (Effexor) 37.5 MG tablet Take 1 (one) tablet by mouth 2 times daily 4 Active Multiple Vitamins-Minerals (CENTRUM WOMEN PO) A ctive riboflavin 400 MG capsule Take 1 (one) capsule by mouth once daily 100 capsule 6 4 Active clindamycin (Cleocin) 1 % lotion APPLY TOPICALLY TO FACE EVERY MORNING 4 Active clobetasol (Temovate) 0.05 % ointment APPLY TO THE AFFECTED AREA ON HANDS TWICE A DAY NEEDED 4 Active doxycycline monohydrate 50 MG capsule TAKE 1 CAPSULE BY MOUTH TWICE DAILY WITH FOOD AND WATER 4 Active amitriptyline (Elavil) 10 MG tablet Take 1 (one) tablet by mouth every evening 90 tablet 4 4 Active ubrogepant (Ubrelvy) 100 MG tabletIndications: Chronic nonintractable headache, unspecified headache type Take 1 (one) tablet by mouth daily as needed - may repeat one time for Migraine No more than 2 doses in 24 hours. 8 tablet 3 5 Active sodium chloride, hypertonic, (Patti 128) 5 % Apply 1/4 inch into both eyes at night 5 Active aspirin EC (Ecotrin) 81 MG tablet Take 1 (one) tablet by mouth once daily Active Active Problems Problem Noted Date Diagnosed Date Onychomycosis 07/22/2013 Thoracic back pain 07/02/2012 Migraine 02/12/2012 MIRELLA (generalized anxiety disorder) 11/11/2011 Panic disorder 11/11/2011 Encounters Date Type Department Care Team Description 05/26/2024 9:20 AM CDT Office Visit [address] [address] Pavan Hernandez MD Chronic nonintractable headache, unspecified headache type (Primary Dx); Balance disorder; Pain around right eye; Medication side effects from Last 3 Months Immunizations Immunization Administration Dates Next Due INFLUENZA VACCINE 12/06/2011 [...] drink = 0.6 oz pur e alcohol) Comments No Sex and Gender Information Value Date Recorded Sex Assigned at Not on file Legal Sex Female 1:55 PM FILM HISTORIAN Gender Identity Not on file Sexual Orientation [...] Description 09/29/2024 10:40 AM CDT Office Visit [facility] [address] [place] [address] Pavan Hernandez MD [address] [place], [place] [id number] Health Maintenance Due Date Last Done Comments [...] patient's age to complete this topic Insurance [facility] CHOICE PLUS ALICIAMÓNICA PRABHAKAR [id number] ANTHEM Care Teams Solderer Furnace Relationship Specialty Start Date End Date Sariah Luo PA-C [address], [facility] [address] [place], [place] [phone] PCP - General 05/26/24 Cheryl Calvin MD Orthopedic Surgery 10/31/11 Koby Shah DO Orthopedic Surgery 09/09/12
--- OUTSIDE RECORDS SUMMARY | 2024-06-07 19:43 | XMS_ITS | Patient Health Record ---
Author Organization [facility] As [facility] Address [address] [facility] [address] [place] [address] Care Team Providers Care Customs Consultant Name Role Phone Effie Moss Unavailable [phone] JuarezChen lyn Unavailable [phone] Migration, Provider Unavailable Unavailable Allergies Allergen (clinical [...] Oxazepam (BZO) NEG 0 - 300 ng/ml 3-qnamdvyjpc-2,2-cmzbxfni-1,3-diphenylpyrrolidine (SHANNON P) NEG 0 - 300 ng/ml Methamphetamine (MET) NEG 0 - 1000 ng/ml Methylenedioxymethamphetamine (MDMA) NEG 0 - 500 ng/ml Morphine (MOP 300/WWP7078) NEG 0 - 300 ng/ml Methadone (MTD) [...] Status Risk Notes Problem Generalized anxiety disorder (70441275) MIRELLA (generalized anxiety disorder) (F41.1) Active confirmed Problem Mild recurrent major depression (13143283) MDD (major depressive disorder), recurrent episode, mild (F33.0) Active confirmed Problem Posttraumatic stress disorder (93164072) Chronic post-traumatic stress disorder (PTSD) (F43.12) Active confirmed Vital Signs Heart Rate 76 /min 01/14/2024 Blood pressure diastolic 83 mm Hg 01/14/2024 Weight-kg 96.98 kg 01/14/2024 Blood pressure systolic 123 mm Hg 01/14/2024 Weight 213.8 lbs 01/14/2024 Encounters Encounter Location Date Provider Diagnosis [facility] [address] [facility] [address] [facility] [address] [facility] [address] [place] [address] 01/14/2024 Chen Juarez MDD (major depressive disorder), recurrent episode, mild F33.0 ; MIRELLA (generalized anxiety disorder) F41.1 and Chronic post-traumatic stress disorder (PTSD) F43.12 [facility] [address] [place] [address] [facility] [address] [place] [address] 04/06/2024 Chen Pizarro MDD (major depressive disorder), recurrent episode, mild F33.0 ; MIRELLA (generalized anxiety disorder) F41.1 and Chronic post-traumatic stress disorder (PTSD) F43.12 [facility] [address] [place] [address] [facility] [address] [facility] [address] [place] [address] 07/13/2023 Provider Migration [facility] [address] [place] [address] [facility] [address] [address] 07/14/2023 Provider Migration Assessments Encounter Date Diagnosis [...] Details Provider Name:Chen Pizarro, 07/03/2024 08:30:00 AM, [address], [address], [place], [address], Insurance Providers Payer Name Payer Address Payer Phone Subscriber Number Group Number Insured Name Patient Relationship to Insured Coverage Start Date Coverage End Date [employer] [address] [place] [address] [id number] GARTH DACOSTA Spouse - patient is the spouse of the insured [facility] [address] [address] [place] [address] [phone] [id number] BAO DACOSTA Self - patient is the [...]
--- OUTSIDE RECORDS SUMMARY | 2024-06-07 19:43 | XMS_ITS | Referral Summary ---
Author Organization [facility] Address [address] [place] [phone] Phone Care Team Providers Care Nursing Project Coordinator Name Role Phone Lisa Pires MD Primary Care Provider Encounters Date Type Department Care Team Description 04/14/2024 11:30 AM REFUSE AND RECYCLING WORKER Office Visit [facility] Ophthalmology [address], [address] [place] [address] Albin Luis MD Trichiasis of left lower eyelid (Primary Dx) 04/03/2024 2:45 PM REFUSE AND RECYCLING WORKER Office Visit [facility] Ophthalmology 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] 11/07/2023 Assessment & Plan (01/30/2024 10:09 AM REFUSE AND RECYCLING WORKER): -pt c/o ice pick pain shooting through [...] -RTC next available cornea at [facility] -h/o complete resolution with LATIA 8.4 BCL [...] resolution of symptoms x 4 days -discussed predatory animal exterminator tx with a course of doxy po [...] into the office tomorrow d/t work) -discussed assisted tx with a course of doxy po [...] for consideration of a referral to a consumer product advisor for a transesophageal echocardiogram as well as extended cardiac exercise specialist to exclude paroxysmal atrial fibrillation. In addition [...] right-sided numbness. She has been hospitalized at [facility] with what sounds to be [...] Plan of Treatment Not on file Insurance [employer] [place] [employer] OR [facility] H[facility]/PPO Address: [address] [address] [place] [address] [facility] CHOICE OOS Member Subscriber Plan / Payer (Ef fective 2022-Present) Name:OlesyaBethany maza Relation to Subscriber:Spouse Name:JUAN RAMON DACOSTA Date of :1987 (Home) Address: [address] [place] [id number] Payer ID:[id number] (NAIC) Type: ALLIANCE Address: [phone] [facility] HMO/PPO Address: [address] [address] [place] [address] Care Teams Nursing Project Coordinator Relationship Specialty Start Date End Date Lisa Pires MD [address] [facility] [address] [place] [address] PCP - General Family Medicine 06/17/20
--- OUTSIDE RECORDS SUMMARY | 2024-06-07 19:43 | XMS_ITS | Clinical Summary ---
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] 11/07/2023 Assessment & Plan (01/30/2024 10:09 AM APPLICATION PENETRATION TESTER): -pt c/o ice pick pain shooting through [...] qhs OU -RTC next available cornea at [facility] -h/o complete resolution with LATIA 8.4 [...] resolution of symptoms x 4 days -discussed intermodal customer service tx with a course of doxy po [...] into the office tomorrow d/t work) -discussed fdc tx with a course of doxy po [...] for consideration of a referral to a wind turbine controls engineer for a transesophageal echocardiogram as well as extended monitoring tech to exclude paroxysmal atrial fibrillation. In addition [...] She has been hospitalized at [facility] with what sounds to be extensive diagnostic testing completed. Medical records will be obtained for review. Anxiety 12/21/2015 Depressive disorder 12/21/2015 Migraine 02/12/2012 MIRELLA (generalized anxiety disorder) 11/11/2011 Encounters Date Type Department Care Team Description 04/14/2024 11:30 AM APPLICATION PENETRATION TESTER Office Visit [facility] Ophthalmology [address] [facility] [address], [address] [place] [address] Albin Luis MD Trichiasis of left lower eyelid (Primary Dx) 04/03/2024 2:45 PM APPLICATION PENETRATION TESTER Office Visit [facility] Ophthalmology [address] [facility] [address], [address] [place] [address] Meggan Devine MD PhD Anterior basement membrane [...] patient's age to complete this topic Insurance [employer] [place] [employer] [place] [facility] BLUE [facility] CHOICE OOS [facility] Care Teams Mining Engineer Relationship Specialty Start Date End Date Lisa Pires MD [address] [facility] [address] [place] [address] PCP - General Family Medicine 06/17/20
--- OUTSIDE RECORDS SUMMARY | 2024-06-07 19:43 | XMS_ITS | Encounter Summary ---
Author Organization [facility] Health Address [address] [place] [address] Care Team Providers Care Truck Driver Flatbed Name Role Phone Cheryl Calvin MD Unavailable [phone] Koby Shah DO Unavailable Lisa Pires MD Primary Care Provider U Sariah Eden PA-C Primary Care Provider [phone] Encounter Details Date Type Department Care Team (Late Contact Info) Description 01/01/2014 Therapy Visit EXTERNAL NON-[facility] DEPT Unknown, Provider Social History Tobacco Use Types Packs/Day Years Used Date Smoking Tobacco: Never Smokeless Tobacco: Never Alcohol Use Standard Drinks/Week Comments No 0 (1 standard drink = 0.6 oz pur e alcohol) Comments No Sex and Gender Information Value Date Recorded Sex Assigned at Not on file Legal Sex Female 1:55 PM WOOD CRAFTSMAN Gender Identity Not on file Sexual Orientation Not on file documented as of this encounter Plan of Treatment Upcoming Encounters Date Type Department Care Team (Late Contact Info) Description 09/29/2024 10:40 AM CDT Office Visit [facility] Health Neurosciences [address] [place], [place] [phone] Pavan Hernandez MD [address] [place], [place] [phone] documented as of this encounter Visit Diagnoses Not on filedocumented in this encounter Care Teams Truck Driver Flatbed Relationship Specialty Start Date End Date Lisa Pires MD [address] [place] [address] PCP - General Family Medicine 04/16/23 05/25/24 Sariah Luo PA-C [address] [place] [address] PCP - General 05/26/24 Cheryl Calvin MD Orthopedic Surgery 10/31/11 Koby Shah DO Orthopedic Surgery 09/09/12 documented as of this encounter
--- OUTSIDE RECORDS SUMMARY | 2024-06-07 19:43 | XMS_ITS ---
Author Organization [facility] Address Formerly [facility] Reese Mckenzie [address] [id number] Care Team Providers Care Hot Cell Technician Name Role Phone Gabriel Ewing Primary Care Provider Pollo Thompson Unavailable [phone] Migration, Provider Unavailable Unavailable Allergies Allergen (clinical [...] Location Date Provider Diagnosis ENT Plastic Surgery [place] [address] Reese Mckenzie [address] [id number] 02/08/2024 Provider Migration Plan Of Treatment No Information Progress Notes * Bethany DACOSTADOB:1985 (39 yo F)Acc No.[id number]:02/08/2024 Patient: Bethany SANTIAGO Provider: Coy matamoros Migration :1985 A ge:38 Y S ex:Female Date:02/08/2024 Address:[address] [place], [place] [id number] Pcp:Gabriel Ewing Subjective: * Chief Complaints: * [...] Electronic signature of Prov ider Migration on 06/07/2024 at 07:43 PM CDT Sign off status: Pending * Provider: Coy matamoros Migration Date: 1 04/10/2023 Generated for Gagan morrell/Ruby/Carmen on: 0 06/07/2024 07:43 PM CDT
--- OUTSIDE RECORDS SUMMARY | 2024-06-07 19:43 | XMS_ITS | Clinical Summary ---
Author Organization [facility] Address [address] [place] [address] Care Team Providers Care Carpenter Prototype Name Role Phone Lisa Pires MD Primary Care Provider [phone] Social History Tobacco Use Types Packs/Day Years [...] Every 5 Years 05/02/2017 Cervical Cancer Screening [facility] HPV 05/02/2017 COVID-19 Vaccine ( - 2023-2 [...] 5 Years) and At-Risk Patients (6 to 49 Years) Aged Out No longer eligible b ased on patient's age to complete this topic RSV Immunizations Under 20 Months Aged Out No longer eligible b ased on patient's age to complete this topic Insurance Member Subscriber Plan / Payer (Ef fective 2021-Present) Name:Bethany Dacosta V Relation to Subscriber:Self Name:Bethany Dacosta V Payer ID:Not on file Type:Not on file Address: [address] [place] [phone] [employer] [facility] [employer] Care Teams Carpenter Prototype Relationship Specialty Start Date End Date Lisa Pires MD [address] [facility] [address] [facility] 120 [place] [address] PCP - General FAMILY PRACTICE 12/26/21
--- NOTE | 2024-06-07 19:45 | ECG_ITS ---
Test Date: 2024-06-07 19:50:10 Measurements Intervals [place] Rate: 112 P: 49 AK: 124 QRS: 46 QRSD: 90 T: 33 QT: 319 QTc: 436 Interpretive Statements SINUS TACHYCARDIA MINIMAL Q WAVES- INF/LAT LEADS NONSPECIFIC ST & T-WAVE ABNORMALITY- ANT/INF LEADS BASELINE ARTIFACT- I, II, III, AVR, AVL, V1 ABNORMAL ECG Compared to ECG 06/01/2024 19:36:31 HEART RATE HAS INCREASED Electronically Signed On 06-07-2024 20:34:29 CDT by Damir Balderas D.O.
[2024-06-07 21:29] LABS: Basophils Percent Auto 0.2 % (0.2-1.2); Eosinophils Percent Auto 0.3 % (0-4.4); Hematocrit 36.7 % (37.0-47.0); Hemoglobin 11.9 g/dL (12.0-15.0); Immature Granulocyte Absolute 0.02 K/mm3 (0.00-0.031); Immature Granulocyte Percent A 0.2 % (0-0.5); Lymphocytes Absolute Auto 0.77 K/mm3 (0.9-3.2); Lymphocytes Percent Auto 8.4 % (18.3-44.2); Mean Corpuscular HGB Conc 32.4 g/dl (32-36); Mean Corpuscular Hemoglobin 29.2 pg (26-34); Mean Platelet Volume 9.8 fl (7.4-10.4); Monocytes Absolute Auto 0.5 K/mm3 (0.1-0.6); Monocytes Percent Auto 5.9 % (2.6-8.5); Neutrophils Absolute Auto 7.8 K/mm3 (1.3-6.7); Platelet Count Result 251 k/mm3 (150-375); Red Blood Count 4.08 M/mm3 (4.2-5.4); Red Cell Distribution Width 12.9 % (11.5-14.5); White Blood Count 9.1 K/mm3 (4.5-10.0)
[2024-06-07 21:32] VITALS: O2SAT 99
[2024-06-07 21:43] LABS: Alanine Aminotransferase 17 U/L (6-35); Albumin Level 4.4 g/dL (3.5-5.1); Alkaline Phosphatase 71 U/L (38-126); Anion Gap 9 mmol/L (4-12); Aspartate Amino Transferase 26 U/L (14-36); Bilirubin,Total 0.4 mg/dL (0.2-1.3); Blood Urea Nitrogen 12 mg/dL (7-17); Calcium 9.2 mg/dL (8.4-10.2); Carbon Dioxide 27 mmol/L (22-30); Chloride 101 mmol/L (98-107); Estimated CRCL calculation 71 ml/min; Estimated Glomerular Filt Rate 54; Glucose 103 mg/dL (65-110); Potassium 3.8 mmol/L (3.4-5.0); Sodium 137 mmol/L (137-145)
[2024-06-07 21:51] LABS: D Dimer 0.93 ug/mL (<0.48)
--- OUTSIDE RECORDS SUMMARY | 2024-06-07 22:16 | XMS_ITS | Clinical Summary ---
Author Organization [facility] Address [address] [facility] [place] [address] Care Team Providers Care Sport Intern Name Role Phone Cheryl Calvin MD Unavailable [phone] Koby Shah DO Unavailable Sariah Luo PA-C Primary Care Provider [phone] Source Comments [facility],non-owned Affiliates and Associated Physician Practices is amultiple site organization consisting of ambulatory clinics and hospital sitesin [place], [place], [place] and [place]. This disclosure is being madepursuant to the Care Everywhere program and may not contain all information available regarding this patient. Last updated 17.[facility] Allergies Active Allergy Reactions Criticality [...] 4 Active Magnesium 400 MG Act salo [place]-3 1000 MG Acti ve venlafaxine (Effexor) 37.5 [...] Description 05/26/2024 9:20 AM CDT Office Visit [address] [address] Pavan Hernandez MD Chronic nonintractable headache, unspecified [...] on file Legal Sex Female 1:55 PM CONVENIENCE STORE CLERK Gender Identity Not on file Sexual Orientation [...] [facility] Health Neurosciences [address] [place] [address] Pavan Hernandez MD [address] [place], [place] [phone] Health Maintenance Due Date Last Done Comments [...] age to complete this topic Insurance [facility]M [facility] CHOICE PLUS ALICIAMÓNICA PRABHAKAR [id number] ANTHEM Care Teams Sport Intern Relationship Specialty Start Date End Date Sariah Luo PA-C [address] [facility] [address] [facility] [address] [place], [place] [phone] PCP - General 05/26/24 Cheryl Calvin MD Orthopedic Surgery 10/31/11 Koby Shah DO Orthopedic Surgery 09/09/12
--- OUTSIDE RECORDS SUMMARY | 2024-06-07 22:16 | XMS_ITS | Clinical Summary ---
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 In [...] numbness. She has been hospitalized at [facility] with what sounds to be extensive diagnostic testing completed. Medical records will be obtained for review. Anxiety 12/21/2015 Depressive disorder 12/21/2015 Migraine 02/12/2012 MIRELLA (generalized anxiety disorder) 11/11/2011 Encounters Date Type Department Care Team Description 04/14/2024 11:30 AM LINE AND FRAME POLER Office Visit [facility] Ophthalmology [address] [facility] [address], [address] [place] [address] Albin Luis MD Trichiasis of left lower eyelid (Primary Dx) 04/03/2024 2:45 PM LINE AND FRAME POLER Office Visit [facility] Ophthalmology [address] [facility] [address], [address] [place] [address] Meggan Devine MD PhD Anterior basement membrane [...] patient's age to complete this topic Insurance ipadio PR ipadio PR [facility] BLUE [facility] CHOICE OOS [facility] Care Teams Assistant News Director Relationship Specialty Start Date End Date Lisa Pires MD [address] [facility] [address] [place] [address] PCP - General Family Medicine 06/17/20
--- OUTSIDE RECORDS SUMMARY | 2024-06-07 22:16 | XMS_ITS | Encounter Summary ---
Author Organization [facility] Health Address [address] [facility] [place] [address] Care Team Providers Care Office Machinery Or Equipment Installer Name Role Phone Cheryl Calvin MD Unavailable [phone] Koby Shah DO Unavailable Lisa Pires MD Primary Care Provider U Sariah Eden PA-C Primary Care Provider [phone] Encounter Details Date Type Department Care Team [...] on file Legal Sex Female 1:55 PM REVENUE ANALYST Gender Identity Not on file Sexual Orientation Not on file documented as of this encounter Plan of Treatment Upcoming Encounters Date Type Department Care Team (Late Contact Info) Description 09/29/2024 10:40 AM CDT Office Visit [facility] Health Neurosciences [address] [place], [place] [phone] Pavan Hernandez MD [address] [place], [place] [phone] documented as of this encounter Visit Diagnoses Not on filedocumented in this encounter Care Teams Office Machinery Or Equipment Installer Relationship Specialty Start Date End Date Lisa Pires MD [address] [place] [address] PCP - General Family Medicine 04/16/23 05/25/24 Sariah Luo PA-C [address] [place] [address] PCP - General 05/26/24 Cheryl Calvin MD Orthopedic Surgery 10/31/11 Koby Shah DO Orthopedic Surgery 09/09/12 documented as of this encounter
--- OUTSIDE RECORDS SUMMARY | 2024-06-07 22:16 | XMS_ITS | Clinical Summary ---
Author Organization [facility] Address [address] [place] [address] Care Team Providers Care Associate Professor Of Music Name Role Phone Lisa Pires MD Primary Care Provider [phone] Social History Tobacco Use Types Packs/Day Years [...] Every 5 Years 05/02/2017 Cervical Cancer Screening [facility] HPV 05/02/2017 COVID-19 Vaccine ( - 2023-2 [...] file Type:Not on file Address: [address] [place] [phone] [employer] Care Teams Associate Professor Of Music Relationship Specialty Start Date End Date Lisa Pires MD [address] [facility] [address] [facility] 120 [place] [address] PCP - General FAMILY PRACTICE 12/26/21
--- OUTSIDE RECORDS SUMMARY | 2024-06-07 22:16 | XMS_ITS | Referral Summary ---
Author Organization [facility] Virtual Care Address [address] [place] [phone] Phone Care Team Providers Care Global Product Manager Name Role Phone Lisa Pires MD Primary Care Provider Encounters Date Type Department Care Team Description 04/14/2024 11:30 AM SUBMARINE DIVER Office Visit [facility] Ophthalmology [address], [address] [place] [address] Albin Luis MD Trichiasis of left lower eyelid (Primary Dx) 04/03/2024 2:45 PM SUBMARINE DIVER Office Visit [facility] Ophthalmology 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 In addition [...] right-sided numbness. She has been hospitalized at [facility] with what sounds to be extensive [...] Plan of Treatment Not on file [place] [employer] [place] [employer] [place] [facility] BLUE [facility] CHOICE OOS Member Subscriber Plan / Payer (Ef fective 2022-Present) Name:OlesyaBethany maza Relation to Subscriber:Spouse Name:JUAN RAMON DACOSTA Date of :1987 (Home) Address: [address] [place] [phone] Payer ID:[id number] (NAIC) Type: ALLIANCE Address: [address] Care Teams Global Product Manager Relationship Specialty Start Date End Date Lisa Pires MD [address] [facility] 120 [place] [address] PCP - General Family Medicine 06/17/20
[2024-06-07 22:41] VITALS: BP 102/65; PULSE 101; RESP 16; O2SAT 98
--- NOTE | 2024-06-07 23:17 | ED_ITS ---
HPI - General Adult General Chief complaint: Shortness of Breath/Dyspnea Stated complaint: Shortness of breath, calf pain Time Seen by Provider: 06/07/24 21:56 History of Present Illness HPI narrative: Patient is a 39-year-old female presents emergency department with chief complaint high heart rate shortness of breath and possible left calf DVT. Patient was seen in the emergency department for chest pain had test that were negative and was sent home on Saturday the patient was seen at [facility] today and was recommended that she come to the emergency department to evaluate for possible PE and possible DVT. Patient did have a D-dimer that was 0.93 patient states she is not having any active chest pain right now and not having any shortness of breath the moment Related Data Home Medications ?Medication ?Instructions ?Recorded ?Confirmed ?Last Taken ?Type multivitamin-ferrous 1 tablet PO DAILY 10/20/20 05/15/24 Unknown History fumarate-folic acid 18 mg-400 mcg tablet (Centrum Women) magnesium hydroxide 400 mg/5 mL 400 mg PO DAILY PRN 04/02/23 05/15/24 Unknown History oral suspension riboflavin (vitamin B2) 400 mg 400 mg PO DAILY 07/26/23 05/15/24 Unknown History tablet ubrogepant 100 mg tablet (Ubrelvy) 100 mg PO ONCE 07/26/23 05/15/24 Unknown History amitriptyline 10 mg tablet 10 mg PO QHS 05/15/24 05/15/24 Unknown History sodium chloride 5 % eye ointment 1 applic EACH EYE QHS 05/15/24 05/15/24 Unknown History (Patti 128) Allergies Allergy/AdvReac Type Severity Reaction Status Date / Time adhesive Allergy Intermediate RASH Verified 06/07/24 21:37 latex Allergy Intermediate RASH Verified 06/07/24 21:37 hydrocodone Allergy Unknown Itching Verified 06/07/24 21:37 morphine Allergy Unknown Siezure Verified 06/07/24 21:37 phenol Allergy Unknown Swelling Verified 06/07/24 21:37 nortriptyline AdvReac Severe suicidal Verified 06/07/24 21:37 ideation bupropion (From Wellbutrin) AdvReac Intermediate Confusion Verified 06/07/24 21:37 citalopram AdvReac Intermediate Headache Verified 06/07/24 21:37 lexapro AdvReac Severe sweats, Uncoded 06/07/24 21:37 nightmares amitriptyline AdvReac Intermediate arthralgia Uncoded 06/07/24 21:37 Review of Systems 2 Review of Systems: A 10 system review of systems was completed on the patient and is negative except for what is stated in the HPI. Nursing and ancillary documentation was reviewed. [facility] Past Medical History Medical History RUQ abdominal pain BMI 32.0-32.9,adult Hypersomnolence Narcolepsy Paresthesia of skin Abdominal bloating Hoarse voice quality Dysphonia Right flaccid hemiplegia Aphasia Acute right-sided weakness Anemia Numbness and tingling of right face Cervico-brachial neuralgia Occipital neuralgia Arm paresthesia, right Facial paresthesia JONO (obstructive sleep apnea) Chest pain at rest Complex posttraumatic stress disorder Thyroid enlargement Chronic headaches Surgical History Surgical History H/O dilation and curettage Family History Family History Grandparent Diabetes mellitus Breast cancer Father Neuropathy Mother Neuropathy Family history unknown Social History Social History Social History: , her is the durable POA. She is a full code. She has one child. She works at [employer] 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 The patient occasionally drinks alcohol socially. She is a lifelong nonsmoker. No marijuana or illicit drugs. 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 HEAD: Normocephalic, atraumatic. EYES: PERRLA and EOMI. ENT: Nares clear, no rhinorrhea or epistaxis. Mucous membranes moist. NECK: Supple. CHEST: Clear to auscultation. No respiratory distress. HEART: Regular rate and rhythm. No murmur heard. Normal peripheral pulses. ABDOMEN: Soft, nontender, nondistended, normal active bowel sounds. EXTREMITIES: Normal range of motion. No edema. SKIN: Warm, dry, no rash. NEURO: No focal deficits. Alert and oriented x3. PSYCH: Normal mood and affect. Course Vital Signs Vital signs: Vital Signs Temperature 37.1 C 06/07/24 19:41 Pulse Rate 115 H 06/07/24 19:41 Respiratory Rate 20 06/07/24 19:41 Blood Pressure 122/76 06/07/24 19:41 Pulse Oximetry 100 06/07/24 19:41 Oxygen Delivery Room Air 06/07/24 19:41 Temperature 37.1 C 06/07/24 19:41 Pulse Rate 101 H 06/07/24 22:41 Respiratory Rate 16 06/07/24 22:41 Blood Pressure 102/65 06/07/24 22:41 Pulse Oximetry 98 06/07/24 22:41 Oxygen Delivery Room Air 06/07/24 21:32 Medical Decision Making MDM Narrative Medical decision making narrative: Differential diagnosis includes ACS, PE, pneumonia, DVT Patient did have a positive D-dimer and underwent CTA of the chest to evaluate for possible pulmonary embolism. There is no evidence of large PE there was some artifact present on the scan Patient will be set up for a outpatient ultrasound in the morning Vital Signs Vital Signs: Vital Signs Temperature 37.1 C 06/07/24 19:41 Pulse Rate 115 H 06/07/24 19:41 Respiratory Rate 20 06/07/24 19:41 Blood Pressure 122/76 06/07/24 19:41 Pulse Oximetry 100 06/07/24 19:41 Oxygen Delivery Room Air 06/07/24 19:41 Temperature 37.1 C 06/07/24 19:41 Pulse Rate 101 H 06/07/24 22:41 Respiratory Rate 16 06/07/24 22:41 Blood Pressure 102/65 06/07/24 22:41 Pulse Oximetry 98 06/07/24 22:41 Oxygen Delivery Room Air 06/07/24 21:32 Lab Data 06/07/24 21:24 06/07/24 21:24 Labs: Lab Results 06/07/24 Range/Units 21:24 WBC 9.1 (4.5-10.0) K/mm3 RBC 4.08 L (4.2-5.4) M/mm3 Hgb 11.9 L (12.0-15.0) g/dL Hct 36.7 L (37.0-47.0) % MCV 90.0 (80-100) fl MCH 29.2 (26-34) pg MCHC 32.4 (32-36) g/dl RDW 12.9 (11.5-14.5) % Plt Count 251 (150-375) k/mm3 MPV 9.8 (7.4-10.4) fl Immature Gran % (Auto) 0.2 (0-0.5) % Neut % (Auto) 85.0 H (45.5-73.1) % Lymph % (Auto) 8.4 L (18.3-44.2) % [place] % (Auto) 5.9 (2.6-8.5) % Eos % (Auto) 0.3 (0-4.4) % Baso % (Auto) 0.2 (0.2-1.2) % Lymph # (Auto) 0.77 L (0.9-3.2) K/mm3 [place] # (Auto) 0.5 (0.1-0.6) K/mm3 Eos # (Auto) 0.0 (0-0.3) K/mm3 Baso # (Auto) 0.0 (0.0-0.1) K/mm3 Abs Immat Gran (auto) 0.02 (0.00-0.031) K/mm3 Absolute Neuts (auto) 7.8 H (1.3-6.7) K/mm3 Absolute Nucleated RBC 0.000 (0.0-0.012) K/mm3 Nucleated RBC % 0.0 (0.0-0.2) % D-Dimer 0.93 H (<0.48) ug/mL Sodium 137 (137-145) mmol/L Potassium 3.8 (3.4-5.0) mmol/L Chloride 101 (98-107) mmol/L Carbon Dioxide 27 (22-30) mmol/L Anion Gap 9 (4-12) mmol/L BUN 12 (7-17) mg/dL Creatinine 1.14 H (0.7-1.0) mg/dL Estim Creat Clear Calc 71 ml/min Estimated GFR 54 L (59 - ) Glucose 103 (65-110) mg/dL Calcium 9.2 (8.4-10.2) mg/dL Total Bilirubin 0.4 (0.2-1.3) mg/dL AST 26 (14-36) U/L ALT 17 (6-35) U/L Alkaline Phosphatase 71 (38-126) U/L Total Protein 7.0 (6.3-8.2) g/dL Albumin 4.4 (3.5-5.1) g/dL Discharge Plan Discharge Clinical Impression: Shortness of breath, Left leg pain Patient Disposition: Home Condition: Stable Instructions: Antibiotic Form, Dyspnea (ED), Leg Pain (ED) Additional Instructions: Please return to the department of radiology in the morning for a 7:30 a.m. appointment for a ultrasound of your left leg to evaluate for DVT Patient Language: Chadian Prescriptions: No Action buspirone 5 mg tablet 5 mg PO TID PRN (Reason: anxiety) Qty: 60 0RF modafinil 200 mg tablet 200 mg PO BID 30 Days Qty: 60 5RF riboflavin (vitamin B2) 400 mg tablet 400 mg PO DAILY Ubrelvy 100 mg tablet 100 mg PO ONCE Patient Comments: Hernandez- neuro Rx Instructions: as a single dose; may repeat once in >=2 hours after first dose if needed clonazepam 0.5 mg tablet 0.25 mg PO QHS PRN (Reason: insomnia) 30 Days Qty: 15 1RF magnesium hydroxide 400 mg/5 mL suspension 400 mg PO DAILY PRN amitriptyline 10 mg tablet 10 mg PO QHS sodium chloride [Patti 128] 5 % ointment 1 applic EACH EYE QHS Centrum Women 18-400 mg-mcg Tablet 1 tablet PO DAILY venlafaxine 37.5 mg tablet See Rx Instructions .ROUTE .COMPLEX Qty: 60 1RF Dose Instruction: TAKE 1 TABLET BY MOUTH TWICE DAILY Rx Instructions: TAKE 1 TABLET BY MOUTH DAILY Follow-up/Referrals: Sariah Luo, JOYCE [Primary Care Provider] - Time of Disposition: 23:22
[2024-06-07] MEDS: ENOXAPARIN 100 MG/ML SYRINGE 97 MG SUB-Q (23:42)
[2024-06-07 23:49] LABS: Troponin I < 0.012 ng/mL (0.000-0.034)
[2024-06-07 23:55] VITALS: BP 110/70; PULSE 97; RESP 15; O2SAT 99
== END 2024-06-08 00:05 | disposition home or self-care (01) ==
PROVIDERS: Emergency Provider Emergency Medicine; PCP Physician Assistant
DX: R06.02 Shortness of breath (principal); M79.662 Pain in left lower leg; G47.33 Obstructive sleep apnea (adult) (pediatric); F43.10 Post-traumatic stress disorder, unspecified; Z86.2 Personal history of diseases of the blood and blood-forming organs and certain disorders involving the immune mechanism; Z79.899 Other long term (current) drug therapy; R94.31 Abnormal electrocardiogram [ECG] [EKG]; R00.0 Tachycardia, unspecified
CPT/HCPCS: 36415; 71046; 71275; 80053; 84484; 85025; 85380; 93005; 96372; 99284; J1650; Q9967

== ENCOUNTER 2024-06-08 08:12 | Outpatient (CLI) | payer BC, OTHER, SELFPAY ==
--- NOTE | ~2024-06-08 | US_ITS ---
EXAMINATION:US venous doppler LE LT INDICATION:Leg pain TECHNIQUE: Multiple grayscale, color flow and Doppler images of the left lower extremity deep venous systems were obtained and reviewed. COMPARISON:No prior studies for comparison. FINDINGS: The common femoral, superficial femoral and popliteal veins demonstrate normal respiratory variation, augmentation and compressibility. Color flow is also seen within the posterior tibial, pe roneal, greater saphenous and profunda veins. IMPRESSION: 1: No lower extremity deep venous thrombosis. Reviewed, dictated and finalized at location []
--- OUTSIDE RECORDS SUMMARY | 2024-06-08 08:27 | XMS_ITS | Clinical Summary ---
Author Organization [facility] Address [address] [place] [address] Care Team Providers Care Jailer Name Role Phone Lisa Pires MD Primary Care Provider [phone] Social History Tobacco Use Types Packs/Day Years [...] Every 5 Years 05/02/2017 Cervical Cancer Screening [facility] HPV 05/02/2017 COVID-19 Vaccine ( - 2023-2 [...] file Type:Not on file Address: [address] [place] [id number] [employer] Care Teams Jailer Relationship Specialty Start Date End Date Lisa Pires MD [address] [facility] [address] [facility] 120 [place] [address] PCP - General FAMILY PRACTICE 12/26/21
--- OUTSIDE RECORDS SUMMARY | 2024-06-08 08:27 | XMS_ITS | Clinical Summary ---
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 In addition [...] right-sided numbness. She has been hospitalized at [facility] with what sounds to be extensive diagnostic testing completed. Medical records will be obtained for review. Anxiety 12/21/2015 Depressive disorder 12/21/2015 Migraine 02/12/2012 MIRELLA (generalized anxiety disorder) 11/11/2011 Encounters Date Type Department Care Team Description 04/14/2024 11:30 AM NETWORK ANNOUNCER Office Visit [facility] [address] [facility] [address], [address] [place] [address] Albin Luis MD Trichiasis of left lower eyelid (Primary Dx) 04/03/2024 2:45 PM NETWORK ANNOUNCER Office Visit [facility] [address] [facility] [address], [address] [place] [address] Meggan Devine MD PhD Anterior basement membrane [...] patient's age to complete this topic Insurance [employer] [place] [employer] [place] [facility] HMO/PPO Address: [address] [address] [place] [address] [facility] CHOICE OOS [facility] HMO/PPO Address: [address] [address] [place] [address] Care Teams Minister Helper Relationship Specialty Start Date End Date Lisa Pires MD [address] [facility] [address] [place] [address] PCP - General Family Medicine 06/17/20
--- OUTSIDE RECORDS SUMMARY | 2024-06-08 08:27 | XMS_ITS | Encounter Summary ---
Author Organization [facility] Address [address] [place] [address] Care Team Providers Care Stock Raiser Name Role Phone Cheryl Calvin MD Unavailable [phone] Koby Shah DO Unavailable Lisa Pires MD Primary Care Provider U Sariah Eden PA-C Primary Care Provider [phone] Encounter Details Date Type Department Care Team (Late Contact Info) Description 01/01/2014 Therapy Visit EXTERNAL NON-[facility] DEPT Unknown, Provider Social History Tobacco Use Types Packs/Day Years Used Date Smoking Tobacco: Never Smokeless Tobacco: Never Alcohol Use Standard Drinks/Week Comments No 0 (1 standard drink = 0.6 oz pur e alcohol) Comments No Sex and Gender Information Value Date Recorded Sex Assigned at Not on file Legal Sex Female 1:55 PM RATE AND COST ANALYST Gender Identity Not on file Sexual Orientation Not on file documented as of this encounter Plan of Treatment Upcoming Encounters Date Type Department Care Team (Late Contact Info) Description 09/29/2024 10:40 AM CDT Office Visit [facility] Health Neurosciences [address] [place], [place] [id number] Pavan Hernandez MD [address] [place], [place] [phone] documented as of this encounter Visit Diagnoses Not on filedocumented in this encounter Care Teams Stock Raiser Relationship Specialty Start Date End Date Lisa Pires MD [address] [place] [address] PCP - General Family Medicine 04/16/23 05/25/24 Sariah Luo PA-C [address] [place] [place] [address] PCP - General 05/26/24 Cheryl Calvin MD Orthopedic Surgery 10/31/11 Koby Shah DO Orthopedic Surgery 09/09/12 documented as of this encounter
--- OUTSIDE RECORDS SUMMARY | 2024-06-08 08:27 | XMS_ITS | Patient Health Record ---
Author Organization [facility] Address [address] [facility] [address] [place], [place] [id number] Care Team Providers Care Mental Health Orderly Name Role Phone Gabriel Ewing Primary Care Provider Pollo Thompson Unavailable [phone] Migration, Provider Unavailable Unavailable Allergies Allergen (clinical [...] Date Provider Diagnosis [facility] [place] [address] [address] [facility] [address] [place], [place] [id number] 02/08/2024 Provider Migration Plan Of Treatment No Information Insurance Providers Payer Name Payer Address Payer Phone Subscriber Number Group Number Insured Name Patient Relationship to Insured Coverage Start Date Coverage End Date Radha [facility] [id number] [place] [address] [id number] Bethany Dacosta Self - patient is the insured Medical (General) History Medical History History ICD Code Pertinent Medical History: Other,
--- OUTSIDE RECORDS SUMMARY | 2024-06-08 08:27 | XMS_ITS | Referral Summary ---
Author Organization [facility] Virtual Care Address [address] [place] [phone] Phone Care Team Providers Care Agronomy Location Manager Name Role Phone Lisa Pires MD Primary Care Provider Encounters Date Type Department Care Team Description 04/14/2024 11:30 AM URGENT CARE NURSE PRACTITIONER Office Visit [facility] [address], [address] [place] [address] Albin Luis MD Trichiasis of left lower eyelid (Primary Dx) 04/03/2024 2:45 PM URGENT CARE NURSE PRACTITIONER Office Visit [facility] 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] 11/07/2023 Assessment & Plan (01/30/2024 10:09 AM URGENT CARE NURSE PRACTITIONER): -pt c/o ice pick pain shooting through [...] resolution of symptoms x 4 days -discussed continuous churn buttermaker tx with a course of doxy po [...] into the office tomorrow d/t work) -discussed fpc tx with a course of doxy po 50mg bid and FML tid x 3 weeks -also discussed surgical interventions including SK and PTK; pt would like to try conservative treatment first before considering this -LTAIA 8.4 placed today OD -moxi tid OD [...] for consideration of a referral to a broomcorn scraper for a transesophageal echocardiogram as well as extended awake overnight monitor to exclude paroxysmal atrial fibrillation. In [...] right-sided numbness. She has been hospitalized at [facility] with what sounds to be [...] Plan of Treatment Not on file [place] [facility] BLUE [facility] CHOICE OOS Member Subscriber Plan / Payer (Ef fective 2022-Present) Name:OlesyaBethany maza Relation to Subscriber:Spouse Name:JUAN RAMON DACOSTA Date of :1987 (Home) Address: [address] [place] [phone] Payer ID:[id number] (NAIC) Type: ALLIANCE Address: [address] Care Teams Agronomy Location Manager Relationship Specialty Start Date End Date Lisa Pires MD [address] [facility] 120 [place] [address] PCP - General Family Medicine 06/17/20
--- OUTSIDE RECORDS SUMMARY | 2024-06-08 08:27 | XMS_ITS | Clinical Summary ---
Author Organization [facility] Address [address] [facility] [place] [address] Care Team Providers Care Controller Instructor Name Role Phone Cheryl Calvin MD Unavailable [phone] Koby Shah DO Unavailable Sariah Luo PA-C Primary Care Provider [phone] Source Comments [facility],non-owned Affiliates and Associated Physician Practices is amultiple site organization consisting of ambulatory clinics and hospital sitesin [place], [place], [place] and [place]. This disclosure is being madepursuant to the Care Everywhere program and may not contain all information available regarding this patient. Last updated 17.[facility] Allergies Active Allergy Reactions Criticality Noted [...] 4 Active Magnesium 400 MG Act salo [place]-3 1000 MG Acti ve venlafaxine (Effexor) 37.5 [...] Description 05/26/2024 9:20 AM CDT Office Visit [address] [address] Pavan Hernandez MD Chronic nonintractable headache, unspecified [...] on file Legal Sex Female 1:55 PM WELFARE AIDE Gender Identity Not on file Sexual Orientation [...] 10:40 AM CDT Office Visit [facility] Health Neurosciences [address] [place] [address] Pavan Hernandez MD [address] [place], [place] [id number] Health Maintenance Due Date Last Done Comments [...] age to complete this topic Insurance ANTHEM [facility] CHOICE PLUS ALICIAMÓNICA PRABHAKAR [id number] ANTHEM Care Teams Controller Instructor Relationship Specialty Start Date End Date Sariah Luo PA-C [address] [facility] [address] [facility] [address] [place], [place] [phone] PCP - General 05/26/24 Cheryl Calvin MD Orthopedic Surgery 10/31/11 Koby Shah DO Orthopedic Surgery 09/09/12
--- OUTSIDE RECORDS SUMMARY | 2024-06-08 08:27 | XMS_ITS ---
Author Organization [facility] Address [facility] [address] [id number] Care Team Providers Care Pneumatic Hoist Operator Name Role Phone Gabriel Ewing Primary Care Provider Pollo Thompson Unavailable [phone] Migration, Provider Unavailable Unavailable Allergies Allergen (clinical [...] Location Date Provider Diagnosis [facility] [place] [address] [address] [id number] 02/08/2024 Provider Migration Plan Of Treatment No Information Progress Notes * Bethany DACOSTADOB:1985 (39 yo F)Acc No.[id number]:02/08/2024 Patient: Bethany SANTIAGO Provider: Coy matamoros Migration :1985 A ge:38 Y S ex:Female Date:02/08/2024 Address:[address] [place], [place] [id number] Pcp:Gabriel Ewing Subjective: * Chief Complaints: * [...] Electronic signature of Prov ider Migration on 06/08/2024 at 08:27 AM CDT Sign off status: Pending * Provider: Coy matamoros Migration Date: 04/10/2023 Generated for Gagan morrell/Ruby/Carmen on: 0 06/08/2024 08:27 AM CDT
== END 2024-06-08 08:13 | disposition home or self-care (01) ==
PROVIDERS: PCP Physician Assistant; Visit Provider Emergency Medicine
DX: M79.605 Pain in left leg (principal)
CPT/HCPCS: 93971

== ENCOUNTER 2024-07-24 09:51 | Outpatient (CLI) | payer BC, OTHER, SELFPAY ==
--- OUTSIDE RECORDS SUMMARY | 2024-07-24 10:10 | XMS_ITS | Clinical Summary ---
Author Organization [facility] Address [address] [facility] [place] [address] Care Team Providers Care Renal Nurse Name Role Phone Cheryl Calvin MD Unavailable [phone] Koby Shah DO Unavailable Sariah Luo PA-C Primary Care Provider [phone] Source Comments [facility],non-owned Affiliates and Associated Physician Practices is amultiple site organization consisting of ambulatory clinics and hospital sitesin [place], [place], [place] and [place]. This disclosure is being madepursuant to the Care Everywhere program and may not contain all information available regarding this patient. 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 Gender Identity Not on file Sexual Orientation [...] 10:03 AM CDT Height 167.6 cm (5' 6) 05/26/2024 10:03 AM CDT Body Mass Index 34.38 05/26/2024 10:03 AM CDT Plan of Treatment Upcoming Encounters Date Type Department Care Team (Late st Contact Info) Description 09/29/2024 10:40 AM CDT Office Visit [facility] Health Neurosciences [address] [place] [address] Pavan Hernandez MD [address] [place], [place] [id number] Health Maintenance Due Date Last Done Comments [...] age to complete this topic Insurance ANTHEM [facility] CHOICE PLUS ANTHEM Care Teams Renal Nurse Relationship Specialty Start Date End Date Sariah Luo PA-C [address] [facility] [address] [facility] [address] [place] [address] PCP - General 05/26/24 Cheryl Calvin MD Orthopedic Surgery 10/31/11 Koby Shah DO Orthopedic Surgery 09/09/12
--- OUTSIDE RECORDS SUMMARY | 2024-07-24 10:10 | XMS_ITS | Clinical Summary ---
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 In addition [...] right-sided numbness. She has been hospitalized at [facility] with what sounds to be extensive diagnostic testing completed. Medical records will be obtained for review. 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] (Primary Dx) 06/26/2024 Telephone [facility] Cardiology [address] [facility] [address] 8th [place] [address] [place] [address] Sydney Padilla from Last 3 Months Immunizations Immunization Administration [...] P M CDT Height 167.6 cm (5' 5.98) 07/24/2023 1:55 PM CD T Body Mass Index 30.87 07/24/2023 1:55 PM CDT Plan of Treatment Health Maintenance Due Date Last Done Comments Cervical Cancer Screening 1985 Depression Screening 1985 Hepatitis C Screening 1985 DTaP/Tdap/Td Vaccine (1 - Tdap) 05/02/1998 Varicella Vaccines (1 of 2 - 13+ 2-dose series) 05/02/2000 Hepatitis B Screening 05/02/2005 Regular Well Visit/Exam 18-64 05/02/2005 Covid-19 Vaccine ( - 2023-2 5 season) 2023 08/02/2020, 07/12/2020 Influenza Vaccine (Season Ended) 2024 12/21/2015, 12/06/2011 HPV Vaccines Aged Out No longer eligi ble based on patient's age to complete this topic Pneumococcal vaccine <65 Aged Out No longer eligible based on patient's age to complete this topic [place] [facility] H[facility]/PPO Address: [facility] [address] [place] [address] [place] [facility] CHOICE OOS [facility] H[facility]/PPO Address: [address] [address] [place] [address] Care Teams Supervisor Cell Operation Relationship Specialty Start Date End Date Lisa Pires MD [address] [facility] [address] [place] [address] PCP - General Family Medicine 06/17/20
--- OUTSIDE RECORDS SUMMARY | 2024-07-24 10:10 | XMS_ITS | Patient Health Record ---
Author Organization [facility] As My Own Med [facility] Address [address] [facility] [address] [place] [address] Care Team Providers Care Clinical Supervisor Name Role Phone Effie Moss Unavailable [phone] Chen Oviedo Unavailable [phone] Allergies Allergen (clinical drug ingredient) Drug/Non Drug [...] Oxazepam (BZO) NEG 0 - 300 ng/ml 1-tkoeruidit-5,0-yqjqnlxk-6,3-diphenylpyrrolidine (SHANNON P) NEG 0 - 300 ng/ml Methamphetamine (MET) NEG 0 - 1000 ng/ml Methylenedioxymethamphetamine (MDMA) NEG 0 - 500 ng/ml Morphine (MOP 300/[id number]) NEG 0 - 300 ng/ml Methadone (MTD) NEG 0 - 300 ng/ml Phencyclidine (PCP) NEG 0 - 25 ng/ml Nortriptyline (TCA) NEG 0 - 1000 ng/ml Oxycodone NEG 0 - 300 ng/ml x NEG 0 - 300 ng/ml Reason For Referral No Information Medications Medication SIG (Take, Route, Frequency, Duration) Notes Start Date End Date Status Modafinil 100 MG 1 tablet in the morning Orally Once a day Active Magnesium 250 MG 1 tablet with a meal Orally Once a day Active Riboflavin 400 MG 1 tablet Orally Once a day Active Amitriptyline HCl 10 MG 1 tablet at bedt karli Orally Once a day for 90 days Active Venlafaxine HCl 75 MG 1 tablet with food Orally Once a day for 90 days Active clonazePAM 0.5 MG 0.5 tablet Orally Once a day for 30 days taking over script 07/15/2024 Active Ubrelvy 100 MG 1 tablet as needed, may take second dose at least 2 hours after first dose up to 2 tablets per day as needed Orally Once a day Active Venlafaxine HCl 37.5 MG TAKE 1 TABLET BY MOUTH DAILY WITH FOOD for 90 Active clonazePAM 0.5 MG TAKE 1/2 TABLET BY MOUTH DAILY for 30 06/30/2024 Active Social History Tobacco Use: Social History [...] Status Risk Notes Problem Generalized anxiety disorder (73463592) MIRELLA (generalized anxiety disorder) (F41.1) Active confirmed Problem Mild recurrent major depression (45426753) MDD (major depressive disorder), recurrent episode, mild (F33.0) Active confirmed Problem Posttraumatic stress disorder (04193833) Chronic post-traumatic stress disorder (PTSD) (F43.12) Active confirmed Problem Unable to concentrate (finding) (98300787) Difficulty concentrating (R41.840) Active confirmed Vital Signs Heart Rate 90 /min 07/15/2024 Blood pressure diastolic 72 mm Hg 07/15/2024 Weight-kg 94.35 kg 07/15/2024 Blood pressure systolic 102 mm Hg 07/15/2024 Weight 208 lbs 07/15/2024 Procedures Procedure Date Ordered Date Performed Result Body Sit e ADHD Testing 07/15/2024 N/A Encounters Encounter Location Date Provider Diagnosis [facility] [address] [address] 01/14/2024 Chen Oviedo MDD (major depressiv e disorder), recurrent episode, mild F33.0 ; MIRELLA (generalized anxiety disorder) F41.1 and Chronic post-traumatic stress disorder (PTSD) F43.12 [facility] [address] [address] 04/06/2024 Chengeorgi Oviedo MDD (major depressiv e disorder), recurrent episode, mild F33.0 ; MIRELLA (generalized anxiety disorder) F41.1 and Chronic post-traumatic stress disorder (PTSD) F43.12 [facility] [address] [address] 07/15/2024 Chen Oviedo MDD (major depressiv e disorder), recurrent episode, mild F33.0 ; MIRELLA (generalized anxiety disorder) F41.1 ; Chronic post-traumatic stress disorder (PTSD) F43.12 ; Encounter for screening for cardiovascular disorders Z13.6 ; Encounter for screening for depression Z13.31 and Difficulty concentrating R41.840 Assessments Encounter Date Diagnosis (ICD Code) Assessment [...] nightmares -cont counseling UDT done today 01/14/2024 MIRELLA (generalized anxiety disorder) (ICD-10 - [...] F33.0) Amitriptyline 10mg qHS per neurology (migraines) 07/15/2024 MIRELLA (generalized anxiety disorder) (ICD-10 - F41.1) 07/15/2024 MDD (major depressive disorder), recurrent episode, mild (ICD-10 - F33.0) Amitriptyline 10mg qHS per neurology (migraines) 07/15/2024 Chronic post-traumatic stress disorder (PTSD) (ICD-10 - F43.12) 01/14/2024 Chronic post-traumatic stress disorder (PTSD) (ICD-10 - F43.12) 1. [...] anxiety disorder) (ICD-10 - F41.1) 04/06/2024 Chronic post-traumatic stress disorder (PTSD) (ICD-10 - F43.12) 07/15/2024 Encounter for screening for cardiovascular disorders (ICD-10 - Z13.6) 07/15/2024 Encounter for screening for depression (ICD-10 - Z13.31) 07/15/2024 Difficulty concentrating (ICD-10 - R41.840) 01/14/2024 Other Stable on current medications, continue [...] of psychotropic medications. -Crisis prevention hotline 988. 07/15/2024 Other Increase venlafaxine to 75mg daily for mood, anxiety Patient educated on all medications including potential benefits, side effects, risks. Educated on proper dosing schedule and importance of compliance. [place] report checked and consistent with prescription history, no controlled substance prescriptions from other providers. Schedule for ADHD testing to rule in or rule out diagnosis -Assessment and treatment plan reviewed with patient. -Compliance with treatment plan importance discussed. -Discussed the risks/benefits of this medication -Discussed medication side effects. -Contact office if symptoms worsen. -Discussed that it can take up to 6-8 weeks to see full therapeutic effects of psychotropic medications. -Crisis prevention hotline 988. Plan Of Treatment Pending Test Test Name Order Date ADHD Testing 07/15/2024 Next Appt Details Provider Name:Alex Watson , 08/19/2024 10:00:00 AM, [address], [facility] [address], [place], [address], Provider Name:Chen rios, 09/09/2024 08:30:00 AM, [address], [address], [place], [address], Insurance Providers Payer Name Payer Address Payer Phone Subscriber Number Group Number Insured Name Patient Relationship to Insured Coverage Start Date Coverage End Date [facility] [address] [place] [address] [id number] YEHUDABAO Lopez Self - patient is the insured [facility] [address] [address] [place] [address] [id number] BAO DACOSTA Self - patient is the [...]
--- OUTSIDE RECORDS SUMMARY | 2024-07-24 10:10 | XMS_ITS | Patient Health Record ---
Author Organization [facility] Address [address] [facility] [address] [place], [place] [id number] Care Team Providers Care Senior Hris Analyst Name Role Phone Gabriel Ewing Primary Care Provider Pollo Thompson Unavailable [phone] Migration, Provider Unavailable Unavailable Allergies Allergen (clinical [...] Date Provider Diagnosis [facility] [place] [address] [address] [facility] [address] [place], [place] [id number] 02/08/2024 Provider Migration Plan Of Treatment No Information Insurance Providers Payer Name Payer Address Payer Phone Subscriber Number Group Number Insured Name Patient Relationship to Insured Coverage Start Date Coverage End Date [facility] [id number] [place] [address] [id number] Bethany Dacosta Self - patient is the insured Medical (General) History Medical History History ICD Code Pertinent Medical History: Other,
--- OUTSIDE RECORDS SUMMARY | 2024-07-24 10:10 | XMS_ITS ---
Author Organization [facility] Address [facility] [address] [id number] Care Team Providers Care Director Revenue Name Role Phone Gabriel Ewing Primary Care Provider Pollo Thompson Unavailable [phone] Migration, Provider Unavailable Unavailable Allergies Allergen (clinical [...] Location Date Provider Diagnosis [facility] [place] [address] [address] [phone] 02/08/2024 Provider Migration Plan Of Treatment No Information Progress Notes * Bethany DACOSTADOB:1985 (39 yo F)Acc No.[id number]:02/08/2024 Patient: Bethany SANTIAGO Provider: Coy matamoros Migration :1985 A ge:38 Y S ex:Female Date:02/08/2024 Address:[address] [place], [place] [phone] Pcp:Gabriel Ewing Subjective: * Chief Complaints: * [...] Electronic signature of Prov ider Migration on 07/24/2024 at 10:09 AM CDT Sign off status: Pending * Provider: Coy matamoros Migration Date: 1 04/10/2023 Generated for Gagan morrell/Ruby/Carmen on: 0 07/24/2024 10:09 AM CDT
--- OUTSIDE RECORDS SUMMARY | 2024-07-24 10:10 | XMS_ITS | Data Portability ---
Author Organization [facility] NORMBrittany [facility] Address [address] [place] [address] Care Team Providers Care Gin Clerk Name Role Phone LINDSAYRAINACHARITY Orthopaedic General Assessment No assessment recorded. Plan of Treatment Reminders Order Date Submit Date Provider Last Modified By Organization Details Last Modified Time Details Appointments None recorded. Lab CMP, serum or plasma 2016 017 [facility], [address] [place] [address], [facility] [address], [place], [address], 7 09:14:26 lipid panel, serum 2016 017 [facility], [address] [place] [address], [facility] [address], [place], [address], 7 09:14:25 RPR (rapid plasma reagin), serum 2016 017 [facility], [address] [place] [address], [facility] [address], [place], [address], 7 09:14:27 hepatitis panel (A+B+C), acute, serum 2016 017 [facility], [address] [place] [address], [facility] [address], [place], [address], 7 09:14:27 HIV 1+2 AB + HIV 1 p24 Ag, qualitative immunoassay , serum 2016 017 [facility], [address], [address], [place], [address], 7 09:14:27 CT + NG + TV, DNA, urine/swab 2016 017 [facility], [address], [address], [place], [address], 7 09:14:27 urinalysis, dipstick 2015 016 In-Office Order, Internal Use Only DO Not Attach Compendium DO Not Attach Compendium, Do Not Delete/merge, [id number] 6 04:29:55 Referral None recorded. Procedures None recorded. Surgeries None recorded. Imaging None recorded. Medication Orders bupropion HCl 150 mg tablet,12 hr sustained-r elease(smok ing deterrent) 2015 016 eewig Not available 6 12:20:05 Patient TargetsNo targets recorded. Patient Instructions Encounter Date Encounter Id Patient Instructions Last Modified By Organization Details Last Modified Time 12/21/2015 [id number] Will sign ORLIN from Gabriel Ewing at [facility] in [place] - last 2 office notes and recent labs Will sign ORLIN for last pap smear and labs from Charity Wolf at [facility] Patient currently does not have insurance - will do annual visit for OBGYN and IM together d/t cost annually in July - [facility] and [facility] d/t cost eewig Not available 12/21/2015 18:20:39 Reason for Referral None Reported. Results Created Date Observation Date Name Description Value Unit Range Abnormal Flag Note LastModifiedBy Organization Detail LastModifiedTime 12/21/19 16 12/21/2015 urina lysis , dipst ick Leukocytes Trace Not Available In-Offi ce Order Internal Use Only DO Not Attach Compendium DO Not Attach Compendium, Do Not Delete/merge, [id number] 12/21/2015 15:31:47 12/21/19 16 12/21/2015 urina lysis , dipst ick Nitrite negati ve Not Available In-Office Order Internal Use Only DO Not Attach Compendium DO Not Attach Compendium, Do Not Delete/merge, [id number] 12/21/2015 15:31:47 12/21/19 16 12/21/2015 urina lysis , dipst ick Urobilinogen .2 Not Available In-Of fice Order Internal Use Only DO Not Attach Compendium DO Not Attach Compendium, Do Not Delete/merge, [id number] 12/21/2015 15:31:47 12/21/19 16 12/21/2015 urina lysis , dipst ick Protein Negati ve Not Available In-Office Order Internal Use Only DO Not Attach Compendium DO Not Attach Compendium, Do Not Delete/merge, [id number] 12/21/2015 15:31:47 12/21/19 16 12/21/2015 urina lysis , dipst ick pH 6.0 Not Available In-Office Order Internal Use Only DO Not Attach Compendium DO Not Attach Compendium, Do Not Delete/merge, 12/21/2015 15:31:47 12/21/19 16 12/21/2015 urina lysis , dipst ick Blood Non-He molyze d: Trace Not Available In-Office Order Internal Use Only DO Not Attach Compendium DO Not Attach Compendium, Do Not Delete/merge, [id number] 12/21/2015 15:31:47 12/21/19 16 12/21/2015 urina lysis , dipst ick Specific Lenox 1.010 Not Available In-Off ice Order Internal Use Only DO Not Attach Compendium DO Not Attach Compendium, Do Not Delete/merge, [id number] 12/21/2015 15:31:47 12/21/19 16 12/21/2015 urina lysis , dipst ick Ketone Negati ve Not Available In-Office Order Internal Use Only DO Not Attach Compendium DO Not Attach Compendium, Do Not Delete/merge, [id number] 12/21/2015 15:31:47 12/21/19 16 12/21/2015 urina lysis , dipst ick Bilirubin Negati ve Not Available In-Office Order Internal Use Only DO Not Attach Compendium DO Not Attach Compendium, Do Not Delete/merge, [id number] 12/21/2015 15:31:47 12/21/19 16 12/21/2015 urina lysis , dipst ick Glucose Negati ve Not Available In-Office Order Internal Use Only DO Not Attach Compendium DO Not Attach Compendium, Do Not Delete/merge, [id number] 12/21/2015 15:31:47 12/21/19 16 12/21/2015 urina lysis , dipst ick Appearance Clear Not Available In-Offi ce Order Internal Use Only DO Not Attach Compendium DO Not Attach Compendium, Do Not Delete/merge, [id number] 12/21/2015 15:31:47 12/21/19 16 12/21/2015 urina lysis , dipst ick Color Yellow Not Available In-Office Order Internal Use Only DO Not Attach Compendium DO Not Attach Compendium, Do Not Delete/merge, [id number] 12/21/2015 15:31:47 08/28/19 17 XR, chest , 2 view No observ ation record ed. [email or web address] Not Available 2016 12:56:18 Result Notes None recorded. 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 2015 cannot feel right leg from knee down unless she is lying down and then she feels like a cement block is on it - has seen neurology, PT, pain management - would rather just deal with it Rula Coleman PA-C Attn: Accounting ,[address] [place], [address] , [facility] 6 15:54:56 Generaliz ed anxiety disorder 23693496 Active 2015 Rula Coleman PA-C Attn: Accounting ,[address] [facility], [place], [address] , [place] [facility] 6 15:56:28 Overweigh t 784791352 Active 2016 Rula Coleman PA-C Attn: Accounting ,[address] [place], [address] , [place] [facility] 7 11:13:44 Problem Notes None recorded. Procedures Surgical History Date Name Laterality Status Provider Name and Address Organization Details Recorded Time 08/05/19 15 Tonsillectomy completed Rula Coleman PA-C Attn: Accounting, [place], [address], [facility] 12/21/2015 16:08:27 02/25/19 14 Dilation and Curettage completed SLIME [facility] 12/21/2015 15:19:22 Imaging Results None recorded. Procedure Notes None recorded. Medical Equipment None Reported. Allergies Allergen ID Allergen Name Allergen Category Reaction Reaction Severity Criticality Documentation Date Start Date Code Code System Note Provider Name and Address Organization Details Recorded Time 20038 morphine medicatio n other severe Not available 12/21/2015 7052 RxNorm SLIME [place], [place] [facility] 6 15:14:53 53665 Celexa medicatio n vomiting Not available Not available 12/21/2015 86709 8 RxNorm [place] [facility] 6 15:15:09 02591 latex environme nt,medica tion rash Not available Not available 12/21/2015 77874 91 RxMarizolrm [place] [facility] 6 15:15:24 19820 adhesive environme nt,medica tion photosens itivity Not available Not available 12/21/2015 93307 UNK SLIME [place] [facility] 6 15:15:33 Medications Name Sig Start Date Stop Date [...] Details Last Updated DateTime 7 168.91 cm 61488.5 6 g 25.9 kg/m2 76 /min 18 /min 98.1 [degF] 100 mm[Hg] 60 mm[Hg] Jose Xie [facility] 7 09:05:42 Date Recorded Body height Body weight Body mass index (BMI) Heart rate Respiratory rate Body temperature Systolic blood pressure Diastolic blood pressure Provider Name and Address Organization Details Last Updated DateTime 6 168.91 cm 27300.3 6 g 25.8 kg/m2 91 /min 20 /min 98.7 [degF] 92 mm[Hg] 72 mm[Hg] Chitra Jaime MA [facility] 6 15:13:58 Social History Question Answer Notes LastModified by Organizat ion Details LastModified Time Tobacco Smoking Status Never Smoker Chitra Jaime MA [facility], [facility] 12/21/2015 15:18:05 Do You Have An Advance Directive? No Information not available 12/21/2015 Are You Blind Or Do You Have Difficulty Seeing? No Information not available 12/21/2015 What Is Your Level Of Caffeine Consumption? Moderate Information not available 12/21/2015 Can Child Swim? Yes Informati on not available 12/21/2015 How Much Tobacco Do You Chew? None Information not available 12/21/2015 Are You Deaf Or Do You Have Serious Difficulty Hearing? No Information not available 12/21/2015 What Type Of Diet Are You Following? REGULAR Information not available 12/21/2015 Which Illicit Or Recreational Drugs Have You Used? None Information not available 12/21/2015 Education 2 Year College Information not available 12/21/2015 Swimming/diving Yes Informati [...] Sunscreen Routinely? Yes Information not available 12/21/2015 Do You Have Difficulty Walking Or Climbing Stairs? No Information not available 12/21/2015 Sex: Unknown Functional Status Question Answer Note LastModified by Organizat ion Details LastModified Time What is your level of alcohol consumption? Occasional Information not available 12/21/2015 Are you currently employed? Yes Information not available 12/21/2015 Do you have difficulty doing errands alone? No Information not available 12/21/2015 Are you able to care for yourself? 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 Information not available 12/21/2015 Do you have difficulty dressing [...] virus, quadrivalent, preservative 6 completed Not Available [facility] 03/14/2019 02:32:36 Past Encounters Encounter ID Performer Location Encounter Start Date Encounter Closed Date Diagnosis/Indication Diagnosis SNOMED-CT Code Diagnosis ICD10 Code Diagnosis Note [id number] Joan Mcneal MD [facility] (Adult Med) [address] [place] [phone] 12/21/2015 14:48:02 12/21/2015 17:59:29 Depressive disorder 61286095 F33.8 Per patient, well controlled with Wellbutrin 150mg SRWill continue Anxiety 93000538 F41.9 Adult heal th examination 278654863 Z00.01 30YO female here to establish care. Only complaints are depression and anxiety Active or passive immunization 147607184 Z23 [id number] MD Roxie Abernathy (Adult Med) [address] [place] [id number] 07/18/2016 08:33:47 07/18/2016 17:35:30 Overweight 284343282 E66.3 Advised 30 minutes of exercise 5 days/week Advised to not drink her calories Advised 3 balanced meals/day with plenty of fruits and vegtables Venereal d isease screening 747344432 Z11.3 Depressive disorder 3548 9007 F33.8 d/w wellbutrin Advised that if she feels like things change to make an appointmen tAdvised she can make a counseling or psych appointmen t at the front here without seeing me for a referral; however, she states that she feels great at this time Generalize d anxiety disorder 81534768 F41.1 d/w sparkle Advised that if she feels like things [...] *SELF PAY* Jimmy land Olesya 07/18/2016 1 [employer] [id number] Juan Ramon Olesya [id number] Bethany Olesya Notes Date Note Type Note Provider Name and Address Organization Details Recorded Time 12/21/2015 text/html Here to [facility]. Only complaints are anxiety/depressio n Rula Coleman PA-C Attn: Accounting,[address] [place], [address], [facility] 12/21/2015 18:21:25 07/18/2016 text/html 31YO female here [...] have tonsils. Rula Coleman PA-C Attn: Accounting,[address] [place], [address], [facility] 07/18/2016 11:15:18 OBGyn Episode No OBEpisode recorded.
--- OUTSIDE RECORDS SUMMARY | 2024-07-24 10:10 | XMS_ITS | Referral Summary ---
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) 06/26/2024 Telephone [facility] Cardiology [address] [facility] Medicine 8th [place] [address] [place] [address] Sydney Padilla from Last 3 Months Allergies Active Allergy [...] 01/30/2024 Assessment & Plan (01/30/2024 10:11 AM ENVIRONMENTAL SCIENTIST): -pt self reports trichiasis LLL; self-treated with epilation 2 days ago -no trichiatic lashes identified today -ed pt not to epilate lashes until appt with oculoplastics -RTC 4-6 weeks oculoplastics for eyelash electrolysis LLL 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] 11/07/2023 Assessment & Plan (01/30/2024 10:09 AM ENVIRONMENTAL SCIENTIST): -pt c/o ice pick pain shooting through [...] qhs OU -RTC next available cornea at [facility] -h/o complete resolution with LATIA 8.4 BCL [...] of symptoms x 4 days -discussed terminal clerk tx with a course of doxy po [...] into the office tomorrow d/t work) -discussed terminal clerk tx with a course of doxy po [...] for consideration of a referral to a ship boss for a transesophageal echocardiogram as well as extended bus monitor to exclude paroxysmal atrial fibrillation. In [...] Plan of Treatment Not on file [place] Sub[place] Plan / Payer (Ef fective 2020-Present) Name:Bethany Dacosta Relation to Subscriber:Self Name:Bethany Dacosta Payer ID:[id number] (NAIC) Type: OTHER Address: [address] [place] [address] [facility] HMO/PPO Address: [address] [address] [place] [address] BLUE ACCESS [place] BLUE ACC CHOICE OOS Member Subscriber Plan / Payer (Ef fective 2022-Present) Name:OlesyaBethany Relation to Subscriber:Spouse Name:JUAN RAMON DACOSTA Date of :1987 (Home) Address: [address] [place] [address] Payer ID:[id number] (NAIC) Type: ALLIANCE Address: [address] [facility] HMO/PPO Address: [address] [address] [place] [address] Care Teams Seafood Preparer Relationship Specialty Start Date End Date Lisa Pires MD [address] [place] [address] PCP - General Family Medicine 06/17/20
--- OUTSIDE RECORDS SUMMARY | 2024-07-24 10:10 | XMS_ITS | Encounter Summary ---
Author Organization [facility] Health Address [address] [facility] [place] [address] Care Team Providers Care Dishwashing Machine Repairer Name Role Phone Cheryl Calvin MD Unavailable [phone] Koby Shah DO Unavailable Lisa Pires MD Primary Care Provider U Sariah Eden PA-C Primary Care Provider [phone] Encounter Details Date Type Department Care Team (Late Contact Info) Description 01/01/2014 Therapy Visit EXTERNAL NON-[facility] DEPT Unknown, Provider Social History Tobacco Use Types Packs/Day Years Used Date Smoking Tobacco: Never Smokeless Tobacco: Never Alcohol Use Standard Drinks/Week Comments No 0 (1 standard drink = 0.6 oz pur e alcohol) Comments No Sex and Gender Information Value Date Recorded Sex Assigned at Not on file Legal 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 Gender Identity Not on file Sexual Orientation Not on file documented as of this encounter Plan of Treatment Upcoming Encounters Date Type Department Care Team (Late Contact Info) Description 09/29/2024 10:40 AM CDT Office Visit [facility] Health Neurosciences [address] [place], [place] [phone] Pavan Hernandez MD [address] [place], [place] [phone] documented as of this encounter Visit Diagnoses Not on filedocumented in this encounter Care Teams Dishwashing Machine Repairer Relationship Specialty Start Date End Date Lisa Pires MD [address] [place] [address] PCP - General Family Medicine 04/16/23 05/25/24 Sariah Luo PA-C [address] [place] [address] PCP - General 05/26/24 Cheryl Calvin MD Orthopedic Surgery 10/31/11 Koby Shah DO Orthopedic Surgery 09/09/12 documented as of this encounter
--- NOTE | 2024-07-24 10:21 | EST_ITS ---
Patient Info Name: Bethany Dacosta Age: 39 years : 1985 Gender: Female Ht: 65 in Wt: 210 lbs BSA: 2.13 m2 HR: 78 bpm BP: 152 / 71 mmHg Exam Date: 07/24/2024 10:21 AM Patient Status: O Admit Date: 07/24/2024 Exam Type: CA stress test treadmill A treadmill exercise stress test was performed. Staff Referring Physician: Chetna Julio Attending Provider: Damir Balderas DO Exercise Physician: Damir Balderas DO Summary 1. 1. Negative Damon exercise stress test for ischemic ST changes by ECG criteria. 2. 2. Reduced functional capacity, achieving 8 METs of workload. 3. 3. Baseline hypertension with hypertensive response to exercise. 4. 4. Appropriate HR response to exercise. 5. 5. Appropriate HR recovery at 1 minute post exercise. 6. 6. No imaging with stress testing. 7. 7. Patient informed of the above results. Protocol: Damon Stress ECG Details Stage: REST Duration (min): 1 min : 42 sec Speed (mph): 0.0 Grade (%): 0 HR (bpm): 77 SBP (mmHg): 152 DBP (mmHg): 71 METS: --- Stage: REST Duration (min): 7 min : 12 sec Speed (mph): 0.0 Grade (%): 0 HR (bpm): 76 SBP (mmHg): 152 DBP (mmHg): 71 METS: --- Stage: STAGE 1 Duration (min): 1 min : 0 sec Speed (mph): 1.7 Grade (%): 10 HR (bpm): 117 SBP (mmHg): 152 DBP (mmHg): 71 METS: --- Stage: STAGE 1 Duration (min): 2 min : 0 sec Speed (mph): 1.7 Grade (%): 10 HR (bpm): 133 SBP (mmHg): 152 DBP (mmHg): 71 METS: --- Stage: STAGE 1 Duration (min): 3 min : 0 sec Speed (mph): 1.7 Grade (%): 10 HR (bpm): 137 SBP (mmHg): 122 DBP (mmHg): 44 METS: --- Stage: STAGE 2 Duration (min): 1 min : 0 sec Speed (mph): 2.5 Grade (%): 12 HR (bpm): 140 SBP (mmHg): 122 DBP (mmHg): 44 METS: --- Stage: STAGE 2 Duration (min): 2 min : 0 sec Speed (mph): 2.5 Grade (%): 12 HR (bpm): 144 SBP (mmHg): 122 DBP (mmHg): 44 METS: --- Stage: STAGE 2 Duration (min): 3 min : 0 sec Speed (mph): 2.5 Grade (%): 12 HR (bpm): 152 SBP (mmHg): 122 DBP (mmHg): 44 METS: --- Stage: STAGE 3 Duration (min): 0 min : 48 sec Speed (mph): 3.4 Grade (%): 14 HR (bpm): 163 SBP (mmHg): 122 DBP (mmHg): 44 METS: --- Stage: RECOVERY Duration (min): 0 min : 11 sec Speed (mph): 1.5 Grade (%): 0 HR (bpm): 164 SBP (mmHg): 122 DBP (mmHg): 44 METS: --- Stage: RECOVERY Duration (min): 1 min : 11 sec Speed (mph): 0.0 Grade (%): 0 HR (bpm): 125 SBP (mmHg): 122 DBP (mmHg): 44 METS: --- Stage: RECOVERY Duration (min): 2 min : 11 sec Speed (mph): 0.0 Grade (%): 0 HR (bpm): 101 SBP (mmHg): 122 DBP (mmHg): 44 METS: --- Stage: RECOVERY Duration (min): 3 min : 11 sec Speed (mph): 0.0 Grade (%): 0 HR (bpm): 95 SBP (mmHg): 222 DBP (mmHg): 93 METS: --- Stage: RECOVERY Duration (min): 4 min : 12 sec Speed (mph): 0.0 Grade (%): 0 HR (bpm): 96 SBP (mmHg): 222 DBP (mmHg): 93 METS: --- Stage: RECOVERY Duration (min): 5 min : 11 sec Speed (mph): 0.0 Grade (%): 0 HR (bpm): 93 SBP (mmHg): 118 DBP (mmHg): 85 METS: --- Stage: RECOVERY Duration (min): 5 min : 32 sec Speed (mph): 0.0 Grade (%): 0 HR (bpm): 86 SBP (mmHg): 118 DBP (mmHg): 85 METS: --- Rest HR: 76 bpm Peak HR: 164 bpm Rest Sys BP: 152 mmHg Peak Sys BP: 222 mmHg Max Pred HR: 183 bpm % Max Pred HR: 90 % Target HR: 156 bpm Max RPP: 36,408 bpm*mmHg Doan Score: -2 BP Response: Patient exhibited a hypertensive response with stress Termination Reason: Reached target heart rate or workload Cardiac Symptoms: Chest pain, Shortness of breath Max ST Seg Deviation: -1.80 mm Total Time: 6 min : 48 sec Rest Elizabeth BP: 71 mmHg Peak Elizabeth BP: 93 mmHg Angina Score: None Total METS: 8.3 Resting ECG Sinus rhythm. Stress ECG No ST changes. Arrhythmias None. Report Signatures
== END 2024-07-24 09:52 | disposition home or self-care (01) ==
LOC: ANHCARD 09:57
PROVIDERS: PCP Family Medicine; Visit Provider Internal Medicine Cardiovascular Disease
DX: R07.9 Chest pain, unspecified (principal); I10 Essential (primary) hypertension
CPT/HCPCS: 93017

== ENCOUNTER 2024-09-02 00:23 | Day surgery (SDC) | payer BC, SELFPAY ==
[2024-08-25 13:14] VITALS: BMI 33.7
--- NOTE | 2024-08-25 13:26 | PC.NURSE ---
Report to the Outpatient Waiting Room, entrance under the green pavilion located off [facility], at time __1215 on date _09/02/24_. Planned Procedure Time: _1415__.? Time changes happen often and if your time is changed the preop area will call you the afternoon before. - You and your visitor will be asked to self-screen and do not enter if you have any COVID symptoms. Please call surgeon if you need to reschedule. - A mask is optional within the hospital at this time. Patients may have clear liquids (water, carbonated beverages, clear teas, apple juice) until 3 hours prior to surgery with a maximum of 20 ounces. - No food from midnight until time of surgery and no smoking, or chewing tobacco (or any form of nicotine). No chewing gum, candy or mints. - Infants may have breast milk until 4 hours before surgery, infant formula 6 hours prior to surgery. - Children will be allowed to drink immediately following surgery.? If applicable, please bring a bottle or sippy cup to assist with drinking. Juice, water, soda, and popsicles are readily available.? For infants on formula, please bring formula the day of surgery.? Pacifiers are allowed. Take only the following medications with a SIP of water on the morning of surgery: __NONE DO NOT STOP ANY OF YOUR OTHER PRESCRIPTION MEDICATIONS PRIOR TO SURGERY EXCEPT THE FOLLOWING Hold all vitamins and supplements for 3 days per anesthesiologist. Medications to discontinue per physician ASA- 5 DAYS PRIOR TO SURGERY Date to take last dose Please no make-up, nail welsh, hairspray, perfume, deodorant, or body powder the day of surgery.? No jewelry (including any body piercings) or valuables the day of surgery, leave them at home.? Please take a shower or bath the night before, or the morning of, surgery with an antibacterial soap.? Wear comfortable, loose fitting clothing.? Children are encouraged to wear pajamas. - Jewelry must be removed prior to entering the operating room.? Rings and piercings that are not removed may be cut off. - The hospital will not accept responsibility for valuables.? - Please leave all valuables, including medications, at home the day of surgery. If you are going home after surgery, a licensed class b truck driver must drive you home.? - NO public transportation without another adult if you receive anesthesia. - We recommend that an adult stay with you for 24 hours following discharge. - We also recommend that you do not drive, make important decision, drink alcoholic beverages, or take any drugs that were not prescribed by your health care provider for at least 24 hours after your discharge time. For Pediatric surgeries, we recommend two adults accompany the child home. Follow any additional instructions given to you from your surgeon. Telephone instructions given to PATIENT___and asked if any additional questions and then verbalized understanding. Patient advised to call surgeon office or pre surgery nurse liaison [phone] if any additional questions.
--- OUTSIDE RECORDS SUMMARY | 2024-09-02 00:26 | XMS_ITS | Data Portability ---
Author Organization [facility] Address [address] [facility] [place] [address] Care Team Providers Care General Assignment Reporter Name Role Phone CHARITY WOLF Sales Data Analyst Assessment No assessment recorded. Plan of Treatment Reminders Order Date Submit Date Provider Last Modified By Organization Details Last Modified Time Details Appointments None recorded. Lab CMP, serum or plasma 2016 017 [facility], [address] [place] [address], [facility] [address], [place], [address], 7 09:14:26 lipid panel, serum 2016 017 [facility], [address] [place] [address], [facility] [address], [place], [address], 7 09:14:25 RPR (rapid plasma reagin), serum 2016 017 [facility], [address] [place] [address], [facility] [address], [place], [address], 7 09:14:27 hepatitis panel (A+B+C), acute, serum 2016 017 [facility], [address] [place] [address], [facility] [address], [place], [address], 7 09:14:27 HIV 1+2 AB + HIV 1 p24 Ag, qualitative immunoassay , serum 2016 017 [facility], [address], [address], [place], [address], 7 09:14:27 CT + NG + TV, DNA, urine/swab 2016 017 [facility], [address], [address], [place], [address], 7 09:14:27 urinalysis, dipstick 2015 016 In-Office Order, Internal Use Only DO Not Attach Compendium DO Not Attach Compendium, Do Not Delete/merge, [id number] 6 04:29:55 Referral None recorded. Procedures None recorded. Surgeries None recorded. Imaging None recorded. Medication Orders bupropion HCl 150 mg tablet,12 hr sustained-r elease(smok ing deterrent) 2015 016 eewig Not available 6 12:20:05 Patient TargetsNo targets recorded. Patient Instructions Encounter Date Encounter Id Patient Instructions Last Modified By Organization Details Last Modified Time 12/21/2015 [id number] Will sign ORLIN from Gabriel Ewing at [facility] in [place] - last 2 office notes and recent labs Will sign ORLIN for last pap smear and labs from Charity Wolf at [facility] Patient currently does not have insurance - will do annual visit for OBGYN and IM together d/t cost annually in July - she is switching to [facility] for both OBGYN and IM d/t cost [email or web address] Not available 12/21/2015 18:20:39 Reason for Referral None Reported. Results Created Date Observation Date Name Description Value Unit Range Abnormal Flag Note LastModifiedBy Organization Detail LastModifiedTime 12/21/19 16 12/21/2015 urina lysis , dipst ick Leukocytes Trace Not Available In-Offi ce Order Internal Use Only DO Not Attach Compendium DO Not Attach Compendium, Do Not Delete/merge, [id number] 12/21/2015 15:31:47 12/21/19 16 12/21/2015 urina lysis [...] 12/21/2015 urina lysis , dipst ick Specific [place] 1.010 Not Available In-Off ice Order Internal [...] DO Not Attach Compendium, Do Not Delete/merge, [id number] 12/21/2015 15:31:47 12/21/19 16 12/21/2015 urina lysis , dipst ick Appearance Clear Not Available In-Offi ce Order Internal Use Only DO Not Attach Compendium DO Not Attach Compendium, Do Not Delete/merge, [id number] 12/21/2015 15:31:47 12/21/19 16 12/21/2015 urina lysis , dipst ick Color Yellow Not Available In-Office Order Internal Use Only DO Not Attach Compendium DO Not Attach Compendium, Do Not Delete/merge, [id number] 12/21/2015 15:31:47 08/28/19 17 XR, chest , 2 view No observ ation record ed. [email or web address] Not Available 2016 12:56:18 Result Notes None recorded. 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 Active 2015 cannot feel right leg from knee down unless she is lying down and then she feels like a cement block is on it - has seen neurology, PT, pain management - would rather just deal with it Rula Coleman PA-C Attn: Accounting ,[address] [place], [address] , [facility] 6 15:54:56 Generaliz ed anxiety disorder 40384249 Active 2015 Rula Coleman PA-C Attn: Accounting ,[address] [facility], [place], [address] , [place] [facility] 6 15:56:28 Overweigh t 948215796 Active 2016 Rula Coleman PA-C Attn: Accounting ,[address] [place], [address] , [place] [facility] 7 11:13:44 Problem Notes None recorded. Procedures Surgical History Date Name Laterality Status Provider Name and Address Organization Details Recorded Time 08/05/19 15 Tonsillectomy completed Rula Coleman PA-C Attn: Accounting, [place], [address], [facility] 12/21/2015 16:08:27 02/25/19 14 Dilation and Curettage completed SLIME Martinez - [facility] 12/21/2015 15:19:22 Imaging Results None recorded. Procedure Notes None recorded. Medical Equipment None Reported. Allergies Allergen ID Allergen Name Allergen Category Reaction Reaction Severity Criticality Documentation Date Start Date Code Code System Note Provider Name and Address Organization Details Recorded Time 71853 morphine medicatio n other severe Not available 12/21/2015 7052 RxNorm SLIME [place], [place] - [facility] 6 15:14:53 60894 Celexa medicatio n vomiting Not available Not available 12/21/2015 80224 8 RxNorm [place], [place] - [facility] 6 15:15:09 83864 latex environme nt,medica tion rash Not available Not available 12/21/2015 49144 91 RxNorm [place] - [facility] 6 15:15:24 15546 adhesive environme nt,medica tion photosens itivity Not available Not available 12/21/2015 81093 UNK SLIME [place], [place] - [facility] 6 15:15:33 Medications Name Sig Start Date Stop Date Status Note LastModified by Organization Details LastModified Time Mirena 21 mcg/24 hr (up to 8 years) 52 mg intrauterin e device Take 1 device by intrauter ine route. 2013 active Not Available Not Available Not Avai peter bupropion HCl XL 150 mg 24 hr [...] Heart rate Respiratory rate Body temperature Systolic And Diastolic Provider Name and Address Organization Details Last Updated DateTime 7 168.91 cm 11702.5 6 g 25.9 kg/m2 76 /min 18 /min 98.1 [degF] 100/60 mm[Hg] Jose Xie [facility] 7 09:05:42 Date Recorded Body height Body weight Body mass index (BMI) Heart rate Respiratory rate Body temperature Systolic And Diastolic Provider Name and Address Organization Details Last Updated DateTime 6 168.91 cm 92375.3 6 g 25.8 kg/m2 91 /min 20 /min 98.7 [degF] 92/72 mm[Hg] Chitra Jaime MA [facility] 6 15:13:58 Social History Question Answer Notes LastModified by Organizat ion Details LastModified Time Tobacco Smoking Status Never Smoker Chitra Jaime MA [facility] [place], [facility] 12/21/2015 15:18:05 Do You [...] not available 12/21/2015 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 Information not available 12/21/2015 Do you have [...] virus, quadrivalent, preservative 6 completed Not Available [facility] 03/14/2019 02:32:36 Past Encounters Encounter ID Performer Location Encounter Start Date Encounter Closed Date Diagnosis/Indication Diagnosis SNOMED-CT Code Diagnosis ICD10 Code Diagnosis Note [id number] [facility] [address] [place] [id number] 12/21/2015 14:48:02 12/21/2015 17:59:29 Depressive disorder 94825122 F33.8 Per patient, well controlled with Wellbutrin 150mg SRWill continue Anxiety 01353026 F41.9 Adult heal th examination 110330941 Z00.01 30YO female here to establish care. Only complaints are depression and anxiety Active or passive immunization 490832605 Z23 [id number] MD [facility] Abernathy (Adult Med) [address] [place] [id number] 07/18/2016 08:33:47 07/18/2016 17:35:30 Overweight 009750448 E66.3 Advised 30 minutes of exercise 5 days/week Advised to not drink her calories Advised 3 balanced meals/day with plenty of fruits and vegtables Venereal d isease screening 877689143 Z11.3 Depressive disorder 3548 9007 F33.8 d/w wellbutrin Advised that if she feels like things change to make an appointmen tAdvised she can make a counseling or psych appointmen t at the front here without seeing me for a referral; however, she states that she feels great at this time Generalize d anxiety disorder 83354158 F41.1 d/w wellbutrin Advised that if she [...] None Recorded Advance Directives Directive N: Payers Insurance Date Sequence Insurance Name Policy Number Policy Joseph Covered Member ID Joseph Member ID Guarantor Name 12/21/2015 SLIDING FEE SCHEDULE - DISCOUNT Bethany Dacosta 07/18/2016 1 *SELF PAY* Jimmy Dacosta 07/18/2016 1 [employer] [id number] Juan Ramon Dacosta [id number] Bethany Dacosta Notes Date Note Type Note Provider Name and Address Organization Details Recorded Time 12/21/2015 text/html Here to [facility]. Only complaints are anxiety/depressio n Rula Coleman PA-C Attn: Accounting,[address] [facility], [place], [address], [facility] - [facility] 12/21/2015 18:21:25 07/18/2016 text/html 31YO female here [...] have tonsils. Rula Coleman PA-C Attn: Accounting,[address] [facility], [place], [address], [place] [facility] 07/18/2016 11:15:18 OBGyn Episode No OBEpisode recorded.
--- OUTSIDE RECORDS SUMMARY | 2024-09-02 00:26 | XMS_ITS | Patient Health Record ---
Author Organization [facility] Address [address] [facility] [address] [place], [place] [address] Care Team Providers Care Diamond Die Maker Name Role Phone Gabriel Ewing Primary Care Provider Pollo Thompson Unavailable [phone] Migration, Provider Unavailable Unavailable Allergies Allergen (clinical [...] Date Provider Diagnosis [facility] [place] [address] [facility] [address] [place], [place] [id number] 02/08/2024 Provider Migration Plan Of Treatment No Information Insurance Providers Payer Name Payer Address Payer Phone Subscriber Number Group Number Insured Name Patient Relationship to Insured Coverage Start Date Coverage End Date Rad[facility] [address] [place] [address] [id number] Bethany Dacosta Self - patient is the insured Medical (General) History Medical History History ICD Code Pertinent Medical History: Other,
--- OUTSIDE RECORDS SUMMARY | 2024-09-02 00:26 | XMS_ITS | Encounter Summary ---
Author Organization [facility] Health Address [address] [place] [address] Care Team Providers Care Cabinet Assembler Name Role Phone Cheryl Calvin MD Unavailable [phone] Koby Shah DO Unavailable Lisa Pires MD Primary Care Provider U Sariah Eden PA-C Primary Care Provider [phone] Encounter Details Date Type Department Care Team (Late Contact Info) Description 01/01/2014 Therapy Visit EXTERNAL NON-[facility] DEPT Unknown, Provider Social History Tobacco Use Types Packs/Day Years Used Date Smoking Tobacco: Never Smokeless Tobacco: Never Alcohol Use Standard Drinks/Week Comments No 0 (1 standard drink = 0.6 oz pur e alcohol) Comments No Sex and Gender Information Value Date Recorded Sex Assigned at Not on file Legal Sex Female 1:55 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 Gender Identity Not on file Sexual Orientation Not on file documented as of this encounter Plan of Treatment Upcoming Encounters Date Type Department Care Team (Late Contact Info) Description 09/29/2024 10:40 AM CDT Office Visit [facility] Health Neurosciences [address] [place], [place] [phone] Pavan Hernandez MD [address] [place], [place] [phone] documented as of this encounter Visit Diagnoses Not on filedocumented in this encounter Care Teams Cabinet Assembler Relationship Specialty Start Date End Date Lisa Pires MD [address] [place] [address] PCP - General Family Medicine 04/16/23 05/25/24 Sariah Luo PA-C [address], [address] [place] [address] PCP - General 05/26/24 Cheryl Calvin MD Orthopedic Surgery 10/31/11 Koby Shah DO Orthopedic Surgery 09/09/12 documented as of this encounter
--- OUTSIDE RECORDS SUMMARY | 2024-09-02 00:26 | XMS_ITS | Patient Health Record ---
Author Organization [facility] Address [address] [facility] [address] [place] [address] Care Team Providers Care Hot Dip Plating Supervisor Name Role Phone Chen Oviedo Unavailable [phone] WalterAlex maciel Unavailable [phone] Allergies Allergen (clinical drug ingredient) Drug/Non Drug Allergy documented on EMR Reaction Allergy Type Onset Date Status HYCOMINE (HYDROCODONE-PPA) (uncoded) Unknown Allergy 09/11/2019 Active phenol Chloraseptic Unknown Drug Allergy 09/11/2019 Act salo Latex Latex Unknown Allergy 09/11/2019 Active morphine Morphine Unknown Drug Allergy 09/11/2019 Active Results Component Value Reference Range Notes UDT Reviewed date:08/21/2024 03:20:21 PM Interpretation: Performing Lab: Notes/Report: THC n 0 - 50 ng/ml Cocaine n 0 - 300 ng/ml Amphetamine n 0 - 1000 ng/ml Buprenorphine (BUP) n 0 - 10 ng/ml Secobarbital (Bar) n 0 - 300 ng/ml Oxazepam (BZO) n 0 - 300 ng/ml 9-lhpqxwlkcl-0,7-qqhwemvv-9,3-diphenylpyrrolidine (SHANNON P) n 0 - 300 ng/ml Methamphetamine (MET) n 0 - 1000 ng/ml Methylenedioxymethamphetamine (MDMA) n 0 - 500 ng/ml Morphine (MOP 300/LPN9408) n 0 - 300 ng/ml Methadone (MTD) n 0 - 300 ng/ml Phencyclidine (PCP) n 0 - 25 ng/ml Nortriptyline (TCA) n 0 - 1000 ng/ml Oxycodone n 0 - 300 ng/ml x n 0 - 300 ng/ml UDT Reviewed date:01/14/2024 11:17:37 AM Interpretation: Performing Lab: Notes/Report: THC NEG 0 - 50 ng/ml Cocaine NEG 0 - 300 ng/ml Amphetamine NEG 0 - 1000 ng/ml Buprenorphine (BUP) NEG 0 - 10 ng/ml Secobarbital (Bar) NEG 0 - 300 ng/ml Oxazepam (BZO) NEG 0 - 300 ng/ml 0-lorenetavd-4,5-eafspdlv-9,3-diphenylpyrrolidine (SHANNON P) NEG 0 - 300 ng/ml Methamphetamine (MET) NEG 0 - 1000 ng/ml Methylenedioxymethamphetamine (MDMA) NEG 0 - 500 ng/ml Morphine (MOP 300/[id number]) NEG 0 - 300 ng/ml Methadone (MTD) NEG 0 - 300 ng/ml Phencyclidine (PCP) NEG 0 - 25 ng/ml Nortriptyline (TCA) NEG 0 - 1000 ng/ml Oxycodone NEG 0 - 300 ng/ml x NEG 0 - 300 ng/ml Reason For Referral No Information Medications Medication SIG (Take, Route, Frequency, Duration) Notes Start Date End Date Status Amitriptyline HCl 10 MG 1 tablet at bedt karli Orally Once a day; Duration: 90 days Active Venlafaxine HCl 37.5 MG 1 tablet with fo od Orally Once a day; Duration: 90 days Active clonazePAM 0.5 MG 0.5 tablet Orally Once a day; Duration: 30 days taking over script 07/15/2024 Active Venlafaxine HCl 37.5 MG TAKE 1 TABLET BY MOUTH DAILY WITH FOOD; Duration: 90 Active clonazePAM 0.5 MG TAKE 1/2 TABLET BY MOUTH DAILY; Duration: 30 06/30/2024 Active Riboflavin 400 MG 1 tablet Orally Once a day Active Ubrelvy 100 MG 1 tablet as needed, may take second dose at least 2 hours after first dose up to 2 tablets per day as needed Orally Once a day Active Modafinil 100 MG 1 tablet in the morning Orally Once a day Active Magnesium 250 MG 1 tablet with a meal Orally Once a day Active Social History [...] Status Risk Notes Problem Generalized anxiety disorder (37918504) MIRELLA (generalized anxiety disorder) (F41.1) Active confirmed Problem Mild recurrent major depression (78219238) MDD (major depressive disorder), recurrent episode, mild (F33.0) Active confirmed Problem Posttraumatic stress disorder (90619176) Chronic post-traumatic stress disorder (PTSD) (F43.12) Active confirmed Problem Attention deficit hyperactivity disorder (195365250) Attention deficit hyperactivity disorder (ADHD), unspecified ADHD type (F90.9) Active confirmed Problem Unable to concentrate (finding) (08467157) Difficulty concentrating (R41.840) Active confirmed Vital Signs Heart Rate 90 /min 07/15/2024 Blood pressure diastolic 72 mm Hg 07/15/2024 Weight-kg 94.35 kg 07/15/2024 Blood pressure systolic 102 mm Hg 07/15/2024 Weight 208 lbs 07/15/2024 Procedures Procedure Date Ordered Date Performed Result Body Sit e ADHD Testing 07/15/2024 N/A Encounters Encounter Location Date Provider Diagnosis [email or web address] [address] [place] [address] [address] 01/14/2024 Chen Oveido MDD (major depressiv e disorder), recurrent episode, mild F33.0 ; MIRELLA (generalized anxiety disorder) F41.1 and Chronic post-traumatic stress disorder (PTSD) F43.[address] [email or web address] [address] [place] [address] [address] 04/06/2024 Chen Oviedo MDD (major depressiv e disorder), recurrent episode, mild F33.0 ; MIRELLA (generalized anxiety disorder) F41.1 and Chronic post-traumatic stress disorder (PTSD) F43.12 [email or web address] [address] [address] 07/15/2024 Chen Oviedo MDD (major depressiv e disorder), recurrent episode, mild F33.0 ; MIRELLA (generalized anxiety disorder) F41.1 ; Chronic post-traumatic stress disorder (PTSD) F43.12 ; Encounter for screening for cardiovascular disorders Z13.6 ; Encounter for screening for depression Z13.31 and Difficulty concentrating R41.840 [email or web address] [address] [place] [address] 08/19/2024 Alex Watson Attention deficit hyperactivity disorder (ADHD), unspecified ADHD type F90.9 [facility] [address] [place] [address] 08/03/2024 Chen Oviedo MDD (major depressiv e disorder), recurrent episode, mild F33.0 Assessments Encounter Date Diagnosis (ICD Code) Assessment [...] worsened nightmares -cont counseling UDT done today 08/19/2024 Attention deficit hyperactivity disorder (ADHD), unspecified ADHD type (ICD-10 - F90.9) Interpretation of Results: The ASRS v1.1 questionnaire indicates an elevated score suggesting potential hyperactive and impulsive symptoms related to ADHD, but not inattentive subtype. Cognitive Performance Summary: Planning: High score at the 79th percentile, suggesting strong ability to organize and sequence information. Spatial Working Memory: Above average performance at the 87th percentile, indicating well-preserved ability to hold and manipulate spatial information. Attention: Overall performance in attention task is within average range, with number of errors and reaction time close to typical norms. Response Inhibition: Some mild difficulty, with number of errors at 60th percentile and interference measures moderately elevated, suggesting occasional challenges suppressing incorrect or impulsive responses. Sustained Attention: Generally within typical range, although commission errors and omission errors are very low percentiles, suggesting occasional inconsistency in focus. Summary: Overall, cognitive markers are largely within or above typical range. There is some mild evidence of impulsivity in response inhibition tasks, aligned with the ASRS finding indicating hyperactive and impulsive subtype symptoms. Planning and working memory are areas of relative strength. Non-Pharmacologic Treatment Recommendations: Behavioral Strategies: Develop pause and plan techniques when feeling impulsive, including taking a breath or counting before responding. Mindfulness Training: Regular practice can improve impulse control and attention consistency by building awareness of automatic responses. Environmental Structuring: Use clear task lists, visual reminders, and minimize distractions in work and home environments. Physical Exercise: Engage in regular aerobic activity which can improve executive function and regulate hyperactivity. Cognitive Training: Practice computerized tasks or paper exercises targeting impulse control and response inhibition. Routine Building: Establish consistent daily routines and use alarms or timers to transition smoothly between tasks. Pairing these findings with a clinical interview is advised to confirm diagnosis and guide long-term strategies. Neuropsychological testing is not recommended. Consistent practice of cognitive exercises and attention regulation techniques is encouraged. 08/03/2024 MDD (major depressive disorder), recurrent episode, mild (ICD-10 - F33.0) 07/15/2024 MIRELLA (generalized anxiety disorder) (ICD-10 - F41.1) 07/15/2024 MDD (major depressive disorder), recurrent episode, mild (ICD-10 - F33.0) Amitriptyline 10mg qHS per neurology (migraines) 04/06/2024 MDD (major depressive disorder), recurrent episode, [...] (generalized anxiety disorder) (ICD-10 - F41.1) 07/15/2024 Chronic post-traumatic stress disorder (PTSD) (ICD-10 [...] worsened nightmares -cont counseling UDT done today 07/15/2024 Encounter for screening for cardiovascular disorders (ICD-10 - Z13.6) 04/06/2024 Chronic post-traumatic stress disorder (PTSD) (ICD-10 - F43.12) 07/15/2024 Encounter for screening for depression (ICD-10 [...] proper dosing schedule and importance of compliance. [place] PDMP report checked and consistent with prescription [...] ADHD Testing 07/15/2024 Next Appt Details Provider Name:Chen Radha rios, 09/09/2024 08:30:00 AM, [address], [facility] [address], [place], [address], Insurance Providers Payer Name Payer Address Payer Phone Subscriber Number Group Number Insured Name Patient Relationship to Insured Coverage Start Date Coverage End Date [employer] [address] [place] [address] [id number] BAO DACOSTA Self - patient is the insured [facility] [address] [address] [place] [address] [id number] BAO DACOSTA Self - patient is [...]
--- OUTSIDE RECORDS SUMMARY | 2024-09-02 00:27 | XMS_ITS | Referral Summary ---
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) 06/26/2024 Telephone [facility] Cardiology [address] [facility] Medicine 8th [place] [address] [place] [address] Sydney Padilla from Last 3 [...] 01/30/2024 Assessment & Plan (01/30/2024 10:11 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 REACH OPERATOR): -pt self reports trichiasis LLL; self-treated with epilation 2 days ago -no trichiatic lashes identified today -ed pt not to epilate lashes until appt with oculoplastics -RTC 4-6 weeks oculoplastics for eyelash electrolysis LLL 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] 11/07/2023 Assessment & Plan (01/30/2024 10:09 AM HIGH REACH OPERATOR): -pt c/o ice pick pain shooting through [...] qhs OU -RTC next available cornea at [facility] -h/o complete resolution with LATIA [...] resolution of symptoms x 4 days -discussed homicide squad captain tx with a course of doxy po [...] into the office tomorrow d/t work) -discussed homicide squad captain tx with a course of doxy po [...] for consideration of a referral to a bingo cashier for a transesophageal echocardiogram as well as extended hall monitor to exclude paroxysmal atrial fibrillation. In [...] right-sided numbness. She has been hospitalized at [facility] with what sounds to be extensive diagnostic [...] Plan of Treatment Not on file [place] Member Subscriber Plan / Payer (Ef fective 2022-Present) Name:Bethany Dacosta Relation to Subscriber:Spouse Name:JUAN RAMON DACOSTA Date of :1987 (Home) Address: [address] [place] [address] Payer ID:[id number] (NAIC) Type:[facility] Address: [address] Care Teams Web Publisher Relationship Specialty Start Date End Date Lisa Pires MD [address] [facility] [address] [place] [address] PCP - General Family Medicine 06/17/20
--- OUTSIDE RECORDS SUMMARY | 2024-09-02 00:27 | XMS_ITS | Clinical Summary ---
Author Organization [facility] Address [address] [place] [address] Care Team Providers Care Interior Design Program Chair Name Role Phone Lisa Pires MD Primary Care Provider [phone] Social History Tobacco Use Types Packs/Day Years [...] Years 05/02/2017 Cervical Cancer Screening [facility] HPV 05/02/2017 COVID-19 Vaccine ( - [...] file Type:Not on file Address: [address] [place] [id number] [employer] Care Teams Interior Design Program Chair Relationship Specialty Start Date End Date Lisa Pires MD [address] [facility] [address] [place] [address] PCP - General FAMILY PRACTICE 12/26/21
--- OUTSIDE RECORDS SUMMARY | 2024-09-02 00:27 | XMS_ITS | Clinical Summary ---
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] (Primary Dx) 06/26/2024 Telephone [facility] Cardiology [address] [facility] Medicine 8th [place] [address] [place] [address] Sydney Padilla from Last 3 [...] season) 2023 08/02/2020, 07/12/2020 Influenza Vaccine (#1) 2024 , 12/06/2011 HPV Vaccines Aged Out No longer eligi ble based on patient's age to complete this topic Pneumococcal vaccine <65 Aged Out No longer eligible based on patient's age to complete this topic Insurance [employer] [place] [employer] [place] [facility] Member Subscriber Plan / Payer (Ef fective 2020-Present) Name:Bethany Dacosta Relation to Subscriber:Self Name:Bethany Dacosta Payer ID:[id number] (NAIC) Type: OTHER Address: [facility] [address] [place] [id number] BLUE [facility] CHOICE OOS Member Subscriber Plan / Payer (Ef fective 2022-Present) Name:Bethany Dacosta Relation to Subscriber:Spouse Name:JUAN RAMON DACOSTA Date of :1987 (Home) Address: [address] [place] [phone] Payer ID:[id number] (NAIC) Type: [employer] Address: [address] Care Teams Thermocouple Tester Relationship Specialty Start Date End Date Lisa Pires MD [address] [facility] [address] [place] [address] PCP - General Family Medicine 06/17/20
--- OUTSIDE RECORDS SUMMARY | 2024-09-02 00:27 | XMS_ITS ---
Author Organization [facility] Address [facility] Reese Mckenzie [address] [id number] Care Team Providers Care Vamp Stitcher Name Role Phone Gabriel Ewing Primary Care Provider Pollo Thompson Unavailable [phone] Migration, Provider Unavailable Unavailable Allergies Allergen (clinical [...] Location Date Provider Diagnosis [facility] [place] [address] Reese Mckenzie [address] [id number] 02/08/2024 Provider Migration Plan Of Treatment No Information Progress Notes * Bethany DACOSTADOB:1985 (39 yo F)Acc No.[id number]:02/08/2024 Patient: Bethany SANTIAGO Provider: Coy matamoros Migration :1985 A ge:38 Y S ex:Female Date:02/08/2024 Address:[address] [place], [place] [id number] Pcp:Gabriel Ewing Subjective: * Chief Complaints: * 1 . Multum To Medispan Conversion Encounter. * Medical History: * Medications: T aking buPROPion HCl ER (SR) 150 MG Tablet Extended Release 12 Hour 1 tab(s) orally 2 times a day * Allergies: M orphine: convulsions/loss of consciousness - Allergy. Objective: * Vitals: * Physical Examination: Assessment: Plan: * Treatment: * Images: * Electronic signature of Prov ider Migration on 09/02/2024 at 12:27 AM CDT Sign off status: Pending * Provider: oCy matamoros Migration Date: 1 04/10/2023 Generated for Gagan morrell/Ruby/Carmen on: 0 09/02/2024 12:27 AM CDT
--- OUTSIDE RECORDS SUMMARY | 2024-09-02 00:27 | XMS_ITS | Clinical Summary ---
Author Organization [facility] Address [address] [place] [address] Care Team Providers Care Construction Producer Name Role Phone Cheryl Calvin MD Unavailable [phone] Koby Shah DO Unavailable Sariah Luo PA-C Primary Care Provider [phone] Source Comments [facility],non-owned Affiliates and Associated Physician Practices is amultiple site organization consisting of ambulatory clinics and hospital sitesin [place], [place], [place] and [place]. This disclosure is being madepursuant to the Care Everywhere program and may not contain all information available regarding this patient. 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 Gender Identity Not on file Sexual Orientation [...] Description 09/29/2024 10:40 AM CDT Office Visit [facility] Neurosciences [address] [place], [place] [phone] Pavan Hernandez MD [address] [place] [address] Health Maintenance Due Date Last Done Comments HIV SCREENING 05/02/2002 HEPATITIS C SCREENING 04/28/2005 DTAP/TDAP/TD VACCINES (1 - Tdap) 05/02/2006 HEPATITIS B VACCINE (1 of 3 - 19+ 3-dose series) 05/02/2006 PAP SMEAR 07/26/2014 07/27/2011 COVID-19 VACCINE (3 - 2023-2 5 season) 2023 08/02/2020, 07/12/2020 DEPRESSION SCREENING 02/26/2024 INFLUENZA VACCINE (#1) 2024 6, 12/06/2011 ZOSTER VACCINE (1 of 2) 05/02/2037 [...] age to complete this topic Insurance AN[employer]M Member Subscriber Plan / Payer (Ef fective 2022-Present) Name:Bethany Dacosta V Relation to Subscriber:Self Name:Bethany Dacosta V Payer ID:[id number] (NAIC) Type:PPO Address: [address] [place] [phone] [facility] ANTHEM Care Teams Construction Producer Relationship Specialty Start Date End Date Sariah Luo PA-C [address] [place] [address] PCP - General 05/26/24 Cheryl Calvin MD Orthopedic Surgery 10/31/11 Koby Shah DO Orthopedic Surgery 09/09/12
--- NOTE | 2024-09-02 08:53 | PM.IMHP ---
H&P: [facility] History of Present Illness Date/Time: 09/02/24 08:53 Chief Complaint: Heavy periods Narrative: 39 y/o nulligravida with heavy, painful menses lasting 4 days each. Sometimes she has nausea with the bleeding. She is also having some intermenstrual bleeding now. Her has had a vasectomy and she does not desire future childbearing. Ultrasound exam shows a small 1.3 cm myoma. The endometrial complex is unremarkable. Adnexa are unremarkable. Review of Systems Review of Systems: All systems reviewed & are unremarkable except as noted in HPI and below [facility] Past Medical History Medical History RUQ abdominal pain BMI 32.0-32.9,adult Hypersomnolence Narcolepsy Paresthesia of skin Abdominal bloating Hoarse voice quality Dysphonia Right flaccid hemiplegia Aphasia Acute right-sided weakness Anemia Numbness and tingling of right face Cervico-brachial neuralgia Occipital neuralgia Arm paresthesia, right Facial paresthesia JONO (obstructive sleep apnea) Chest pain at rest Complex posttraumatic stress disorder Thyroid enlargement Chronic headaches Surgical History Surgical History H/O dilation and curettage Family History Family History Grandparent Diabetes mellitus Breast cancer Father Neuropathy Mother Neuropathy Family history unknown Social History Social History Social History: , her is the durable POA. She is a full code. She has one child. She works at [employer] which is a [employer] for disabled people. The patient occasionally drinks alcohol socially. She is a lifelong nonsmoker. No marijuana or illicit drugs. 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 Gender identity (if verbalized by the patient): Female Sexual Orientation (if Verbalized by the Patient): Straight or Heterosexual Spiritual care concerns: No Meds Home Medications and Allergies Home Medications ?Medication ?Instructions ?Recorded ?Confirmed ?Type multivitamin-ferrous 1 tablet PO DAILY 10/20/20 08/25/24 History fumarate-folic acid 18 mg-400 mcg tablet (Centrum Women) buspirone 5 mg tablet 5 mg PO TID PRN anxiety #60 tabs 12/20/22 08/25/24 Rx riboflavin (vitamin B2) 400 mg 400 mg PO DAILY 07/26/23 08/25/24 History tablet ubrogepant 100 mg tablet (Ubrelvy) 100 mg PO ONCE PRN MIGRAINES 07/26/23 08/25/24 History clonazepam 0.5 mg tablet 0.25 mg (1/2 x 0.5 mg) PO QHS PRN 11/19/23 08/25/24 Rx insomnia 30 days #15 tabs amitriptyline 10 mg tablet 10 mg PO QHS 05/15/24 08/25/24 History sodium chloride 5 % eye ointment 1 applic EACH EYE QHS PRN EYE PAIN 05/15/24 08/25/24 History (Patti 128) aspirin 81 mg tablet,delayed 81 mg PO DAILY 06/12/24 08/25/24 History release (Adult Low Dose Aspirin) venlafaxine 37.5 mg tablet mg HS 08/25/24 History Allergies Allergy/AdvReac Type Severity Reaction Status Date / Time adhesive Allergy Intermediate RASH Verified 08/25/24 13:10 latex Allergy Intermediate RASH Verified 08/25/24 13:10 hydrocodone Allergy Unknown Itching Verified 08/25/24 13:10 morphine Allergy Unknown Siezure Verified 08/25/24 13:10 phenol Allergy Unknown Swelling Verified 08/25/24 13:10 nortriptyline AdvReac Severe suicidal Verified 08/25/24 13:10 ideation bupropion (From Wellbutrin) AdvReac Intermediate Confusion Verified 08/25/24 13:10 citalopram AdvReac Intermediate Headache Verified 08/25/24 13:10 lexapro AdvReac Severe sweats, Uncoded 08/25/24 13:10 nightmares amitriptyline AdvReac Intermediate arthralgia Uncoded 08/25/24 13:10 Exam Const: Orientation/consciousness: patient oriented x3 Other: Well-developed, well-nourished female in no acute distress. Neck: Thyroid: thyroid normal Lymphatic: no lymphadenopathy noted (in neck, axilla or inguinal nodes) Resp: Effort & Inspection: normal respiratory effort Auscultation: clear to auscultation bilaterally Cardio: Rate: regular rate Rhythm: regular rhythm Heart sounds: S1 normal heart sound present and S2 normal heart sound present GI: Other: ABD: Soft, nontender, nondistended. No guarding or rebound tenderness. No hepatosplenomegaly. : General: Yes no CVA tenderness Other: External genitalia: normal female hair distribution, without lesion. Urethral meatus: no lesion, non prolapsed. Bladder: no mass, nontender Vagina: well-estrogenized, without lesion or discharge. No cystocele or rectocele. Cervix: no lesion or discharge. Uterus: small, anteverted, freely mobile, nontender Adnexa: no mass or tenderness. Anus/perineum: no lesions, nontender Back/Spine/Pelvis: Back: no CVA tenderness Skin: General skin exam: normal color and no rashes or lesions noted Neuro: General: patient oriented x3 Extrem: Other: Extremities: nontender with no edema Psych: Mental Status: mental status grossly normal Affect: normal affect Assessment and Plan Assessment and plan (1) Menometrorrhagia: Code(s): N92.1 - Excessive and frequent menstruation with irregular cycle Status: Acute Assessment and Plan: A: Menometrorrhagia with dysmenorrhea. P: We have reviewed further attempts at medical management vs.surgical treatment options. She prefers the latter. Specifically, she would like hysteroscopy, dilation and sharp curettage, and endometrial ablation. She understands that endometrial ablation is insufficient for contraception and that she may not pursue future childbearing. She understands risks of surgery to include risks of anesthesia, risks of pain, infection, bleeding, blood products, thromboembolic phenomena and damage to adjacent structures such as bowel, bladder, ureters, blood vessels and nerves. She understands all these risks and elects to proceed with surgery. (2) Dysmenorrhea: Code(s): N94.6 - Dysmenorrhea, unspecified Status: Acute
[2024-09-02 12:25] VITALS: BP 118/78; PULSE 84; RESP 16; TEMP 36.1; O2SAT 98
[2024-09-02] MEDS: ACETAMINOPHEN 500 MG TABLET 1000 MG PO (12:45)
[2024-09-02] MEDS: LACTATED RINGERS 1,000 ML 30 ML IV CONT (12:50)
--- NOTE | 2024-09-02 13:00 | P.PNAN_ITS ---
Anes - Initial Pre Proc Eval Procedure: Operation Date: 09/02/24 14:15 Proposed Procedures p Hysteroscopy Dilation and Curettage with Jolynn Endometrial Ablation - Levi Wolf MD Date/Time: 09/02/24 13:00 Surgeon: Levi Wolf MD Pre Op Diagnosis: Irrg bleeding Patient Data Age: 39 Gender: F Height: 1.68 m Weight: 95 kg Allergies Allergy/AdvReac Type Severity Reaction Status Date / Time adhesive Allergy Intermediate RASH Verified 09/02/24 13:00 latex Allergy Intermediate RASH Verified 09/02/24 13:00 hydrocodone Allergy Unknown Itching Verified 09/02/24 13:00 morphine Allergy Unknown Siezure Verified 09/02/24 13:00 phenol Allergy Unknown Swelling Verified 09/02/24 13:00 nortriptyline AdvReac Severe suicidal Verified 09/02/24 13:00 ideation bupropion (From Wellbutrin) AdvReac Intermediate Confusion Verified 09/02/24 13:00 citalopram AdvReac Intermediate Headache Verified 09/02/24 13:00 lexapro AdvReac Severe sweats, Uncoded 09/02/24 13:00 nightmares amitriptyline AdvReac Intermediate arthralgia Uncoded 09/02/24 13:00 Home Medications ?Medication ?Instructions ?Recorded ?Confirmed ?Type multivitamin-ferrous 1 tablet PO DAILY 10/20/20 09/02/24 History fumarate-folic acid 18 mg-400 mcg tablet (Centrum Women) buspirone 5 mg tablet 5 mg PO TID PRN anxiety #60 tabs 12/20/22 08/25/24 Rx riboflavin (vitamin B2) 400 mg 400 mg PO DAILY 07/26/23 09/02/24 History tablet ubrogepant 100 mg tablet (Ubrelvy) 100 mg PO ONCE PRN MIGRAINES 07/26/23 08/25/24 History clonazepam 0.5 mg tablet 0.25 mg (1/2 x 0.5 mg) PO QHS PRN 11/19/23 08/25/24 Rx insomnia 30 days #15 tabs amitriptyline 10 mg tablet 10 mg PO QHS 05/15/24 09/02/24 History sodium chloride 5 % eye ointment 1 applic EACH EYE QHS PRN EYE PAIN 05/15/24 08/25/24 History (Patti 128) aspirin 81 mg tablet,delayed 81 mg PO DAILY 06/12/24 09/02/24 History release (Adult Low Dose Aspirin) venlafaxine 37.5 mg tablet mg HS 08/25/24 History Patient hx anesthesia problems: none Family hx anesthesia problems: none Results Review: All pre-operative results and documents have been reviewed as part of the pre- operative evaluation. [facility] Past Medical History Medical History RUQ abdominal pain BMI 32.0-32.9,adult Hypersomnolence Narcolepsy Paresthesia of skin Abdominal bloating Hoarse voice quality Dysphonia Right flaccid hemiplegia Aphasia Acute right-sided weakness Anemia Numbness and tingling of right face Cervico-brachial neuralgia Occipital neuralgia Arm paresthesia, right Facial paresthesia JONO (obstructive sleep apnea) Chest pain at rest Complex posttraumatic stress disorder Thyroid enlargement Chronic headaches Surgical History Surgical History H/O dilation and curettage Family History Family History Grandparent Diabetes mellitus Breast cancer Father Neuropathy Mother Neuropathy Family history unknown Social History Social History Social History: , her is the durable POA. She is a full code. She has one child. 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 The patient occasionally drinks alcohol socially. She is a lifelong nonsmoker. No marijuana or illicit drugs. 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 Gender identity (if verbalized by the patient): Female Sexual Orientation (if Verbalized by the Patient): Straight or Heterosexual Spiritual care concerns: No Anes - Eval Final PreProcedure Day of Procedure 09/02/24 13:00 Patient weight: obese Lungs: normal air movement Airway: Mallampati scale class II Neurological: alert and oriented Last oral intake: >/= 8 hours ASA classification: III Emergent: no Anesthetic plan: proceed Anesthesia type and monitoring: general GIVS and standard monitoring Results Review: All pre-operative results and documents have been reviewed as part of the pre- operative evaluation. BMI 33, hx of JONO and uses a dental appliance only, hx of conversion/disorder/stress disorder noted. Pt had stress test 07/19 nml. Informed Consent: The patient's anesthetic plan and its attendant risks and benefits were discussed with the patient/family/POA. Questions were solicited and answers provided to the satisfaction of the patient/family/POA.
[2024-09-02 13:08] LABS: BEDSIDEPREGUCG Negative (Negative)
--- NOTE | 2024-09-02 13:23 | WPDHPUPDATE1 ---
History and Physical Update Update Date/Time: 09/02/24 13:23 History and Physical has been reviewed, including an updated exam of the patient. There are NO changes in the patient's condition. Risks, benefits, and alternatives have been discussed and questions answered. Patient agrees to proceed with procedure.
[2024-09-02] MEDS: LIDOCAINE 1% LOCAL INJ 10 ML VIAL INFILTRATE (13:40)
--- NOTE | 2024-09-02 14:01 | S_PTH ---
PATIENT: Bethany Dacosta V LOC: [facility]#:[id number] AGE/SX: 39/F ROOM: RE09/02/[address]: Levi Wolf MD : 1985 BED: DIS: 09/02/2024 SPEC #: [id number] RECD: 09/02/24 14:30 STATUS: ANGIE REQ #: [id number] JODY: 09/02/24 14:[address]: Levi Wolf DEPT: [facility] Surgical RECD BY: Yue Carcamo ENTERED: 09/02/24 14:30 SP TYPE: Surgical OTHR DR: Sariah Luo PA-C Tissues: A - Endometrial Curettings Procedures: Hematoxylin and Eosin Stain Gross and Microscopic Level 4
[2024-09-02] MEDS: KETOROLAC 30 MG/ML VIAL (*BKC) IV PUSH (14:02)
--- NOTE | 2024-09-02 14:07 | W.PM.PROC2 ---
Procedure Note - Detailed Date of Procedure 09/02/24 Pre-op Diagnosis Menometrorrhagia Dysmenorrhea Post-op Diagnosis Same Procedure Performed Hysteroscopy Dilation and sharp curettage Endometrial ablation Surgeon Levi Wolf MD Anesthesia MAC and Local (1% lidocaine) Findings Normal-appearing endometrial cavity. Both tubal ostia seen. Description of Procedure The patient was taken to the operating room where she was prepared and draped in the usual sterile fashion in the dorsal lithotomy position. The bladder was drained with a red rubber catheter. A sterile speculum was placed into the vagina. The anterior lip of the cervix was grasped with single-tooth tenaculum. Ten mL of 1% lidocaine was administered in a paracervical block. The cervix was then gently dilated using Hegar dilators until a 7 mm dilator could be passed. Hysteroscopy was performed using sterile saline as a distention medium. Findings are as noted above. Sharp curettage was then performed, and endometrial curettings were collected on a Telfa pad and passed off to be sent to pathology. Finally, the the Jolynn device was advanced and endometrial ablation commenced without difficulty. The device was withdrawn and a second look was taken using the hysteroscope. Excellent coverage of the endometrial cavity was noted. The tenaculum was removed. Hemostasis was excellent. Sponge, lap, needle and instrument counts were correct. The patient was awakened and taken to the recovery room in stable condition. I was present and scrubbed through the entire procedure. Implants None Estimated Blood Loss 5 Drains No Packing No Pathology Yes (Endometrial curettings) Complications None Condition Stable Disposition PACU [facility] Billing Surgery - Charge Forward: Surgery Billing
[2024-09-02 14:11] VITALS: BP 138/97; PULSE 70; RESP 14; O2SAT 100
[2024-09-02 14:40] VITALS: BP 135/51; PULSE 75; RESP 14
[2024-09-02] MEDS: oxyCODONE HCL (*CRX) 5 MG TAB IR PO (14:59)
[2024-09-02 15:10] VITALS: BP 131/85; PULSE 66; RESP 14; O2SAT 100
--- NOTE | 2024-09-02 15:22 | SUR.PHASEII ---
PATIENT OBSERVED X 20 MINUTES AFTER TAKING OXYCODONE. NO ADVERSE REACTIONS.
== END 2024-09-02 15:22 | disposition home or self-care (01) ==
PROVIDERS: PCP Physician Assistant; Visit Provider Obstetrics & Gynecology
PROC: 0U5B8ZZ Destruction of Endometrium, Via Natural or Artificial Opening Endoscopic (ICD-10-PCS; CPT 58563; principal; 2024-09-02 14:15)
DX: N92.1 Excessive and frequent menstruation with irregular cycle (principal); N94.6 Dysmenorrhea, unspecified; G89.18 Other acute postprocedural pain; D64.9 Anemia, unspecified; G47.33 Obstructive sleep apnea (adult) (pediatric); G47.10 Hypersomnia, unspecified; G47.419 Narcolepsy without cataplexy; F43.10 Post-traumatic stress disorder, unspecified; R51.9 Headache, unspecified; E66.9 Obesity, unspecified; Z68.33 Body mass index [BMI] 33.0-33.9, adult; Z79.82 Long term (current) use of aspirin; Z98.890 Other specified postprocedural states; Z80.3 Family history of malignant neoplasm of breast
CPT/HCPCS: 58563; 88305; A9270; J1885; J2003; J2250; J2405; J2704; J3010; J7120

== ENCOUNTER 2024-09-25 08:29 | Outpatient (CLI) | payer BC, SELFPAY ==
--- NOTE | ~2024-09-25 | US_ITS ---
Ankle Brachial Index with Ultrasound Dopplers and Pulse Volume Recordings Technique: Pressures in the arm and lower extremity were obtained. Additionally, arterial and pulse v olume waveforms were obtained bilaterally. Findings: Segmental pressures Right posterior tibial: 116 Right dorsalis pedis: 85 Left posterior tibial: 112 Left dorsalis pedis: 100 There are biphasic and monophasic waveforms bilaterally. JEANNA Right 1.12 Left 1.08 TBI Right 0.72 Left 0.65 Impression: ABIs within normal limits. TBI on the right is unremarkable. Low TBI on the left. Normal JEANNA = 0.9-1.3 Abnormal = below 0.9 Severe PAD = below 0.4 Mild PAD = 0.7-0.9 Moderate PAD = 0.4-0.7 Normal TBI = 0.7-1.0 Reviewed, dictated and finalized at location A. Impression: ABIs within normal limits. TBI on the right is unremarkable. Low TBI on the left. Normal JEANNA = 0.9-1.3 Abnormal = below 0.9 Severe PAD = below 0.4 Mild PAD = 0.7-0.9 Moderate PAD = 0.4-0.7 Normal TBI = 0.7-1.0
--- OUTSIDE RECORDS SUMMARY | 2024-09-25 08:32 | XMS_ITS | Encounter Summary ---
Author Organization [facility] Address [address] [place] [address] Phone Care Team Providers Care Director Digital Sales Name Role Phone Lisa Pires MD Primary Care Provider Encounter Details Date Type Department Care Team (Late st Contact Info) Description 09/04/2024 Results Follow-Up [facility] Cardiology [address] [facility] Advanced Medicine 8th [place] [address] [place] [address] Ravin Heath MD [address] [facility] [address] [place], [place] [id number] ECG 12 lead Social History Tobacco Use Types Packs/Day Years [...] Orientation Bisexual 06/21/2020 10 :34 AM CDT documented as of this encounter Plan of Treatment Upcoming Encounters Date Type Department Care Team (Latest Contact Info) Description 09/29/2024 8:30 AM CDT Hospital Encounter [facility] Electrophysiology Lab [address] [place] [address] Ravin Heath MD [address] [facility] [address] [place] [address] Palpitations 09/29/2024 8:30 AM CDT - 09/29/2024 9:50 AM CDT Surgery [facility] Electrophysiology Lab [address] [place] [address] Ravin Heath MD [address] [facility] [address] [place] [address] TILT TABLE EVALUATION documented as of this encounter Visit Diagnoses Not on filedocumented in this encounter Care Teams Director Digital Sales Relationship Specialty Start Date End Date Lisa Pires MD [address] [place] [address] PCP - General Family Medicine 06/17/20 documented as of this encounter
--- OUTSIDE RECORDS SUMMARY | 2024-09-25 08:32 | XMS_ITS | Clinical Summary ---
Author Organization [facility] Address [address] [place] [address] Care Team Providers Care Regional Driver Name Role Phone Cheryl Calvin MD Unavailable [phone] Koby Shah DO Unavailable Sariah Luo PA-C Primary Care Provider [phone] Source Comments [facility],non-owned Affiliates and Associated Physician Practices is amultiple site organization consisting of ambulatory clinics and hospital sitesin [place], [place], [place] and [place]. This disclosure is being madepursuant to the Care Everywhere program and may not contain all information available regarding this patient. Last updated 17.[facility] Allergies Active Allergy Reactions Criticality Noted Date Comments Adhesive Sensitivity 10/10/2011 Citalopram Nausea and/or Vomiting 06/02/2014 Hydrocodone Itching 04/16/2023 Latex 10/10/2011 Morphine 08/20/2013 Seizure Medications * Be aware that medications may not be up to date on this document. Alwaysverify current medications with the patient. busPIRone (Buspar) 5 MG tablet Active clonazePAM (KlonoPIN) 0.5 MG tablet 03/29/19 24 Active Magnesium 400 MG Act salo [place]-3 1000 MG Acti ve venlafaxine (Effexor) 37.5 MG tablet Take 1 (one) tablet by mouth 2 times daily 03/29/19 24 Active Multiple Vitamins-Minerals (CENTRUM WOMEN PO) A ctive clindamycin (Cleocin) 1 % lotion APPLY TOPICALLY TO FACE EVERY MORNING 07/04/19 24 Active clobetasol (Temovate) 0.05 % ointment APPLY TO THE AFFECTED AREA ON HANDS TWICE A DAY NEEDED 07/04/19 24 Active doxycycline monohydrate 50 MG capsule TAKE 1 CAPSULE BY MOUTH TWICE DAILY WITH FOOD AND WATER 07/04/19 24 Active amitriptyline (Elavil) 10 MG tablet Take 1 (one) tablet by mouth every evening 90 tablet 4 10/17/19 24 Active ubrogepant (Ubrelvy) 100 MG tabletIndications: Chronic nonintractable headache, unspecified headache type Take 1 (one) tablet by mouth daily as needed - may repeat one time for Migraine No more than 2 doses in 24 hours. 8 tablet 3 04/14/19 25 Active sodium chloride, hypertonic, (Patti 128) 5 % Apply 1/4 inch into both eyes at night 04/03/19 25 Active aspirin EC (Ecotrin) 81 MG tablet Take 1 (one) tablet by mouth once daily Active riboflavin 400 MG capsule Take 1 (one) capsule by mouth once daily 100 capsule 6 09/15/19 25 Active riboflavin 400 MG capsule Take 1 (one) capsule by mouth once daily 100 capsule 6 05/20/19 24 025 Discontin ued(Reord er) Active Problems Problem Noted Date Diagnosed Date Onychomycosis 07/22/2013 Thoracic back pain 07/02/2012 Migraine 02/12/2012 MIRELLA (generalized anxiety disorder) 11/11/2011 Panic disorder 11/11/2011 Encounters Date Type Department Care Team Description 09/14/2024 Refill [facility] [address] [facility] [address] [place] [address] Monica Crane MEDICATION REFILL 09/11/2024 Refill [facility] [address] [facility] [address] [place] [address] Pavan Hernandez MD Refill Request from Last 3 Months Immunizations Immunization Administration [...] on file Legal Sex Female 1:55 PM NURSE SPECIAL Gender Identity Not on file Sexual Orientation [...] Care Team (Late st Contact Info) Description 12/01/2024 3:40 PM CDT Office Visit [facility] Health Neurosciences [address] [facility] [address] [place] [address] Pavan Hernandez MD [address] [facility] [address] [place], [place] [id number] Health Maintenance Due Date Last Done Comments HIV SCREENING 05/02/2002 HEPATITIS C SCREENING 04/28/2005 DTAP/TDAP/TD VACCINES (1 - Tdap) 05/02/2006 HEPATITIS B VACCINE (1 of 3 - 19+ 3-dose series) 05/02/2006 HPV VACCINE (1 - 3-dose SCDM series) 05/02/2014 PAP SMEAR 07/26/2014 07/27/2011 COVID-19 VACCINE (3 [...] age to complete this topic Insurance ANTHEM ANTHEM Care Teams Regional Driver Relationship Specialty Start Date End Date Sariah Luo PA-C [address] [place] [address] PCP - General 05/26/24 Cheryl Calvin MD Orthopedic Surgery 10/31/11 Koby Shah DO Orthopedic Surgery 09/09/12
--- OUTSIDE RECORDS SUMMARY | 2024-09-25 08:32 | XMS_ITS | Referral Summary ---
Author Organization [facility] Virtual Care Address [address] [place] [phone] Phone Care Team Providers Care Directory Carrier Name Role Phone Lisa Pires MD Primary Care Provider Encounters Date Type Department Care Team Description 09/04/2024 Telephone [facility] Cardiology [address] [place] [address] 8th [place] [address] [place] [address] Ravin Heath MD 09/04/2024 Results Follow-Up [facility] [address] [place] [address] 8th [place] [address] [place] [address] Ravin Heath MD ECG 12 lead 09/04/2024 8:00 AM CDT Office Visit [facility]iology [address] [place] [address] 8th [place] [address] [place] [address] Ravin Heath MD Palpitations (Primary Dx) 07/01/2024 9:15 AM CDT Office Visit [facility] Ophthalmology [facility] Health 6th [place] [phone] Meggan Devine MD PhD 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] (Primary Dx) 06/26/2024 Telephone [facility]iology [address] [place] [address] 8th [place] [address] [place] [address] Padilla, Sydney from Last 3 Months Allergies Active Allergy [...] Phenol Other (See comments) Low 11/18/2020 Medications multivitamin/i bryce/folic acid (CENTRUM WOMEN ORAL) Take by mouth Active aspirin 81 mg enteric coated tablet Take 81 mg by mouth daily Active venlafaxine 37.5 mg tablet extended release 24hr 24 hr tablet Take 1 tablet (37.5 mg total) by mouth daily Active ubrogepant (UBRELVY) 100 mg tablet Take 1 tablet (100 mg total) by mouth once as needed for migraine May repeat dose once in 2 hours if no relief. Do not exceed 2 doses in 24 hours. Active riboflavin (Vitamin B-2) 100 mg tabletIndicati ons:Riboflavin Deficiency Take 1 tablet (100 mg total) by mouth daily Active amitriptyline (ELAVIL) 10 mg tablet Take 1 tablet (10 mg total) by mouth nightly Active busPIRone (BUSPAR) 5 mg tabletIndicati ons:Generalize d Anxiety Disorder Take 1 tablet (5 mg total) by mouth as needed Active sodium chloride 5 % ophthalmic ointmentIndica tions:Corneal Edema Apply 1/4 inch into both eyes at night 3.5 g 11 04/03/19 25 Active clonazePAM (KlonoPIN) 0.5 mg tablet Take 0.5 tablets (0.25 mg total) by mouth daily Active escitalopram (LEXAPRO) 10 mg tablet Take 1 tablet (10 mg total) by mouth daily 90 tablet 1 02/08/20 21 025 Discontinued busPIRone (BUSPAR) 5 mg tabletIndicati ons:Generalize d Anxiety Disorder Take 1 tablet (5 mg total) by mouth 3 (three) times a day 025 Discontinued(Du plicate order) ciprofloxacin (CIPRO) 500 mg tablet Take 1 tablet (500 mg total) by mouth every 12 (twelve) hours for 7 days 03/30/19 25 025 Discontinued modafiniL (PROVIGIL) 100 mg tablet 025 Discontinued Active Problems Problem Noted Date Diagnosed Date Palpitations 09/04/2024 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 Assessment & Plan (01/30/2024 10:11 AM BEAM DYER RECESSED 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): -pt self reports trichiasis LLL; self-treated with epilation 2 days ago -no trichiatic lashes identified today -ed pt not to epilate lashes until appt with oculoplastics -RTC 4-6 weeks oculoplastics for eyelash electrolysis LLL 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 She has been hospitalized at [facility] with what sounds to be extensive diagnostic testing completed. Medical records will be obtained for review. Anxiety 12/21/2015 Depressive disorder 12/21/2015 Migraine 02/12/2012 MIRELLA (generalized anxiety disorder) 11/11/2011 Immunizations Immunization Administration Dates Next Due Pfizer SARS-CoV-2 Monovalent Vaccination (12+ Yrs) PURPLE 08/02/2020,07/12/2020 Social History Tobacco Use Types Packs/Day Years Used Date Smoking Tobacco: Never Smokeless Tobacco: Never Snuff Tobacco Cessation:Counseling Given: Not Answered Personal Safety Answer Date Recorded Have you [...] Sign Reading Time Taken Comments Blood Pressure 124/83 09/04/2024 7:57 AM CDT Pulse 96 09/04/2024 7:57 AM CDT Temperature 36.6 C (97.8 F) 07/24/2023 7:38 PM CDT Respiratory Rate 16 07/24/2023 7:38 PM CDT Oxygen Saturation 98% 09/04/2024 7:57 AM CDT Inhaled Oxygen Concentration - - Weight 98.9 kg (218 lb) 09/04/2024 7:57 AM CDT Height 165.1 cm (5' 5) 09/04/2024 7:57 AM CDT Body Mass Index 36.28 09/04/2024 7:57 AM CDT Plan of Treatment Upcoming Encounters Date Type Department Care Team (Latest Contact Info) Description 09/29/2024 8:30 AM CDT Hospital Encounter [facility] Electrophysiology Lab 1 [place] [phone] Ravin Heath MD [address] [facility] [address] [place] [address] Palpitations 09/29/2024 8:30 AM CDT - 09/29/2024 9:50 AM CDT Surgery [facility] Electrophysiology Lab 1 [place] [address] Ravin Heath MD [address] [address] [place] [address] TILT TABLE EVALUATION Procedures Procedure Name Priority Date/Time Associated Diagnosis Comments ECG 12-LEAD Routine 09/04/2024 8:07 AM CDT Palpitations from Last 3 Months Results * ECG 12 lead (09/04/2024 8:07 AM CDT) Ravin Heath MD ECG ORDERABLES Edited Result - Final from Last 3 Months [place] Rule. [place] Rule[place] Care Teams Directory Carrier Relationship Specialty Start Date End Date Lisa Pires MD [address] [facility] [address] [place] [address] PCP - General Family Medicine 06/17/20
--- OUTSIDE RECORDS SUMMARY | 2024-09-25 08:32 | XMS_ITS | Clinical Summary ---
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 In [...] right-sided numbness. She has been hospitalized at [facility] with what sounds to be extensive diagnostic testing completed. Medical records will be obtained for review. Anxiety 12/21/2015 Depressive disorder 12/21/2015 Migraine 02/12/2012 MIRELLA (generalized anxiety disorder) 11/11/2011 Encounters Date Type Department Care Team Description 09/04/2024 8:00 AM CDT Office Visit [facility] [address] [place] [address] 8th [place] [address] [place] [address] Ravin Heath MD Palpitations (Primary Dx) 09/04/2024 Telephone [facility] [address] [place] [address] 8th [place] [address] [place] [address] Ravin Heath MD 09/04/2024 Results Follow-Up [facility] [address] [place] [address] 8th [place] [address] [place] [address] Ravin Heath MD ECG 12 lead 07/01/2024 9:15 AM CDT Office Visit [facility] Ophthalmology [address] [facility] Health 6th [place] [address] Meggan Devine MD PhD 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] (Primary Dx) 06/26/2024 Telephone [facility] [address] [place] [address] 8th [place] [address] [place] [address] Sydney Padilla from Last 3 Months Immunizations [...] Description 09/29/2024 8:30 AM CDT Hospital Encounter [facility] Electrophysiology Lab 1 [place] [address] Ravin Heath MD [address] [place] [address] Palpitations 09/29/2024 8:30 AM CDT - 09/29/2024 9:50 AM CDT Surgery [facility] Electrophysiology Lab 1 [place] [address] Ravin Heath MD [address] [place] [address] TILT TABLE EVALUATION Health Maintenance Due Date Last Done Comments Cervical Cancer Screening 1985 Depression Screening 1985 Hepatitis C Screening 1985 DTaP/Tdap/Td Vaccine (1 - Tdap) 05/02/1998 Varicella Vaccines (1 of 2 - 13+ 2-dose series) 05/02/2000 Hepatitis B Screening 05/02/2005 Regular Well Visit/Exam 18-64 05/02/2005 HPV Vaccines (1 - 3-dose SCD M series) 05/02/2014 Covid-19 Vaccine (3 - 2023-2 5 season) 2023 08/02/2020, 07/12/2020 Influenza Vaccine (#1) 2024 6, 12/06/2011 Pneumococcal vaccine <65 Aged Out No longer eligible based on patient's age to complete this topic Procedures Procedure Name Priority Date/Time Associated Diagnosis Comments ECG 12-LEAD Routine 09/04/2024 8:07 AM CDT Palpitations from Last 3 Months Results * ECG 12 lead (09/04/2024 8:07 AM CDT) Ravin Heath MD ECG ORDERABLES Edited Result - Final from Last 3 Months Insurance [facility] [employer] [place] [employer] [place] Care Teams Fish Hatchery Worker Relationship Specialty Start Date End Date Lisa Pires MD [address] [facility] [address] [place] [address] PCP - General Family Medicine 06/17/20
--- OUTSIDE RECORDS SUMMARY | 2024-09-25 08:32 | XMS_ITS | Patient Health Record ---
Author Organization [facility] As [facility] [facility] Address [address] [facility] [address] [place] [address] Care Team Providers Care Reporting Coordinator Name Role Phone Chen Oviedo Unavailable [phone] WalterAlex maciel Unavailable [phone] Allergies Allergen (clinical drug ingredient) Drug/Non Drug [...] Oxazepam (BZO) NEG 0 - 300 ng/ml 1-fankaworpd-8,9-txmknfru-6,3-diphenylpyrrolidine (SHANNON P) NEG 0 - 300 ng/ml Methamphetamine (MET) NEG 0 - 1000 ng/ml Methylenedioxymethamphetamine (MDMA) NEG 0 - 500 ng/ml Morphine (MOP 300/FYU1936) NEG 0 - 300 ng/ml Methadone (MTD) NEG 0 - 300 ng/ml Phencyclidine (PCP) NEG 0 - 25 ng/ml Nortriptyline (TCA) NEG 0 - 1000 ng/ml Oxycodone NEG 0 - 300 ng/ml x NEG 0 - 300 ng/ml UDT Reviewed date:08/21/2024 03:20:21 PM Interpretation: Performing Lab: Notes/Report: THC n 0 - 50 ng/ml Cocaine n 0 - 300 ng/ml Amphetamine n 0 - 1000 ng/ml Buprenorphine (BUP) n 0 - 10 ng/ml Secobarbital (Bar) n 0 - 300 ng/ml Oxazepam (BZO) n 0 - 300 ng/ml 0-hwuhqnltcf-4,4-qicqehqi-6,3-diphenylpyrrolidine (SHANNON P) n 0 - 300 ng/ml Methamphetamine (MET) n 0 - 1000 ng/ml Methylenedioxymethamphetamine (MDMA) n 0 - 500 ng/ml Morphine (MOP 300/KLX1361) n 0 - 300 ng/ml Methadone (MTD) n 0 - 300 ng/ml Phencyclidine (PCP) n 0 - 25 ng/ml Nortriptyline (TCA) n 0 - 1000 ng/ml Oxycodone n 0 - 300 ng/ml x n 0 - 300 ng/ml UDT Reviewed date:09/09/2024 09:57:13 AM Interpretation: Performing Lab: Notes/Report: THC n 0 - 50 ng/ml Cocaine n 0 - 300 ng/ml Amphetamine n 0 - 1000 ng/ml Buprenorphine (BUP) n 0 - 10 ng/ml Secobarbital (Bar) n 0 - 300 ng/ml Oxazepam (BZO) n 0 - 300 ng/ml 2-qvnjixwoxg-5,1-sulydujw-2,3-diphenylpyrrolidine (SHANNON P) n 0 - 300 ng/ml Methamphetamine (MET) n 0 - 1000 ng/ml Methylenedioxymethamphetamine (MDMA) n 0 - 500 ng/ml Morphine (MOP 300/ZNK2245) n 0 - 300 ng/ml Methadone (MTD) n 0 - 300 ng/ml Phencyclidine (PCP) n 0 - 25 ng/ml Nortriptyline (TCA) n 0 - 1000 ng/ml Oxycodone n 0 - 300 ng/ml x n 0 - 300 ng/ml Reason For Referral No Information Medications Medication SIG (Take, Route, Frequency, Duration) Notes Start Date End Date Status Atomoxetine HCl 25 MG 1 capsule Oral onc e a day; Duration: 30 days 09/09/2024 11/08/2024 Active clonazePAM 0.5 MG 0.5 tablet Orally Once a day; Duration: 30 days taking over script 09/09/2024 Active Amitriptyline HCl 10 MG 1 tablet at bedtime Orally Once a day; Duration: 90 days Active Venlafaxine HCl 37.5 MG 1 tablet with food Orally Once a day; Duration: 90 days Active Magnesium 250 MG 1 tablet with a meal Orally Once a day Active Riboflavin 400 MG 1 tablet Orally Once a day Active Ubrelvy 100 MG 1 tablet as needed, may take second dose at least 2 hours after first dose up to 2 tablets per day as needed Orally Once a day Active Social History [...] Status Risk Notes Problem Generalized anxiety disorder (84340640) MIRELLA (generalized anxiety disorder) (F41.1) Active confirmed Problem Mild recurrent major depression (63394252) MDD (major depressive disorder), recurrent episode, mild (F33.0) Active confirmed Problem Posttraumatic stress disorder (74558948) Chronic post-traumatic stress disorder (PTSD) (F43.12) Active confirmed Problem Attention deficit hyperactivity disorder (831379464) Attention deficit hyperactivity disorder (ADHD), unspecified ADHD type (F90.9) Active confirmed Problem Unable to concentrate (finding) (83142139) Difficulty concentrating (R41.840) Active confirmed Vital Signs Heart Rate 90 /min 09/09/2024 Blood pressure diastolic 77 mm Hg 09/09/2024 Weight-kg 97.98 kg 09/09/2024 Blood pressure systolic 111 mm Hg 09/09/2024 Weight 216 lbs 09/09/2024 Procedures Procedure Date Ordered Date Performed Result Body Sit e ADHD Testing 07/15/2024 N/A Encounters Encounter Location Date [facility] [address] [address] 01/14/2024 Chengeorgi Oviedo MDD (major depressiv e disorder), recurrent episode, mild F33.0 ; MIRELLA (generalized anxiety disorder) F41.1 and Chronic post-traumatic stress disorder (PTSD) F43.[address] [address] 04/06/2024 Chengeorgi Oviedo MDD (major depressiv e disorder), recurrent episode, mild F33.0 ; MIRELLA (generalized anxiety disorder) F41.1 and Chronic post-traumatic stress disorder (PTSD) F43.[address] [address] 07/15/2024 Chengeorgi Oviedo MDD (major depressiv e disorder), recurrent episode, mild F33.0 ; MIRELLA (generalized anxiety disorder) F41.1 ; Chronic post-traumatic stress disorder (PTSD) F43.12 ; Encounter for screening for cardiovascular disorders Z13.6 ; Encounter for screening for depression Z13.31 and Difficulty concentrating R41.840 [facility] [address] [address] 08/19/2024 Alex Watson Attention deficit hyperactivity disorder (ADHD), unspecified ADHD type F90.9 [facility] [address] [address] 09/09/2024 Chen Preet MIRELLA (generalized anxiety disorder) F41.1 ; MDD (major depressive disorder), recurrent episode, mild F33.0 ; Chronic post-traumatic stress disorder (PTSD) F43.12 and Difficulty concentrating R41.840 [facility] [address] [address] 08/03/2024 Chengeorgi Oviedo MDD (major depressiv e disorder), [...] worsened nightmares -cont counseling UDT done today 08/03/2024 MDD (major depressive disorder), recurrent episode, mild (ICD-10 - F33.0) 08/19/2024 Attention deficit hyperactivity disorder (ADHD), unspecified [...] exercises and attention regulation techniques is encouraged. 09/09/2024 MIRELLA (generalized anxiety disorder) (ICD-10 - F41.1) 07/15/2024 MIRELLA (generalized anxiety disorder) (ICD-10 - F41.1) 07/15/2024 MDD (major depressive disorder), recurrent episode, mild (ICD-10 - F33.0) Amitriptyline 10mg qHS per neurology (migraines) 07/15/2024 Chronic post-traumatic stress disorder (PTSD) (ICD-10 - F43.12) 09/09/2024 MDD (major depressive disorder), recurrent episode, mild (ICD-10 - F33.0) Amitriptyline 10mg qHS per neurology (migraines) 01/14/2024 Chronic post-traumatic stress disorder (PTSD) (ICD-10 [...] post-traumatic stress disorder (PTSD) (ICD-10 - F43.12) 09/09/2024 Chronic post-traumatic stress disorder (PTSD) (ICD-10 - F43.12) 07/15/2024 Encounter for screening for cardiovascular disorders (ICD-10 - Z13.6) 07/15/2024 Encounter for screening for depression (ICD-10 - Z13.31) 09/09/2024 Difficulty concentrating (ICD-10 - R41.840) Discussed risks/benefits/ alternatives to atomoxetine, including GI side effects, weight loss, irritability, constipation, sexual dysfunction, increase in blood pressure and liver damage. Patient denies any h/o cardiovascular disease, including hypertension, tachyarrhythmia s. 07/15/2024 Difficulty concentrating (ICD-10 - R41.840) 01/14/2024 [...] of psychotropic medications. -Crisis prevention hotline 988. 09/09/2024 Other Discussed ADHD evaluation, no cognitive markers outside normal range, however questionnaire supportive of dx. Difficulty concentrating at work is negatively impacting functioning. Depression overall stable, less likely causing symptoms. -Start atomoxetine 25mg daily, monitor for ADHD symptom improvement. Patient educated on all medications including potential benefits, side effects, risks. Educated on proper dosing schedule and importance of compliance. -Assessment and treatment plan reviewed with patient. [...] Next Appt Details Provider Name:Chen Radha rios, 10/21/2024 08:00:00 AM, [address], [place], [address], Insurance Providers Payer Name Payer Address Payer Phone Subscriber Number Group Number Insured Name Patient Relationship to Insured Coverage Start Date Coverage End Date [facility] [address] [place] [address] [id number] BAO DACOSTA Self - patient is the [...]
--- OUTSIDE RECORDS SUMMARY | 2024-09-25 08:32 | XMS_ITS | Encounter Summary ---
Author Organization [facility] Health Address [address] [place] [address] Care Team Providers Care Final Inspector Balance Wheel Name Role Phone Cheryl Calvin MD Unavailable [phone] Koby Shah DO Unavailable Lisa Pires MD Primary Care Provider U Sariah Eden PA-C Primary Care Provider [phone] Encounter Details Date Type Department Care Team (Late Contact Info) Description 01/01/2014 Therapy Visit [facility] DEPT Unknown, Provider Social History Tobacco Use Types Packs/Day Years Used Date Smoking Tobacco: Never Smokeless Tobacco: Never Alcohol Use Standard Drinks/Week Comments No 0 (1 standard drink = 0.6 oz pur e alcohol) Comments No Sex and Gender Information Value Date Recorded Sex Assigned at Not on file Legal Sex Female 1:55 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 Gender Identity Not on file Sexual Orientation Not on file documented as of this encounter Plan of Treatment Upcoming Encounters Date Type Department Care Team (Late Contact Info) Description 12/01/2024 3:40 PM CDT Office Visit [facility] Health Neurosciences [address] [place], [place] [phone] Pavan Hernandez MD [address] [place], [place] [phone] documented as of this encounter Visit Diagnoses Not on filedocumented in this encounter Care Teams Final Inspector Balance Wheel Relationship Specialty Start Date End Date Lisa Pires MD [address] [place] [address] PCP - General Family Medicine 04/16/23 05/25/24 Sariah Luo PA-C [address] [place] [address] PCP - General 05/26/24 Cheryl Calvin MD Orthopedic Surgery 10/31/11 Koby Shah DO Orthopedic Surgery 09/09/12 documented as of this encounter
--- OUTSIDE RECORDS SUMMARY | 2024-09-25 08:32 | XMS_ITS | Patient Health Record ---
Author Organization [facility] Address [address] [facility] [address] [place], [place] [id number] Care Team Providers Care Automatic Coin Machine Mechanic Name Role Phone Gabriel Ewing Primary Care Provider Pollo Thompson Unavailable [phone] Migration, Provider Unavailable Unavailable Allergies Allergen (clinical [...] Date Provider Diagnosis [facility] [place] [address] [address] [facility] [address] [place], [place] [id number] 02/08/2024 Provider Migration Plan Of Treatment No Information Insurance Providers Payer Name Payer Address Payer Phone Subscriber Number Group Number Insured Name Patient Relationship to Insured Coverage Start Date Coverage End Date Radha [facility] [address] [place] [address] [id number] Bethany Dacosta Self - patient is the insured Medical (General) History Medical History History ICD Code Pertinent Medical History: Other,
--- OUTSIDE RECORDS SUMMARY | 2024-09-25 08:33 | XMS_ITS ---
Author Organization [facility] Address [facility] [address] [id number] Care Team Providers Care Court Operations Clerk Name Role Phone Gabriel Ewing Primary Care Provider Pollo Thompson Unavailable [phone] Migration, Provider Unavailable Unavailable Allergies Allergen (clinical [...] Location Date Provider Diagnosis [facility] [place] [address] [address] [id number] 02/08/2024 Provider Migration Plan Of Treatment No Information Progress Notes * Bethany DACOSTADOB:1985 (39 yo F)Acc No.[id number]:02/08/2024 Patient: Bethany SANTIAGO Provider: Coy matamoros Migration :1985 A ge:38 Y S ex:Female Date:02/08/2024 Address:[address] [place], [place] [id number] Pcp:Gabriel Ewing Subjective: * Chief Complaints: * [...] Electronic signature of Prov ider Migration on 09/25/2024 at 08:32 AM CDT Sign off status: Pending * Provider: Coy matamoros Migration Date: 04/10/2023 Generated for Gagan morrell/Ruby/Carmen on: 0 09/25/2024 08:32 AM CDT
== END 2024-09-25 08:30 | disposition home or self-care (01) ==
LOC: ANHIMG 08:31
PROVIDERS: PCP Family Medicine; Visit Provider Family Medicine
DX: I73.9 Peripheral vascular disease, unspecified (principal)
CPT/HCPCS: 93922